=== PATIENT | male | born 1985 | race Caucasian/White ===

== ENCOUNTER 2020-04-13 13:52 | Emergency (ER) | payer OTHER, SELFPAY ==
[2020-04-13 14:06] VITALS: BP 140/86; PULSE 76; RESP 16; TEMP 36.6; O2SAT 98; BMI 40.4
--- NOTE | 2020-04-13 14:15 | XR_ITS ---
EXAMINATION: LUMBAR SPINE CLINICAL INFORMATION: Pain post fall COMPARISON: None TECHNIQUE: 3 views of the lumbar spine FINDINGS: There is mild curvature of the lower lumbar spine to the right. Bone alignment is otherwise normal. No fracture or dislocation is seen. Disc spaces are normal. XR/XR hip LT w PEL1V IMPRESSION: Mild scoliosis otherwise unremarkable exam EXAMINATION: Left hip and pelvis x-ray CLINICAL INFORMATION: Pain post fall COMPARISON: None. TECHNIQUE: One view of the pelvis and 2 views of the left hip FINDINGS: Bone alignment is normal. No fracture or dislocation is seen. The left hip joint is normal. Bones of the pelvis are normal. Soft tissues are normal. IMPRESSION: Unremarkable examination.
--- NOTE | 2020-04-13 14:15 | ED.FALL ---
HPI - Fall General Chief Complaint: Fall Stated Complaint: fall - hip pain Time Seen by Provider: 04/13/20 14:13 Source: patient Mode of arrival: ambulatory Limitations: no limitations History of Present Illness HPI Narrative: 34 y/o male with hx legal blindness, chronic pain on chronic opiates and muscle relaxers presenting with left hip pain and low back pain for the last 5 days after he slipped and fell down a set of stairs. He has been taking Tylenol and his Percocet and Flexeril at home with minimal improvement. He states the pain is in his left lower back, left hip and buttocks. He denies numbness, tingling, incontinence. No hx IVDA. He ambulates with a steady gait. MD complaint: fall Onset (ago): day(s) (5) Fall from: standing Fall witnessed: no Place fall occurred: home Loss of consciousness: none Prolonged down time: no Symptoms prior to fall: none Context: tripped/slipped Location of injury: back Location of injury - extremities: left: thigh (& left thip) Severity: moderate Severity scale (1-10): 8 Quality: aching Associated symptoms (after fall): denies Related Data Previous Rx's Medication Instructions Recorded ketorolac 10 mg PO Q8H PRN 3 Days #10 tab 04/13/20 lidocaine [Lidoderm] 1 patch TOPICAL DAILY #15 ea 04/13/20 Allergies Allergy/AdvReac Type Severity Reaction Status Date / Time amlodipine Allergy Unknown Verified 11/25/13 00:00 ibuprofen [From MOTRIN] Allergy Unknown DIFF Unverified 01/22/20 17:32 URINATING Metoprolol Succinate Allergy Unknown Uncoded 11/25/13 00:00 Review of Systems Review of Systems: Constitutional: No Fever, No Chills Cardiovascular: No Chest Pain, No SOB Respiratory: No Cough, No Sputum Gastrointestinal: No Nausea, No Vomiting, No Diarrhea, No abdominal Pain Genitourinary: No Dysuria, No Hematuria Musculoskeletal: + joint pain, + Myalgias Skin: No Skin Lesions, No rash Neuro: No Weakness, No Numbness, No Dizziness, No Headache Psych: No Anxiety/Panic, No Depression Heme/Lymph: No Bruising PMFSH Past Medical History Attestation statement: The following information was validated with the patient. Medical History Anxiety Depression Left sided numbness Social History Social History Advance Directives: No Advance Directives Information Provided: Yes Physical Exam Vital Signs: Vital Signs: Last Vital Signs Temp 97.8 F 04/13/20 14:06 Pulse 76 04/13/20 14:06 Resp 16 04/13/20 14:06 BP 140/86 H 04/13/20 14:06 Pulse Ox 98 04/13/20 14:06 Body Mass Index 40.4 Appearance: Alert. Oriented X3. No acute distress. HEENT: normal inspection Respiratory: No respiratory distress. Skin: Skin warm and dry. Normal skin color. Normal skin turgor. No rashes. Extremities: left buttock/SI joint tenderness, no deformity of left hip. pelvis stable. left lateral thigh tenderness. no ecchymosis. Back: left low lumbar tenderness, no spinal tenderness, limited rotation to the right and spinal flexion due to pain. no CVA tenderness Neuro: Oriented X 3. Right arm weakness, (chronic x10 years per patient) Course Course Course Narrative: 34 y/o male presenting with low back and left hip/thigh pain after falling down 7 stairs about 5 days ago. XR are normal. Pain is likely due to muscular contusion. He reports relief with IM toradol and is requesting Rx for Toradol - sent to pharmacy. He will f/u with his PCP this week. Stable for d/c. Critical Care Time Critical Care Time Critical Care Time: No Discharge Plan Discharge Clinical Impression: Contusion Qualifiers: Encounter type: initial encounter Contusion area: hip Laterality: left Qualified Code(s): S70.02XA - Contusion of left hip, initial encounter Fall down stairs Qualifiers: Encounter type: initial encounter Qualified Code(s): W10.8XXA - Fall (on) (from) other stairs and steps, initial encounter Patient Disposition: Home, Self-Care Instructions: Low Back Strain (ED), Lower Back Exercises (ED), Hip Contusion (ED) Additional Instructions: Your x-rays today in the [facility] were normal. Use ice and/or heat to the area several times per day for 20 minutes at a time. Limit bending, lifting >10lbs, and twisting motions. Continue to take your previously prescribed Percocet and Flexeril as needed for pain. Follow up with your doctor this week. If you have worsening pain, new numbness, tingling, loss of function, or continence call 911 or come back to the ER for further evaluation. Prescriptions: New ketorolac 10 mg tablet 10 mg PO Q8H PRN (Reason: pain) 3 Days Qty: 10 RF: 0 lidocaine [Lidoderm] 5 % adhesive patch,medicated 1 patch topical DAILY Qty: 15 RF: 0
--- NOTE | 2020-04-13 14:16 | XR_ITS ---
EXAMINATION: LUMBAR SPINE CLINICAL INFORMATION: Pain post fall COMPARISON: None TECHNIQUE: 3 views of the lumbar spine FINDINGS: There is mild curvature of the lower lumbar spine to the right. Bone alignment is otherwise normal. No fracture or dislocation is seen. Disc spaces are normal. XR/XR lumbar spine 2-3V IMPRESSION: Mild scoliosis otherwise unremarkable exam EXAMINATION: Left hip and pelvis x-ray CLINICAL INFORMATION: Pain post fall COMPARISON: None. TECHNIQUE: One view of the pelvis and 2 views of the left hip FINDINGS: Bone alignment is normal. No fracture or dislocation is seen. The left hip joint is normal. Bones of the pelvis are normal. Soft tissues are normal. IMPRESSION: Unremarkable examination.
[2020-04-13] MEDS: oxyCODONE HCl Immed Release 5 MG TABLET 10 MG PO (15:02)
[2020-04-13] MEDS: Ketorolac Tromethamine 30 MG/ML VIAL IM (15:03)
== END 2020-04-13 15:35 | disposition home or self-care (01) ==
PROVIDERS: Emergency Provider Emergency Medicine
DX: S70.02XA Contusion of left hip, initial encounter (principal); M25.552 Pain in left hip; M54.5 Low back pain; G89.29 Other chronic pain; W01.0XXA Fall on same level from slipping, tripping and stumbling without subsequent striking against object, initial encounter; Y93.01 Activity, walking, marching and hiking; Y92.9 Unspecified place or not applicable; Y99.9 Unspecified external cause status; Z79.899 Other long term (current) drug therapy
CPT/HCPCS: 72100; 73502; 96372; 99283; 99284; J1885

== ENCOUNTER 2020-08-21 18:57 | Emergency (ER) | payer OTHER, SELFPAY ==
[2020-08-21 19:18] VITALS: BP 124/78; PULSE 94; RESP 18; TEMP 36.7; O2SAT 97; BMI 42.5
[2020-08-21 20:00] VITALS: BP 126/82; PULSE 83; RESP 16; TEMP 36.8; O2SAT 100
--- NOTE | 2020-08-21 20:12 | ECG_ITS ---
Test Reason : CHEST PAIN Blood Pressure : / mmHG Vent. Rate : 088 BPM Atrial Rate : 088 BPM P-R Int : 174 ms QRS Dur : 100 ms QT Int : 382 ms P-R-T Axes : 031 -10 025 degrees QTc Int : 462 ms Normal sinus rhythm Nonspecific T wave changes Cannot rule out anteroseptal infarct Prolonged QT Abnormal ECG When compared with ECG of 21-JAN-2011 09:11, Poor R wave progression. Nonspecific T wave changes Referred By: Generic ED Physician Electronically Signed By:Eddi Frey
--- NOTE | 2020-08-21 20:22 | ED.GENADULT ---
HPI - General Adult General Chief complaint: General Medical Stated complaint: muscle cramps Time Seen by Provider: 08/21/20 20:22 Source: patient Mode of arrival: ambulatory Limitations: no limitations History of Present Illness HPI narrative: Patient with History of anxiety depression chronic muscular pain ran out of his Flexeril yesterday since then complaining of increased muscular pain patient already received Valente Valente vaccine last week and has no exposure to COVID, increased anxiety Related Data Previous Rx's Medication Instructions Recorded ketorolac 10 mg PO Q8H PRN 3 Days #10 tab 04/13/20 lidocaine [Lidoderm] 1 patch TOPICAL DAILY #15 ea 04/13/20 Allergies Allergy/AdvReac Type Severity Reaction Status Date / Time amlodipine Allergy Unknown Verified 11/25/13 00:00 ibuprofen [From MOTRIN] Allergy Unknown DIFF Unverified 01/22/20 17:32 URINATING Metoprolol Succinate Allergy Unknown Uncoded 11/25/13 00:00 Review of Systems Review of Systems: Constitutional : No Weight loss, No Fever, No Chills ENT/Mouth : No sore throat, No Rhinorrhea Eyes: No Eye Pain, No Swelling Cardiovascular : No Chest Pain, no palpitations Respiratory : No Cough, No Sputum, no shortness of breath Gastrointestinal : no Nausea, No Vomiting, No Diarrhea, No abdominal Pain, no black stools Genitourinary : No Dysuria, No Urinary Frequency Musculoskeletal : No joint pain, N++ Myalgias, No Joint Swelling Skin : No Skin Lesions, No rash Neuro : No Weakness, No Numbness, No Dizziness, No Headache Psych : No Anxiety/Panic, No Depression Heme/Lymph: No Bruising, No Lymphadenopathy Endocrine : No Polyuria, No Polydipsia All other systems reviewed and are negative PMFSH Past Medical History Medical History Anxiety Depression Left sided numbness Social History Social History Advance Directives: No Advance Directives Information Provided: No Physical Exam Vital Signs: Vital Signs: Last Vital Signs Temp 98.0 F 08/21/20 19:18 Pulse 94 08/21/20 19:18 Resp 18 08/21/20 19:18 BP 124/78 08/21/20 19:18 Pulse Ox 97 08/21/20 19:18 Body Mass Index 42.5 Appearance: Alert. Oriented X3. No acute distress. Eyes: Pupils equal, round and reactive to light. ENT: Pharynx normal. Neck: Normal inspection. Neck supple. CVS: Normal heart rate and rhythm. Pulses normal. Respiratory: No respiratory distress. Breath sounds normal. Abdomen: Soft and nontender. Bowel sounds are present, no mass palpable, no CVA tenderness Skin: Skin warm and dry. Normal skin color. Normal skin turgor. Extremities: No lower extremity edema. Diffuse muscular pain no signs of DVT Neuro: Oriented X 3. No motor deficit. No sensory deficit. Medical Decision Making MDM Narrative Medical decision making narrative: Patient with multiple problems anxiety depression chronic muscle pain on oxycodone and Flexeril comes here for diffuse body aches ran out of his Flexeril will give prescription of Flexeril advised to follow with PCP Discharge Plan Discharge Prescriptions: No Action ketorolac 10 mg tablet 10 mg PO Q8H PRN (Reason: pain) 3 Days Qty: 10 RF: 0 lidocaine [Lidoderm] 5 % adhesive patch,medicated 1 patch topical DAILY Qty: 15 RF: 0
[2020-08-21] MEDS: Cyclobenzaprine HCl 10 MG TABLET PO (20:43)
== END 2020-08-21 20:47 | disposition home or self-care (01) ==
PROVIDERS: Emergency Provider Internal Medicine
DX: M79.10 Myalgia, unspecified site (principal); F41.9 Anxiety disorder, unspecified; F33.1 Major depressive disorder, recurrent, moderate; Z79.899 Other long term (current) drug therapy
CPT/HCPCS: 93005; 99283; 99284

== ENCOUNTER 2021-01-27 15:54 | Inpatient (IN) | payer OTHER, SELFPAY ==
[2021-01-27 16:02] VITALS: BP 145/91; BP 150/88; PULSE 81; PULSE 98; RESP 16; TEMP 37.4; O2SAT 99; BMI 42.3
--- NOTE | 2021-01-27 16:03 | ED_ITS ---
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 He reports talking to his psychiatrist this morning and telling him that he was feeling this way - he was advised to call crisis. RAYGOZA on scene who called 911 for transport to the hospital. He reports voices are telling him to kill himself. He plans to jump off of a bridge. He reports attempting suicide a few years ago when he jumped off of a 2nd story porch. He reports no recent medication changes. He has been compliant with his meds up until today. Denies drugs or alcohol use. <MICKIE Gomes - Last Filed: 01/27/21 19:05> MD complaint: suicidal ideation, feels depressed and hallucinations <MICKIE Gomes - Last Filed: 01/27/21 19:05> Onset (ago): week(s) (1) <MICKIE Gomes - Last Filed: 01/27/21 19:05> Duration: getting worse <MICKIE Gomes Last Filed: 01/27/21 19:05> History of same: Yes <MICKIE Gomes - Last Filed: 01/27/21 19:05> Relieving factors: none <MICKIE Gomes Last Filed: 01/27/21 19:05> Exacerbating factors: none <MICKIE Gomes Last Filed: 01/27/21 19:05> Context: not taking psychiatric medications <MICKIE Gomes - Last Filed: 01/27/21 19:05> Associated psychiatric symptoms: depression, suicidal ideation and auditory hallucinations <MICKIE Masters - Last Filed: 01/27/21 19:05> Associated symptoms: headache and insomnia <MICKIE Gomes - Last Filed: 01/27/21 19:05> Treatments prior to arrival: placed on mental health hold <MICKIE Gomes - Last Filed: 01/27/21 19:05> If self harm: admits thoughts of self harm and has plan <MICKIE Gomes - Last Filed: 01/27/21 19:05> Details of plan: jump off of a bridge <MICKIE Gomes - Last Filed: 01/27/21 19:05> Related Data Home Medications: Home Medications Medication Instructions Recorded Confirmed Lotemax 1 drp OPHTHALMIC-LEFT DAILY 01/27/21 01/27/21 clonidine HCl 0.2 mg tablet 0.4 mg PO BEDTIME 01/27/21 01/27/21 cyclobenzaprine 10 mg tablet 10 mg PO TID PRN 01/27/21 01/27/21 fenofibrate 160 mg tablet 1 tab PO DAILY 01/27/21 01/27/21 hydrochlorothiazide 25 mg tablet 1 tab PO DAILY 01/27/21 01/27/21 lisinopril 40 mg tablet 1 tab PO DAILY 01/27/21 01/27/21 lorazepam 1 mg tablet 1 tab PO 3XW PRN 01/27/21 01/27/21 omeprazole 20 mg capsule,delayed 1 cap PO BID 01/27/21 01/27/21 release oxcarbazepine 600 mg tablet 600 mg PO BID 01/27/21 01/27/21 oxycodone-acetaminophen 5 mg-325 1 - 2 tab PO Q6H PRN 01/27/21 01/27/21 mg tablet paroxetine HCl 30 mg tablet 1 tab PO BEDTIME 01/27/21 01/27/21 simvastatin 40 mg tablet 1 tab PO BEDTIME 01/27/21 01/27/21 valacyclovir 500 mg tablet 1 tab PO BID 01/27/21 01/27/21 venlafaxine 37.5 mg 1 cap PO QAM 01/27/21 01/27/21 capsule,extended release 24 hr venlafaxine 75 mg capsule,extended 75 mg PO DAILY 01/27/21 01/27/21 release 24 hr ziprasidone HCl 60 mg capsule 1 cap PO BID 01/27/21 01/27/21 <MICKIE Gomes - Last Filed: 01/27/21 19:05> Allergies/Adverse Reactions: Allergies Allergy/AdvReac Type Severity Reaction Status Date / Time amlodipine Allergy Unknown Unknown Verified 01/27/21 19:31 ibuprofen [From MOTRIN] Allergy Unknown DIFF Verified 01/27/21 19:31 URINATING Metoprolol Succinate Allergy Unknown Unknown Uncoded 01/27/21 19:31 <MICKIE Gomes - Last Filed: 01/27/21 19:05> Review of Systems Review of Systems: Constitutional: No Fever, No Chills Cardiovascular: No Chest Pain, No SOB, No Orthopnea, No Edema Respiratory: No Cough, No Sputum, No Wheezing, No dyspnea Gastrointestinal: No Nausea, No Vomiting, No Diarrhea, No abdominal Pain Genitourinary: No Dysuria, No Urinary Frequency, No Hematuria Musculoskeletal: + joint pain, No Myalgias Skin: No Skin Lesions, No rash Neuro: No Weakness, No Numbness, No Dizziness, No Headache Psych: + Anxiety/Panic, + Depression, +SI, +auditory hallucinations, no visual hallucinations Heme/Lymph: No Bruising, No Lymphadenopathy <MICKIE Gomes Last Filed: 01/27/21 19:05> [facility] Past Medical History Medical History: Medical History Anxiety Depression Left sided numbness <MICKIE Gomes Last Filed: 01/27/21 19:05> Social History Social History: Social History Alcohol intake: never Advance Directives: No Advance Directives Information Provided: No <MICKIE Gomes Last Filed: 01/27/21 19:05> Physical Exam Vital Signs: Vital Signs: Last Vital Signs Temp 98.2 F 01/27/21 20:27 Pulse 77 01/27/21 20:27 Resp 18 01/27/21 20:27 BP 118/79 01/27/21 20:27 Pulse Ox 98 01/27/21 20:27 Body Mass Index 42.3 <MICKIE Gomes - Last Filed: 01/27/21 19:05> Vital Signs: Last Vital Signs Temp 98.2 F 01/27/21 20:27 Pulse 77 01/27/21 20:27 Resp 18 01/27/21 20:27 BP 118/79 01/27/21 20:27 Pulse Ox 98 01/27/21 20:27 Body Mass Index 42.3 <MICKIE Askew - Last Filed: 01/27/21 20:35> Appearance: Alert. Oriented X3. No acute distress. Eyes: Pupils equal, round and reactive to light. Left eye with conjunctival injection ENT: Pharynx normal. Neck: Normal inspection. Neck supple. CVS: Normal heart rate and rhythm. Pulses normal. Respiratory: No respiratory distress. Breath sounds normal. Abdomen: Soft and nontender. +BS x4 Skin: Skin warm and dry. Normal skin color. Normal skin turgor. No rashes. Extremities: No lower extremity edema. RUE with significant scarring to upper medial arm, weak right hand grasp and sensation Neuro: Oriented X 3. Speaks in complete sentences. Steady gait. CN II-XII grossly intact Psych: flat affect, depression with suicidal thoughts, auditory hallucinations, poor judgment and insight <MICKIE Gomes - Last Filed: 01/27/21 19:05> Course Course Course Narrative: 35 y/o male with history of anxiety/depression and schizoaffective disorder, prior suicide attempt per his report who presents to the ER with SI, auditory hallucinations. Will get basic labs, UTox and have crisis evaluate him for possible inpatient psych treatment. <MICKIE Gomes - Last Filed: 01/27/21 19:05> Reevaluation(s) Reevaluation #1: [facility] saw him in the community and he is already an inpatient bed search. Labs returning with sodium of 126. Unknown baseline, last labs in our system are from 2016 with sodium 138. He has no confusion, AMS, nausea, vomiting. Most likely multifactorial, he is on HCTZ for HTN and multiple medications that can cause SIADH (lisinopril, multiple psych meds) will add on urine lytes and serum osm. will hold psych meds for now pending repeat sodium. Will plan for 500 cc NS slowly over the next couple of hours to correct possible volume depletion due to HCTZ and poor PO intake with his worsening depression. Will move to the main for IVF and repeat sodium. Will get labs from [facility] <MICKIE Gomes - Last Filed: 01/27/21 19:05> Reevaluation #2: Sodium was 135 at [facility] 12/10/20. Urine sodium 76, likely element of hypovolemic hyponatremia and HCTZ. Should improve with some IVF. Signed out to night provider who will follow up repeat sodium. <MICKIE Gomes - Last Filed: 01/27/21 19:05> MDM - Psych Lab Data Result diagrams: : 01/27/21 16:41 01/27/21 20:00 <MICKIE Gomes - Last Filed: 01/27/21 19:05> Labs: Lab Results 01/27/21 01/27/21 01/27/21 Range/Units 16:26 16:26 16:26 WBC (4.8-10.8) X10*3/uL RBC (4.60-5.80) X10*6/uL Hgb (14.0-18.0) g/dl Hct (42-52) % MCV (80-98) fL MCH (27.0-33.0) pg MCHC (31.0-36.0) g/dl RDW (11.0-16.0) % Plt Count (160-400) X10*3/uL MPV (9.4-12.4) fL Immature Gran % (Auto) (0.0-0.4) % Neut % (Auto) (45-73) % Lymph % (Auto) (20-40) % [place] % (Auto) (2-11) % Eos % (Auto) (0-4) % Baso % (Auto) (0-2) % Lymph # (Auto) (1.2-4.9) X10*3/uL [place] # (Auto) (0.1-1.2) X10*3/uL Eos # (Auto) (0.0-0.4) X10*3/uL Baso # (Auto) (0.0-0.2) X10*3/uL Abs Immat Gran (auto) (0.00-0.03) X10*3/uL Absolute Neuts (auto) (2.0-8.3) X10*3/uL Absolute Nucleated RBC (0.0-0.012) X10*3/uL Nucleated RBC % (auto) (0.0-0.2) /100WBC Sodium (135-145) mmol/L Potassium (3.3-5.1) mmol/L Chloride (96-108) mmol/L Carbon Dioxide (22-29) mmol/L Anion Gap (12-20) BUN (9-16) mg/dL Creatinine (0.5-1.4) mg/dL Estim Creat Clear Calc Estimated GFR Random Glucose (60-115) mg/dL Osmolality (281-305) mosm/kg Calcium (8.4-10.2) mg/dL Magnesium (1.6-2.6) mg/dL Total Bilirubin (0.0-1.0) mg/dL Direct Bilirubin (0.0-0.5) mg/dL AST (5-37) U/L ALT (0-40) U/L Alkaline Phosphatase (39-117) U/L Total Protein (6.5-8.0) g/dL Albumin (3.5-5.0) g/dL Urine Color YELLOW Urine Appearance CLEAR Urine pH 7.5 (5.0-8.0) Ur Specific [place] 1.015 (1.005-1.025) Urine Protein NEG (NEG-TRACE) MG/DL Urine Glucose (UA) NEG (NEG) MG/DL Urine Ketones NEG (NEG) MG/DL Urine Blood NEG (NEG) Urine Nitrite NEG (NEG) Ur Leukocyte Esterase NEG (NEG) Urine Osmolality (373-1093) mosm/kg Ur Random Sodium mmol/L Urine Opiates Screen Not Detected (Not Detect) Urine Fentanyl Screen Not Detected (Not Detect) Ur Barbiturates Screen Not Detected (Not Detect) Ur Phencyclidine Scrn Not Detected (Not Detect) Ur Amphetamines Screen Not Detected (Not Detect) U Benzodiazepines Scrn Not Detected (Not Detect) Urine Cocaine Screen Not Detected (Not Detect) U Marijuana (THC) Screen Not Detected (Not Detect) Ethyl Alcohol mg/dL COVID-19 (BILL) Negative (Negative) COVID-19 Clin Com See Note 01/27/21 01/27/21 01/27/21 Range/Units 16:30 16:30 16:41 WBC 9.0 (4.8-10.8) X10*3/uL RBC 4.53 L (4.60-5.80) X10*6/uL Hgb 14.1 (14.0-18.0) g/dl Hct 39.1 L (42-52) % MCV 86.3 (80-98) fL MCH 31.1 (27.0-33.0) pg MCHC 36.1 H (31.0-36.0) g/dl RDW 11.9 (11.0-16.0) % Plt Count 361 (160-400) X10*3/uL MPV 9.5 (9.4-12.4) fL Immature Gran % (Auto) 0.4 (0.0-0.4) % Neut % (Auto) 61.3 (45-73) % Lymph % (Auto) 28.0 (20-40) % [place] % (Auto) 8.7 (2-11) % Eos % (Auto) 1.2 (0-4) % Baso % (Auto) 0.4 (0-2) % Lymph # (Auto) 2.5 (1.2-4.9) X10*3/uL [place] # (Auto) 0.8 (0.1-1.2) X10*3/uL Eos # (Auto) 0.1 (0.0-0.4) X10*3/uL Baso # (Auto) 0.0 (0.0-0.2) X10*3/uL Abs Immat Gran (auto) 0.04 H (0.00-0.03) X10*3/uL Absolute Neuts (auto) 5.5 (2.0-8.3) X10*3/uL Absolute Nucleated RBC 0.000 (0.0-0.012) X10*3/uL Nucleated RBC % (auto) 0.0 (0.0-0.2) /100WBC Sodium (135-145) mmol/L Potassium (3.3-5.1) mmol/L Chloride (96-108) mmol/L Carbon Dioxide (22-29) mmol/L Anion Gap (12-20) BUN (9-16) mg/dL Creatinine (0.5-1.4) mg/dL Estim Creat Clear Calc Estimated GFR Random Glucose (60-115) mg/dL Osmolality (281-305) mosm/kg Calcium (8.4-10.2) mg/dL Magnesium (1.6-2.6) mg/dL Total Bilirubin (0.0-1.0) mg/dL Direct Bilirubin (0.0-0.5) mg/dL AST (5-37) U/L ALT (0-40) U/L Alkaline Phosphatase (39-117) U/L Total Protein (6.5-8.0) g/dL Albumin (3.5-5.0) g/dL Urine Color Urine Appearance Urine pH (5.0-8.0) Ur Specific [place] (1.005-1.025) Urine Protein (NEG-TRACE) MG/DL Urine Glucose (UA) (NEG) MG/DL Urine Ketones (NEG) MG/DL Urine Blood (NEG) Urine Nitrite (NEG) Ur Leukocyte Esterase (NEG) Urine Osmolality 461 (373-1093) mosm/kg Ur Random Sodium 76.0 mmol/L Urine Opiates Screen (Not Detect) Urine Fentanyl Screen (Not Detect) Ur Barbiturates Screen (Not Detect) Ur Phencyclidine Scrn (Not Detect) Ur Amphetamines Screen (Not Detect) U Benzodiazepines Scrn (Not Detect) Urine Cocaine Screen (Not Detect) U Marijuana (THC) Screen (Not Detect) Ethyl Alcohol mg/dL COVID-19 (BILL) (Negative) COVID-19 Clin Com 01/27/21 01/27/21 01/27/21 Range/Units 16:41 16:41 16:41 WBC (4.8-10.8) X10*3/uL RBC (4.60-5.80) X10*6/uL Hgb (14.0-18.0) g/dl Hct (42-52) % MCV (80-98) fL MCH (27.0-33.0) pg MCHC (31.0-36.0) g/dl RDW (11.0-16.0) % Plt Count (160-400) X10*3/uL MPV (9.4-12.4) fL Immature Gran % (Auto) (0.0-0.4) % Neut % (Auto) (45-73) % Lymph % (Auto) (20-40) % [place] % (Auto) (2-11) % Eos % (Auto) (0-4) % Baso % (Auto) (0-2) % Lymph # (Auto) (1.2-4.9) X10*3/uL [place] # (Auto) (0.1-1.2) X10*3/uL Eos # (Auto) (0.0-0.4) X10*3/uL Baso # (Auto) (0.0-0.2) X10*3/uL Abs Immat Gran (auto) (0.00-0.03) X10*3/uL Absolute Neuts (auto) (2.0-8.3) X10*3/uL Absolute Nucleated RBC (0.0-0.012) X10*3/uL Nucleated RBC % (auto) (0.0-0.2) /100WBC Sodium 126 L (135-145) mmol/L Potassium 3.9 (3.3-5.1) mmol/L Chloride 93 L (96-108) mmol/L Carbon Dioxide 23 (22-29) mmol/L Anion Gap 14 (12-20) BUN 8 L (9-16) mg/dL Creatinine 0.87 (0.5-1.4) mg/dL Estim Creat Clear Calc 151.8 Estimated GFR > 60 Random Glucose 127 H (60-115) mg/dL Osmolality 266 L (281-305) mosm/kg Calcium 9.5 (8.4-10.2) mg/dL Magnesium 1.9 (1.6-2.6) mg/dL Total Bilirubin 0.4 (0.0-1.0) mg/dL Direct Bilirubin 0.2 (0.0-0.5) mg/dL AST 16 (5-37) U/L ALT 16 (0-40) U/L Alkaline Phosphatase 71 (39-117) U/L Total Protein 7.8 (6.5-8.0) g/dL Albumin 5.1 H (3.5-5.0) g/dL Urine Color Urine Appearance Urine pH (5.0-8.0) Ur Specific [place] (1.005-1.025) Urine Protein (NEG-TRACE) MG/DL Urine Glucose (UA) (NEG) MG/DL Urine Ketones (NEG) MG/DL Urine Blood (NEG) Urine Nitrite (NEG) Ur Leukocyte Esterase (NEG) Urine Osmolality (373-1093) mosm/kg Ur Random Sodium mmol/L Urine Opiates Screen (Not Detect) Urine Fentanyl Screen (Not Detect) Ur Barbiturates Screen (Not Detect) Ur Phencyclidine Scrn (Not Detect) Ur Amphetamines Screen (Not Detect) U Benzodiazepines Scrn (Not Detect) Urine Cocaine Screen (Not Detect) U Marijuana (THC) Screen (Not Detect) Ethyl Alcohol < 10 mg/dL COVID-19 (BILL) (Negative) COVID-19 Clin Com 01/27/21 Range/Units 20:00 WBC (4.8-10.8) X10*3/uL RBC (4.60-5.80) X10*6/uL Hgb (14.0-18.0) g/dl Hct (42-52) % MCV (80-98) fL MCH (27.0-33.0) pg MCHC (31.0-36.0) g/dl RDW (11.0-16.0) % Plt Count (160-400) X10*3/uL MPV (9.4-12.4) fL Immature Gran % (Auto) (0.0-0.4) % Neut % (Auto) (45-73) % Lymph % (Auto) (20-40) % [place] % (Auto) (2-11) % Eos % (Auto) (0-4) % Baso % (Auto) (0-2) % Lymph # (Auto) (1.2-4.9) X10*3/uL [place] # (Auto) (0.1-1.2) X10*3/uL Eos # (Auto) (0.0-0.4) X10*3/uL Baso # (Auto) (0.0-0.2) X10*3/uL Abs Immat Gran (auto) (0.00-0.03) X10*3/uL Absolute Neuts (auto) (2.0-8.3) X10*3/uL Absolute Nucleated RBC (0.0-0.012) X10*3/uL Nucleated RBC % (auto) (0.0-0.2) /100WBC Sodium 126 L (135-145) mmol/L Potassium (3.3-5.1) mmol/L Chloride (96-108) mmol/L Carbon Dioxide (22-29) mmol/L Anion Gap (12-20) BUN (9-16) mg/dL Creatinine (0.5-1.4) mg/dL Estim Creat Clear Calc Estimated GFR Random Glucose (60-115) mg/dL Osmolality (281-305) mosm/kg Calcium (8.4-10.2) mg/dL Magnesium (1.6-2.6) mg/dL Total Bilirubin (0.0-1.0) mg/dL Direct Bilirubin (0.0-0.5) mg/dL AST (5-37) U/L ALT (0-40) U/L Alkaline Phosphatase (39-117) U/L Total Protein (6.5-8.0) g/dL Albumin (3.5-5.0) g/dL Urine Color Urine Appearance Urine pH (5.0-8.0) Ur Specific [place] (1.005-1.025) Urine Protein (NEG-TRACE) MG/DL Urine Glucose (UA) (NEG) MG/DL Urine Ketones (NEG) MG/DL Urine Blood (NEG) Urine Nitrite (NEG) Ur Leukocyte Esterase (NEG) Urine Osmolality (373-1093) mosm/kg Ur Random Sodium mmol/L Urine Opiates Screen (Not Detect) Urine Fentanyl Screen (Not Detect) Ur Barbiturates Screen (Not Detect) Ur Phencyclidine Scrn (Not Detect) Ur Amphetamines Screen (Not Detect) U Benzodiazepines Scrn (Not Detect) Urine Cocaine Screen (Not Detect) U Marijuana (THC) Screen (Not Detect) Ethyl Alcohol mg/dL COVID-19 (BILL) (Negative) COVID-19 Clin Com <MICKIE Gomes - Last Filed: 01/27/21 19:05> Lab Results 01/27/21 01/27/21 01/27/21 Range/Units 16:26 16:26 16:26 WBC (4.8-10.8) X10*3/uL RBC (4.60-5.80) X10*6/uL Hgb (14.0-18.0) g/dl Hct (42-52) % MCV (80-98) fL MCH (27.0-33.0) pg MCHC (31.0-36.0) g/dl RDW (11.0-16.0) % Plt Count (160-400) X10*3/uL MPV (9.4-12.4) fL Immature Gran % (Auto) (0.0-0.4) % Neut % (Auto) (45-73) % Lymph % (Auto) (20-40) % [place] % (Auto) (2-11) % Eos % (Auto) (0-4) % Baso % (Auto) (0-2) % Lymph # (Auto) (1.2-4.9) X10*3/uL [place] # (Auto) (0.1-1.2) X10*3/uL Eos # (Auto) (0.0-0.4) X10*3/uL Baso # (Auto) (0.0-0.2) X10*3/uL Abs Immat Gran (auto) (0.00-0.03) X10*3/uL Absolute Neuts (auto) (2.0-8.3) X10*3/uL Absolute Nucleated RBC (0.0-0.012) X10*3/uL Nucleated RBC % (auto) (0.0-0.2) /100WBC Sodium (135-145) mmol/L Potassium (3.3-5.1) mmol/L Chloride (96-108) mmol/L Carbon Dioxide (22-29) mmol/L Anion Gap (12-20) BUN (9-16) mg/dL Creatinine (0.5-1.4) mg/dL Estim Creat Clear Calc Estimated GFR Random Glucose (60-115) mg/dL Osmolality (281-305) mosm/kg Calcium (8.4-10.2) mg/dL Magnesium (1.6-2.6) mg/dL Total Bilirubin (0.0-1.0) mg/dL Direct Bilirubin (0.0-0.5) mg/dL AST (5-37) U/L ALT (0-40) U/L Alkaline Phosphatase (39-117) U/L Total Protein (6.5-8.0) g/dL Albumin (3.5-5.0) g/dL Urine Color YELLOW Urine Appearance CLEAR Urine pH 7.5 (5.0-8.0) Ur Specific [place] 1.015 (1.005-1.025) Urine Protein NEG (NEG-TRACE) MG/DL Urine Glucose (UA) NEG (NEG) MG/DL Urine Ketones NEG (NEG) MG/DL Urine Blood NEG (NEG) Urine Nitrite NEG (NEG) Ur Leukocyte Esterase NEG (NEG) Urine Osmolality (373-1093) mosm/kg Ur Random Sodium mmol/L Urine Opiates Screen Not Detected (Not Detect) Urine Fentanyl Screen Not Detected (Not Detect) Ur Barbiturates Screen Not Detected (Not Detect) Ur Phencyclidine Scrn Not Detected (Not Detect) Ur Amphetamines Screen Not Detected (Not Detect) U Benzodiazepines Scrn Not Detected (Not Detect) Urine Cocaine Screen Not Detected (Not Detect) U Marijuana (THC) Screen Not Detected (Not Detect) Ethyl Alcohol mg/dL COVID-19 (BILL) Negative (Negative) COVID-19 Clin Com See Note 01/27/21 01/27/21 01/27/21 Range/Units 16:30 16:30 16:41 WBC 9.0 (4.8-10.8) X10*3/uL RBC 4.53 L (4.60-5.80) X10*6/uL Hgb 14.1 (14.0-18.0) g/dl Hct 39.1 L (42-52) % MCV 86.3 (80-98) fL MCH 31.1 (27.0-33.0) pg MCHC 36.1 H (31.0-36.0) g/dl RDW 11.9 (11.0-16.0) % Plt Count 361 (160-400) X10*3/uL MPV 9.5 (9.4-12.4) fL Immature Gran % (Auto) 0.4 (0.0-0.4) % Neut % (Auto) 61.3 (45-73) % Lymph % (Auto) 28.0 (20-40) % [place] % (Auto) 8.7 (2-11) % Eos % (Auto) 1.2 (0-4) % Baso % (Auto) 0.4 (0-2) % Lymph # (Auto) 2.5 (1.2-4.9) X10*3/uL [place] # (Auto) 0.8 (0.1-1.2) X10*3/uL Eos # (Auto) 0.1 (0.0-0.4) X10*3/uL Baso # (Auto) 0.0 (0.0-0.2) X10*3/uL Abs Immat Gran (auto) 0.04 H (0.00-0.03) X10*3/uL Absolute Neuts (auto) 5.5 (2.0-8.3) X10*3/uL Absolute Nucleated RBC 0.000 (0.0-0.012) X10*3/uL Nucleated RBC % (auto) 0.0 (0.0-0.2) /100WBC Sodium (135-145) mmol/L Potassium (3.3-5.1) mmol/L Chloride (96-108) mmol/L Carbon Dioxide (22-29) mmol/L Anion Gap (12-20) BUN (9-16) mg/dL Creatinine (0.5-1.4) mg/dL Estim Creat Clear Calc Estimated GFR Random Glucose (60-115) mg/dL Osmolality (281-305) mosm/kg Calcium (8.4-10.2) mg/dL Magnesium (1.6-2.6) mg/dL Total Bilirubin (0.0-1.0) mg/dL Direct Bilirubin (0.0-0.5) mg/dL AST (5-37) U/L ALT (0-40) U/L Alkaline Phosphatase (39-117) U/L Total Protein (6.5-8.0) g/dL Albumin (3.5-5.0) g/dL Urine Color Urine Appearance Urine pH (5.0-8.0) Ur Specific [place] (1.005-1.025) Urine Protein (NEG-TRACE) MG/DL Urine Glucose (UA) (NEG) MG/DL Urine Ketones (NEG) MG/DL Urine Blood (NEG) Urine Nitrite (NEG) Ur Leukocyte Esterase (NEG) Urine Osmolality 461 (373-1093) mosm/kg Ur Random Sodium 76.0 mmol/L Urine Opiates Screen (Not Detect) Urine Fentanyl Screen (Not Detect) Ur Barbiturates Screen (Not Detect) Ur Phencyclidine Scrn (Not Detect) Ur Amphetamines Screen (Not Detect) U Benzodiazepines Scrn (Not Detect) Urine Cocaine Screen (Not Detect) U Marijuana (THC) Screen (Not Detect) Ethyl Alcohol mg/dL COVID-19 (BILL) (Negative) COVID-19 Clin Com 01/27/21 01/27/21 01/27/21 Range/Units 16:41 16:41 16:41 WBC (4.8-10.8) X10*3/uL RBC (4.60-5.80) X10*6/uL Hgb (14.0-18.0) g/dl Hct (42-52) % MCV (80-98) fL MCH (27.0-33.0) pg MCHC (31.0-36.0) g/dl RDW (11.0-16.0) % Plt Count (160-400) X10*3/uL MPV (9.4-12.4) fL Immature Gran % (Auto) (0.0-0.4) % Neut % (Auto) (45-73) % Lymph % (Auto) (20-40) % [place] % (Auto) (2-11) % Eos % (Auto) (0-4) % Baso % (Auto) (0-2) % Lymph # (Auto) (1.2-4.9) X10*3/uL [place] # (Auto) (0.1-1.2) X10*3/uL Eos # (Auto) (0.0-0.4) X10*3/uL Baso # (Auto) (0.0-0.2) X10*3/uL Abs Immat Gran (auto) (0.00-0.03) X10*3/uL Absolute Neuts (auto) (2.0-8.3) X10*3/uL Absolute Nucleated RBC (0.0-0.012) X10*3/uL Nucleated RBC % (auto) (0.0-0.2) /100WBC Sodium 126 L (135-145) mmol/L Potassium 3.9 (3.3-5.1) mmol/L Chloride 93 L (96-108) mmol/L Carbon Dioxide 23 (22-29) mmol/L Anion Gap 14 (12-20) BUN 8 L (9-16) mg/dL Creatinine 0.87 (0.5-1.4) mg/dL Estim Creat Clear Calc 151.8 Estimated GFR > 60 Random Glucose 127 H (60-115) mg/dL Osmolality 266 L (281-305) mosm/kg Calcium 9.5 (8.4-10.2) mg/dL Magnesium 1.9 (1.6-2.6) mg/dL Total Bilirubin 0.4 (0.0-1.0) mg/dL Direct Bilirubin 0.2 (0.0-0.5) mg/dL AST 16 (5-37) U/L ALT 16 (0-40) U/L Alkaline Phosphatase 71 (39-117) U/L Total Protein 7.8 (6.5-8.0) g/dL Albumin 5.1 H (3.5-5.0) g/dL Urine Color Urine Appearance Urine pH (5.0-8.0) Ur Specific [place] (1.005-1.025) Urine Protein (NEG-TRACE) MG/DL Urine Glucose (UA) (NEG) MG/DL Urine Ketones (NEG) MG/DL Urine Blood (NEG) Urine Nitrite (NEG) Ur Leukocyte Esterase (NEG) Urine Osmolality (373-1093) mosm/kg Ur Random Sodium mmol/L Urine Opiates Screen (Not Detect) Urine Fentanyl Screen (Not Detect) Ur Barbiturates Screen (Not Detect) Ur Phencyclidine Scrn (Not Detect) Ur Amphetamines Screen (Not Detect) U Benzodiazepines Scrn (Not Detect) Urine Cocaine Screen (Not Detect) U Marijuana (THC) Screen (Not Detect) Ethyl Alcohol < 10 mg/dL COVID-19 (BILL) (Negative) COVID-19 Clin Com 01/27/21 Range/Units 20:00 WBC (4.8-10.8) X10*3/uL RBC (4.60-5.80) X10*6/uL Hgb (14.0-18.0) g/dl Hct (42-52) % MCV (80-98) fL MCH (27.0-33.0) pg MCHC (31.0-36.0) g/dl RDW (11.0-16.0) % Plt Count (160-400) X10*3/uL MPV (9.4-12.4) fL Immature Gran % (Auto) (0.0-0.4) % Neut % (Auto) (45-73) % Lymph % (Auto) (20-40) % [place] % (Auto) (2-11) % Eos % (Auto) (0-4) % Baso % (Auto) (0-2) % Lymph # (Auto) (1.2-4.9) X10*3/uL [place] # (Auto) (0.1-1.2) X10*3/uL Eos # (Auto) (0.0-0.4) X10*3/uL Baso # (Auto) (0.0-0.2) X10*3/uL Abs Immat Gran (auto) (0.00-0.03) X10*3/uL Absolute Neuts (auto) (2.0-8.3) X10*3/uL Absolute Nucleated RBC (0.0-0.012) X10*3/uL Nucleated RBC % (auto) (0.0-0.2) /100WBC Sodium 126 L (135-145) mmol/L Potassium (3.3-5.1) mmol/L Chloride (96-108) mmol/L Carbon Dioxide (22-29) mmol/L Anion Gap (12-20) BUN (9-16) mg/dL Creatinine (0.5-1.4) mg/dL Estim Creat Clear Calc Estimated GFR Random Glucose (60-115) mg/dL Osmolality (281-305) mosm/kg Calcium (8.4-10.2) mg/dL Magnesium (1.6-2.6) mg/dL Total Bilirubin (0.0-1.0) mg/dL Direct Bilirubin (0.0-0.5) mg/dL AST (5-37) U/L ALT (0-40) U/L Alkaline Phosphatase (39-117) U/L Total Protein (6.5-8.0) g/dL Albumin (3.5-5.0) g/dL Urine Color Urine Appearance Urine pH (5.0-8.0) Ur Specific [place] (1.005-1.025) Urine Protein (NEG-TRACE) MG/DL Urine Glucose (UA) (NEG) MG/DL Urine Ketones (NEG) MG/DL Urine Blood (NEG) Urine Nitrite (NEG) Ur Leukocyte Esterase (NEG) Urine Osmolality (373-1093) mosm/kg Ur Random Sodium mmol/L Urine Opiates Screen (Not Detect) Urine Fentanyl Screen (Not Detect) Ur Barbiturates Screen (Not Detect) Ur Phencyclidine Scrn (Not Detect) Ur Amphetamines Screen (Not Detect) U Benzodiazepines Scrn (Not Detect) Urine Cocaine Screen (Not Detect) U Marijuana (THC) Screen (Not Detect) Ethyl Alcohol mg/dL COVID-19 (BILL) (Negative) COVID-19 Clin Com <MICKIE Askew - Last Filed: 01/27/21 20:35> Discharge Plan Discharge Clinical Impression: Suicidal ideation, Hyponatremia <MICKIE Gomes - Last Filed: 01/27/21 19:05> Prescriptions: No Action valacyclovir 500 mg tablet 1 tab PO BID RF: 0 simvastatin 40 mg tablet 1 tab PO BEDTIME RF: 0 oxycodone-acetaminophen 5-325 mg tablet 1 - 2 tab PO Q6H PRN (Reason: pain) RF: 0 clonidine HCl 0.2 mg tablet 0.4 mg PO BEDTIME RF: 0 omeprazole 20 mg capsule,delayed release(DR/EC) 1 cap PO BID RF: 0 oxcarbazepine 600 mg tablet 600 mg PO BID RF: 0 hydrochlorothiazide 25 mg tablet 1 tab PO DAILY RF: 0 lorazepam 1 mg tablet 1 tab PO 3XW PRN (Reason: anxiety) RF: 0 ziprasidone HCl 60 mg capsule 1 cap PO BID RF: 0 lisinopril 40 mg tablet 1 tab PO DAILY RF: 0 fenofibrate 160 mg tablet 1 tab PO DAILY RF: 0 Lotemax drops 1 drp ophthalmic-Left DAILY RF: 0 cyclobenzaprine 10 mg tablet 10 mg PO TID PRN (Reason: Spasms) RF: 0 venlafaxine 37.5 mg capsule,extended release 24hr 1 cap PO QAM RF: 0 venlafaxine 75 mg capsule,extended release 24hr 75 mg PO DAILY RF: 0 paroxetine HCl 30 mg tablet 1 tab PO BEDTIME RF: 0 <MICKIE Gomes - Last Filed: 01/27/21 19:05>
[2021-01-27 16:41] LABS: Appearance Urine CLEAR; Color Urine YELLOW; Glucose Urine UA NEG (NEG); Leukocyte Esterase Urine NEG (NEG); Nitrite Urine NEG (NEG); PH 7.5 (5.0-8.0); Specific Gravity - Urine 1.015 (1.005-1.025); Urine Blood NEG (NEG); Urine Ketones NEG (NEG); Urine Protein NEG (NEG-TRACE)
[2021-01-27 16:46] LABS: Amphetamine Screen Urine Not Detected (Not Detect); Barbiturates, Urine Not Detected (Not Detect); Benzodiazepines Screen Urine Not Detected (Not Detect); Cannabinoid Screen Urine Not Detected (Not Detect); Cocaine Screen Urine Not Detected (Not Detect); Fentanyl, urine Not Detected (Not Detect); Opiate Screen Urine Not Detected (Not Detect); Phencyclidine Screen Urine Not Detected (Not Detect)
[2021-01-27 16:48] LABS: MANUAL DIFF FLAG NO
[2021-01-27 16:51] LABS: Basophils Percent Auto 0.4 % (0-2); Eosinophils Absolute Auto 0.1 X10*3/uL (0.0-0.4); Eosinophils Percent Auto 1.2 % (0-4); Hematocrit 39.1 % (42-52); Hemoglobin 14.1 g/dl (14.0-18.0); Imm Gran Abs Auto 0.04 X10*3/uL (0.00-0.03); Imm Gran Pct Auto 0.4 % (0.0-0.4); Lymphocytes Absolute Auto 2.5 X10*3/uL (1.2-4.9); Mean Corpuscular HGB Conc 36.1 g/dl (31.0-36.0); Mean Corpuscular Hemoglobin 31.1 pg (27.0-33.0); Mean Corpuscular Volume 86.3 fL (80-98); Mean Platelet Volume 9.5 fL (9.4-12.4); Monocytes Absolute Auto 0.8 X10*3/uL (0.1-1.2); Monocytes Percent Auto 8.7 % (2-11); Neutrophils Absolute Auto 5.5 X10*3/uL (2.0-8.3); Neutrophils Percent Auto 61.3 % (45-73); Platelet Count 361 X10*3/uL (160-400); Red Blood Count 4.53 X10*6/uL (4.60-5.80); Red Cell Distribution Width 11.9 % (11.0-16.0)
[2021-01-27 16:51] LABS: COVID-19 Test Negative (Negative)
[2021-01-27 17:00] LABS: Ethanol < 10 mg/dL
--- NOTE | 2021-01-27 17:01 | PHA.MEDREC ---
Pharmacy Consult ? Medication Reconciliation Pharmacy has completed the medication reconciliation. nurse confirmed timing of medications with patient. Of note, patient states they take oxcarbamazepine 600mg BID, when the RX states 600mg QAM and 1200mg QPM. Also, the patient states they take Lorazepam BID, but the RX is for 3 times a week PRN. Thanks Magdaleno Crowe Pharm. D
[2021-01-27 17:04] LABS: Alanine Aminotransferase 16 U/L (0-40); Albumin Level 5.1 g/dL (3.5-5.0); Alkaline Phosphatase 71 U/L (39-117); Anion Gap 14 (12-20); Aspartate Amino Transferase 16 U/L (5-37); Bilirubin Direct 0.2 mg/dL (0.0-0.5); Bilirubin Total 0.4 mg/dL (0.0-1.0); Blood Urea Nitrogen 8 mg/dL (9-16); Calcium 9.5 mg/dL (8.4-10.2); Carbon Dioxide 23 mmol/L (22-29); Chloride 93 mmol/L (96-108); Creatinine Clr Calc Pharmacy 151.8; Estimated Glomerular Filt Rate > 60; Glucose Random 127 mg/dL (60-115); Magnesium 1.9 mg/dL (1.6-2.6); Potassium 3.9 mmol/L (3.3-5.1); Sodium 126 mmol/L (135-145); Total Protein 7.8 g/dL (6.5-8.0)
--- NOTE | 2021-01-27 17:12 | ECG_ITS ---
Test Reason : CHEST PAIN Blood Pressure : / mmHG Vent. Rate : 078 BPM Atrial Rate : 078 BPM P-R Int : 164 ms QRS Dur : 092 ms QT Int : 402 ms P-R-T Axes : 034 -05 012 degrees QTc Int : 458 ms Normal sinus rhythm Normal ECG When compared with ECG of 21-AUG-2020 19:14, No significant change was found Referred By: Kathy Corona Electronically Signed By:ANA NARVAEZ
[2021-01-27] MEDS: 0.9 % Sodium Chloride 500 ML 250 ML IVCONT (17:48)
[2021-01-27] MEDS: Cyclobenzaprine HCl 10 MG TABLET PO (17:51)
[2021-01-27 18:36] LABS: Osmolality, Serum 266 mosm/kg (281-305)
[2021-01-27 18:36] LABS: Osmolality Urine 461 mosm/kg (373-1093)
--- NOTE | 2021-01-27 19:24 | PC.NURSE ---
Patient complaining of arm pain 20 out of 20 and wanted pain medication that he refused at 1730. Oxycodone 5 mg given per patient request.
[2021-01-27 20:16] LABS: Sodium 126 mmol/L (135-145)
[2021-01-27 20:27] VITALS: BP 118/79; PULSE 77; RESP 18; TEMP 36.8; O2SAT 98
--- NOTE | 2021-01-27 21:26 | MHC.CARE ---
Pt was seen by N in the community, pt will need another crisis eval once medically cleared.
[2021-01-27] MEDS: oxyCODONE HCl Immed Release 5 MG TABLET PO (23:22)
--- NOTE | 2021-01-27 23:52 | PM.IMHP ---
History of Present Illness Date of Service: 01/27/21 Chief Complaint: suicidal ideation This is a 35-year-old male with past medical history of depression anxiety, hypertension, GERD, presents to the hospital with complaints of suicidal ideation. Patient reports that he is very depressed, and 1 sick and his life. He denies having any plan or any at times. While in the ED awaiting evaluation by crisis team lab workup showed a sodium of 126. With a serum osmolality of 266, labs otherwise unremarkable. UA negative. That he has had low sodium chronically, because he is on antihypertensive medications. He denies having any headache, no change in vision, he has chronic left eye dryness and redness, no chest pain, no shortness of breath, no abdominal pain, nausea or vomiting, no diarrhea constipation, no urinary symptoms. And no lower extremity edema. When asked about his water intake she reports that he is drinks about 10 bottles a day because he does not drink anything else except water. Nephrology was consulted by the ED, recommended admission to medical floor Vitals on arrival to the ED unremarkable Review of Systems Review of Systems: Yes all other systems are reviewed and are negative [facility] Medical History Anxiety Depression Left sided numbness Pertinent family history: No pertinent family history Surgical History (Updated 01/28/21 @ 06:11 by Jaxon Rowley MD) History of surgery on arm Social History Household Members: Family Housing: Apartment Do you presently have visiting nurse or other home services: Yes Alcohol intake: never Patient Tobacco Use Status: Current everyday Tobacco user Tobacco use type: Cigarette Cigarette Packs Per Day: 0.2 Cigarettes Per Day: 2 Years Smoked: 5 Smoked in Last 30 Days: Yes Patient Interested in Nicotine Replacement: No Patient Given Instructions on How to Stop Smoking: Yes Date Education Initiated: 01/28/21 Second Hand Smoke Exposure: Yes Use of substances other than those prescribed or required for medical reasons: No Have you been hit, kicked, punched, or otherwise hurt by someone within the past year? If so, by whom?: No Do you feel safe in your current relationship?: Yes Is there a partner from a previous relationship who is making you feel unsafe now?: No Are you made to feel afraid or neglected: No Advance Directives: No Advance Directives Information Provided: No Do you have thoughts of harming others: None Do you have a plan to hurt others: No Plan Recently lost weight without trying: No Eating poorly because of decreased appetite: No Nutrition Risks: No Nutritional Risk Poor oral hygiene: No Meds Allergies Allergy/AdvReac Type Severity Reaction Status Date / Time amlodipine Allergy Unknown Unknown Verified 01/27/21 19:31 ibuprofen [From MOTRIN] Allergy Unknown DIFF Verified 01/27/21 19:31 URINATING Metoprolol Succinate Allergy Unknown Unknown Uncoded 01/27/21 19:31 Active Medications: Current Medications Oxycodone HCl (Oxycodone Hcl Immed Release 5 Mg Tablet) 1 mg PO Q6H PRN PRN Reason: Pain, Severe (Pain Scale 7-10) Pharmacy Consult (Consult Rx Perform Med Rec) 1 each MISCELLANE ONCE PRN PRN Reason: Consult order Home Medications Medication Instructions Recorded Confirmed Last Taken Type Lotemax 1 drp OPHTHALMIC-LEFT DAILY 01/27/21 01/27/21 1 Day Ago History ~01/26/21 clonidine HCl 0.2 mg tablet 0.4 mg PO BEDTIME 01/27/21 01/27/21 1 Day Ago History ~01/26/21 cyclobenzaprine 10 mg tablet 10 mg PO TID PRN 01/27/21 01/27/21 1 Day Ago History ~01/26/21 fenofibrate 160 mg tablet 1 tab PO DAILY 01/27/21 01/27/21 1 Day Ago History ~01/26/21 hydrochlorothiazide 25 mg tablet 1 tab PO DAILY 01/27/21 01/27/21 1 Day Ago History ~01/26/21 lisinopril 40 mg tablet 1 tab PO DAILY 01/27/21 01/27/21 1 Day Ago History ~01/26/21 lorazepam 1 mg tablet 1 tab PO 3XW PRN 01/27/21 01/27/21 1 Day Ago History ~01/26/21 omeprazole 20 mg capsule,delayed 1 cap PO BID 01/27/21 01/27/21 1 Day Ago History release ~01/26/21 oxcarbazepine 600 mg tablet 600 mg PO BID 01/27/21 01/27/21 1 Day Ago History ~01/26/21 oxycodone-acetaminophen 5 mg-325 1 - 2 tab PO Q6H PRN 01/27/21 01/27/21 1 Day Ago History mg tablet ~01/26/21 paroxetine HCl 30 mg tablet 1 tab PO BEDTIME 01/27/21 01/27/21 Unknown History simvastatin 40 mg tablet 1 tab PO BEDTIME 01/27/21 01/27/21 1 Day Ago History ~01/26/21 valacyclovir 500 mg tablet 1 tab PO BID 01/27/21 01/27/21 1 Day Ago History ~01/26/21 venlafaxine 37.5 mg 1 cap PO QAM 01/27/21 01/27/21 01/26/21 History capsule,extended release 24 hr venlafaxine 75 mg capsule,extended 75 mg PO DAILY 01/27/21 01/27/21 01/26/21 History release 24 hr ziprasidone HCl 60 mg capsule 1 cap PO BID 01/27/21 01/27/21 1 Day Ago History ~01/26/21 Physical Exam Vital Signs and Narrative: Vital Signs: Last Vital Signs Temp 98.2 F 01/27/21 20:27 Pulse 77 01/27/21 20:27 Resp 18 01/27/21 20:27 BP 118/79 01/27/21 20:27 Pulse Ox 98 01/27/21 20:27 Body Mass Index 42.3 Const: General: cooperative and no acute distress Orientation/consciousness: patient oriented x3 Eyes: Other: Conjunctiva erythema Pupils: Equal, round and reactive pupils present Resp: Effort & Inspection: normal respiratory effort Auscultation: clear to auscultation bilaterally Cardio: Rate: regular rate Rhythm: regular rhythm GI: Palpation (GI): Soft to palpation Auscultation: normal bowel sounds Skin: General skin exam: no rashes or lesions noted Neuro: General: patient oriented x3 Cranial nerves: Yes Equal, round and reactive pupils present Cognition (Neuro): normal cognition Extrem: General: Yes normal to inspection and Yes no pedal edema Results Labs CBC and Chem 7: 01/27/21 16:41 01/28/21 00:44 Labs: Laboratory Results - last 24 hr 01/27/21 01/27/21 01/27/21 16:26 16:26 16:26 MCV MCH MCHC RDW Plt Count MPV Immature Gran % (Auto) Neut % (Auto) Lymph % (Auto) [place] % (Auto) Eos % (Auto) Baso % (Auto) Lymph # (Auto) [place] # (Auto) Eos # (Auto) Baso # (Auto) Abs Immat Gran (auto) Absolute Neuts (auto) Absolute Nucleated RBC Nucleated RBC % (auto) Anion Gap Estim Creat Clear Calc Estimated GFR Random Glucose Osmolality Calcium Magnesium Total Bilirubin Direct Bilirubin AST ALT Alkaline Phosphatase Total Protein Albumin Urine Color YELLOW Urine Appearance CLEAR Urine pH 7.5 Ur Specific [place] 1.015 Urine Protein NEG Urine Glucose (UA) NEG Urine Ketones NEG Urine Blood NEG Urine Nitrite NEG Ur Leukocyte Esterase NEG Urine Osmolality Ur Random Sodium Urine Opiates Screen Not Detected Urine Fentanyl Screen Not Detected Ur Barbiturates Screen Not Detected Ur Phencyclidine Scrn Not Detected Ur Amphetamines Screen Not Detected U Benzodiazepines Scrn Not Detected Urine Cocaine Screen Not Detected U Marijuana (THC) Screen Not Detected Ethyl Alcohol COVID-19 (BILL) Negative COVID-[employer] See Note 01/27/21 01/27/21 01/27/21 16:30 16:30 16:41 MCV 86.3 MCH 31.1 MCHC 36.1 H RDW 11.9 Plt Count 361 MPV 9.5 Immature Gran % (Auto) 0.4 Neut % (Auto) 61.3 Lymph % (Auto) 28.0 [place] % (Auto) 8.7 Eos % (Auto) 1.2 Baso % (Auto) 0.4 Lymph # (Auto) 2.5 [place] # (Auto) 0.8 Eos # (Auto) 0.1 Baso # (Auto) 0.0 Abs Immat Gran (auto) 0.04 H Absolute Neuts (auto) 5.5 Absolute Nucleated RBC 0.000 Nucleated RBC % (auto) 0.0 Anion Gap Estim Creat Clear Calc Estimated GFR Random Glucose Osmolality Calcium Magnesium Total Bilirubin Direct Bilirubin AST ALT Alkaline Phosphatase Total Protein Albumin Urine Color Urine Appearance Urine pH Ur Specific [place] Urine Protein Urine Glucose (UA) Urine Ketones Urine Blood Urine Nitrite Ur Leukocyte Esterase Urine Osmolality 461 Ur Random Sodium 76.0 Urine Opiates Screen Urine Fentanyl Screen Ur Barbiturates Screen Ur Phencyclidine Scrn Ur Amphetamines Screen U Benzodiazepines Scrn Urine Cocaine Screen U Marijuana (THC) Screen Ethyl Alcohol COVID-19 (BILL) COVID-19 [employer] 01/27/21 01/27/21 01/27/21 16:41 16:41 16:41 MCV MCH MCHC RDW Plt Count MPV Immature Gran % (Auto) Neut % (Auto) Lymph % (Auto) [place] % (Auto) Eos % (Auto) Baso % (Auto) Lymph # (Auto) [place] # (Auto) Eos # (Auto) Baso # (Auto) Abs Immat Gran (auto) Absolute Neuts (auto) Absolute Nucleated RBC Nucleated RBC % (auto) Anion Gap 14 Estim Creat Clear Calc 151.8 Estimated GFR > 60 Random Glucose 127 H Osmolality 266 L Calcium 9.5 Magnesium 1.9 Total Bilirubin 0.4 Direct Bilirubin 0.2 AST 16 ALT 16 Alkaline Phosphatase 71 Total Protein 7.8 Albumin 5.1 H Urine Color Urine Appearance Urine pH Ur Specific [place] Urine Protein Urine Glucose (UA) Urine Ketones Urine Blood Urine Nitrite Ur Leukocyte Esterase Urine Osmolality Ur Random Sodium Urine Opiates Screen Urine Fentanyl Screen Ur Barbiturates Screen Ur Phencyclidine Scrn Ur Amphetamines Screen U Benzodiazepines Scrn Urine Cocaine Screen U Marijuana (THC) Screen Ethyl Alcohol < 10 COVID-19 (BILL) COVID-19 Clin Com Assessment and Plan (1) Hyponatremia: Status: Acute (2) Suicidal ideation: Status: Acute 35-year-old male with past medical history of hypertension depression and anxiety presents to hospital with suicidal ideation found to have hyponatremia # hyponatremia - most likely multifactorial secondary to polydipsia, as well as home psych meds - has low plasma osmolality - will obtain urine osmolality and urine creatinine - consult Nephrology - follow BMP - limit liquid intake to 1500 # suicidal ideation - crisis team consulted - bedside sitter # hypertension - elevated - will hold his antihypertensives including lisinopril and hydrochlorothiazide in the setting of hyponatremia - consult Nephrology in regards to antihypertensives DVT prophylaxis: [employer] Quality Stroke Does the patient have a stroke diagnosis?: No VTE Prior VTE?: No VTE Risk Level:: Medical - moderate - high VTE Device Contraindication: Treatment Not Indicated VTE Drug Contraindication: N/A - Med Ordered
[2021-01-28 00:12] VITALS: BP 127/74; PULSE 71; TEMP 35.8
[2021-01-28 01:37] LABS: Anion Gap 12 (12-20); Blood Urea Nitrogen 7 mg/dL (9-16); Calcium 9.5 mg/dL (8.4-10.2); Carbon Dioxide 24 mmol/L (22-29); Chloride 95 mmol/L (96-108); Creatinine Clr Calc Pharmacy 163.1; Estimated Glomerular Filt Rate > 60; Glucose Random 115 mg/dL (60-115); Potassium 4.2 mmol/L (3.3-5.1); Sodium 127 mmol/L (135-145)
[2021-01-28] MEDS: Zolpidem Tartrate 5 MG TABLET PO (01:50)
[2021-01-28] MEDS: 0.9 % Sodium Chloride Flush 3 ML SYRINGE IVFLUSH ×2 (02:30→11:34)
[2021-01-28] MEDS: Cyclobenzaprine HCl 10 MG TABLET PO (02:40)
[2021-01-28 03:39] VITALS: BP 127/74; PULSE 71
[2021-01-28] MEDS: cloNIDine HCL 0.2 MG TABLET 0.4 MG PO (03:39)
[2021-01-28] MEDS: PARoxetine HCL 10 MG TABLET 30 MG PO (03:40)
[2021-01-28] MEDS: Ziprasidone 60 MG CAPSULE PO ×2 (03:40→08:13)
[2021-01-28] MEDS: OXcarbazepine 300 MG TABLET 600 MG PO ×2 (03:41→08:13)
[2021-01-28] MEDS: Omeprazole 20 MG CAPSULE.DR PO ×3 (03:41→16:05)
[2021-01-28] MEDS: Atorvastatin Calcium 20 MG TABLET PO (03:41)
[2021-01-28] MEDS: Enoxaparin Sodium 40 MG/0.4 ML SYRINGE SUBCUT (03:41)
[2021-01-28 04:00] VITALS: BP 152/93; PULSE 79; RESP 18; TEMP 36.8; O2SAT 97
[2021-01-28] MEDS: Acetaminophen 325 MG TABLET 650 MG PO (05:04)
[2021-01-28] MEDS: oxyCODONE HCl Immed Release 5 MG TABLET PO ×2 (05:04→11:32)
[2021-01-28 06:06] LABS: MANUAL DIFF FLAG NO
[2021-01-28 06:28] LABS: Basophils Percent Auto 0.4 % (0-2); Eosinophils Absolute Auto 0.1 X10*3/uL (0.0-0.4); Eosinophils Percent Auto 0.6 % (0-4); Hematocrit 36.5 % (42-52); Hemoglobin 13.1 g/dl (14.0-18.0); Imm Gran Abs Auto 0.05 X10*3/uL (0.00-0.03); Imm Gran Pct Auto 0.5 % (0.0-0.4); Lymphocytes Absolute Auto 1.5 X10*3/uL (1.2-4.9); Lymphocytes Percent Auto 14.8 % (20-40); Mean Corpuscular HGB Conc 35.9 g/dl (31.0-36.0); Mean Corpuscular Hemoglobin 30.9 pg (27.0-33.0); Mean Corpuscular Volume 86.1 fL (80-98); Mean Platelet Volume 9.6 fL (9.4-12.4); Monocytes Absolute Auto 0.9 X10*3/uL (0.1-1.2); Monocytes Percent Auto 8.1 % (2-11); Neutrophils Absolute Auto 7.9 X10*3/uL (2.0-8.3); Neutrophils Percent Auto 75.6 % (45-73); Platelet Count 320 X10*3/uL (160-400); Red Blood Count 4.24 X10*6/uL (4.60-5.80); Red Cell Distribution Width 11.9 % (11.0-16.0); White Blood Count 10.4 X10*3/uL (4.8-10.8)
[2021-01-28 06:58] LABS: Anion Gap 11 (12-20); Blood Urea Nitrogen 7 mg/dL (9-16); Calcium 9.5 mg/dL (8.4-10.2); Carbon Dioxide 24 mmol/L (22-29); Chloride 97 mmol/L (96-108); Creatinine Clr Calc Pharmacy 171.6; Estimated Glomerular Filt Rate > 60; Glucose Random 115 mg/dL (60-115); Potassium 4.3 mmol/L (3.3-5.1); Sodium 128 mmol/L (135-145)
[2021-01-28 08:00] VITALS: BP 144/78; PULSE 81; RESP 18; TEMP 36.8; O2SAT 98
[2021-01-28] MEDS: Venlafaxine HCl ER 75 MG CAP.ER.24H PO (08:13)
[2021-01-28] MEDS: LORazepam 1 MG TABLET PO (09:53)
[2021-01-28] MEDS: Fenofibrate 160 MG TABLET PO (09:54)
[2021-01-28] MEDS: Venlafaxine HCl ER 37.5 MG CAP.ER.24H PO (09:54)
--- NOTE | 2021-01-28 11:05 | HO.PM.IMPN ---
Subjective Subjective Date of Service: 01/28/21 Interval History: Patient being followed for suicidal ideation and hyponatremia, he denies nausea , vomiting, abdominal pain , no headache, no dizziness, no other acute issues overnight. Review of Systems General no headache, no dizziness no fever chills. CVS no chest pain, no palpitation. Respiratory no cough, no sob. Gastrointestinal no nausea, no vomiting, no abdominal pain Physical Exam Vital Signs: Vital Signs: Last Vital Signs Temp 98.2 F 01/28/21 08:00 Pulse 81 01/28/21 08:00 Resp 18 01/28/21 08:00 BP 144/78 H 01/28/21 08:00 Pulse Ox 98 01/28/21 08:00 Body Mass Index 42.3 General alert oriented x3,no acute distress. Neck supple, no JVD. CVS regular rate rhythm, Respiratory lungs clear to auscultation, no respiratory distress, no wheeze, no rhonchi. Gastrointestinal abdomen soft, nontender, bowel sounds audible, no guarding , no rigidity. Extremities no edema. Neuro nonfocal , speech clear. Skin no rash Objective Data Active Medications Acetaminophen (Acetaminophen 325 Mg Tablet) 650 mg PO Q6H PRN PRN Reason: Pain, Mild (Pain Scale 1-3) Last Admin: 01/28/21 05:04 Dose: 650 mg Documented by: FLORIDALMA Atorvastatin Calcium (Atorvastatin Calcium 20 Mg Tablet) 20 mg PO BEDTIME JACK Last Admin: 01/28/21 03:41 Dose: 20 mg Documented by: FLORIDALMA Clonidine HCl (Clonidine Hcl 0.2 Mg Tablet) 0.4 mg PO BEDTIME JACK; Protocol Last Admin: 01/28/21 03:39 Dose: 0.4 mg Documented by: FLORIDALMA Cyclobenzaprine HCl (Cyclobenzaprine Hcl 10 Mg Tablet) 10 mg PO TID PRN PRN Reason: Spasms Last Admin: 01/28/21 02:40 Dose: 10 mg Documented by: FLORIDALMA Docusate Sodium (Docusate Sodium 100 Mg Capsule) 100 mg PO DAILY PRN PRN Reason: Constipation Enoxaparin Sodium (Enoxaparin Sodium 40 Mg/0.4 Ml Syringe) 40 mg SUBCUT Q24H JACK Last Admin: 01/28/21 03:41 Dose: 40 mg Documented by: FLORIDALMA Fenofibrate (Fenofibrate 160 Mg Tablet) 160 mg PO DAILY [facility] Last Admin: 01/28/21 09:54 Dose: 160 mg Documented by: TERI Lorazepam (Lorazepam 1 Mg Tablet) 1 mg PO Q48H PRN PRN Reason: anxiety Last Admin: 01/28/21 09:53 Dose: 1 mg Documented by: TERI Omeprazole (Omeprazole 20 Mg Capsule.Dr) 20 mg PO BIDAC [facility] Last Admin: 01/28/21 08:13 Dose: 20 mg Documented by: TERI Ondansetron HCl (Ondansetron Hcl 4 Mg/2 Ml Vial) 4 mg IVPUSH Q8H PRN PRN Reason: Nausea and Vomiting Oxcarbazepine (Oxcarbazepine 300 Mg Tablet) 600 mg PO BID [facility] Last Admin: 01/28/21 08:13 Dose: 600 mg Documented by: TERI Oxycodone HCl (Oxycodone Hcl Immed Release 5 Mg Tablet) 5 mg PO Q6H PRN PRN Reason: Pain, Severe (Pain Scale 7-10) Last Admin: 01/28/21 05:04 Dose: 5 mg Documented by: FLORIDALMA Paroxetine HCl (Paroxetine Hcl 10 Mg Tablet) 30 mg PO BEDTIME [facility] Last Admin: 01/28/21 03:40 Dose: 30 mg Documented by: FLORIDALMA Pharmacy Consult (Consult Rx Perform Med Rec) 1 each MISCELLANE ONCE PRN PRN Reason: Consult order Prednisolone Acetate (Prednisolone Acetate 1 % Oph Susp 5 Ml Drpbtl) 1 drop EYE-LEFT DAILY [facility] Sodium Chloride (0.9 % Sodium Chloride Flush 3 Ml Syringe) 3 ml IVFLUSH QSHIFT [facility] Last Admin: 01/28/21 02:30 Dose: 3 ml Documented by: FLORIDALMA Valacyclovir HCl (Valacycyclovir Hcl 500 Mg Tablet) 500 mg PO BID [facility] Last Admin: 01/28/21 09:54 Dose: 500 mg Documented by: TERI Venlafaxine HCl (Venlafaxine Hcl Er 37.5 Mg Cap.Er.24h) 37.5 mg PO DAILY [facility] Last Admin: 01/28/21 09:54 Dose: 37.5 mg Documented by: TERI Venlafaxine HCl (Venlafaxine Hcl Er 75 Mg Cap.Er.24h) 75 mg PO DAILY [facility] Last Admin: 01/28/21 08:13 Dose: 75 mg Documented by: TERI Ziprasidone (Ziprasidone 60 Mg Capsule) 60 mg PO BID [facility] Last Admin: 01/28/21 08:13 Dose: 60 mg Documented by: TERI Labs CBC & Chem 7: 01/28/21 05:55 01/28/21 05:55 Labs: Laboratory Results - last 24 hr 01/27/21 01/27/21 01/27/21 16:26 16:26 16:26 MCV MCH MCHC RDW Plt Count MPV Immature Gran % (Auto) Neut % (Auto) Lymph % (Auto) [place] % (Auto) Eos % (Auto) Baso % (Auto) Lymph # (Auto) [place] # (Auto) Eos # (Auto) Baso # (Auto) Abs Immat Gran (auto) Absolute Neuts (auto) Absolute Nucleated RBC Nucleated RBC % (auto) Anion Gap Estim Creat Clear Calc Estimated GFR Random Glucose Osmolality Calcium Magnesium Total Bilirubin Direct Bilirubin AST ALT Alkaline Phosphatase Total Protein Albumin Urine Color YELLOW Urine Appearance CLEAR Urine pH 7.5 Ur Specific [place] 1.015 Urine Protein NEG Urine Glucose (UA) NEG Urine Ketones NEG Urine Blood NEG Urine Nitrite NEG Ur Leukocyte Esterase NEG Urine Osmolality Ur Random Sodium Urine Opiates Screen Not Detected Urine Fentanyl Screen Not Detected Ur Barbiturates Screen Not Detected Ur Phencyclidine Scrn Not Detected Ur Amphetamines Screen Not Detected U Benzodiazepines Scrn Not Detected Urine Cocaine Screen Not Detected U Marijuana (THC) Screen Not Detected Ethyl Alcohol COVID-19 (BILL) Negative COVID-19 Clin Com See Note 01/27/21 01/27/21 01/27/21 16:30 16:30 16:41 MCV 86.3 MCH 31.1 MCHC 36.1 H RDW 11.9 Plt Count 361 MPV 9.5 Immature Gran % (Auto) 0.4 Neut % (Auto) 61.3 Lymph % (Auto) 28.0 [place] % (Auto) 8.7 Eos % (Auto) 1.2 Baso % (Auto) 0.4 Lymph # (Auto) 2.5 [place] # (Auto) 0.8 Eos # (Auto) 0.1 Baso # (Auto) 0.0 Abs Immat Gran (auto) 0.04 H Absolute Neuts (auto) 5.5 Absolute Nucleated RBC 0.000 Nucleated RBC % (auto) 0.0 Anion Gap Estim Creat Clear Calc Estimated GFR Random Glucose Osmolality Calcium Magnesium Total Bilirubin Direct Bilirubin AST ALT Alkaline Phosphatase Total Protein Albumin Urine Color Urine Appearance Urine pH Ur Specific [place] Urine Protein Urine Glucose (UA) Urine Ketones Urine Blood Urine Nitrite Ur Leukocyte Esterase Urine Osmolality 461 Ur Random Sodium 76.0 Urine Opiates Screen Urine Fentanyl Screen Ur Barbiturates Screen Ur Phencyclidine Scrn Ur Amphetamines Screen U Benzodiazepines Scrn Urine Cocaine Screen U Marijuana (THC) Screen Ethyl Alcohol COVID-19 (BILL) COVID-19 [employer] Com 01/27/21 01/27/21 01/27/21 16:41 16:41 16:41 MCV MCH MCHC RDW Plt Count MPV Immature Gran % (Auto) Neut % (Auto) Lymph % (Auto) [place] % (Auto) Eos % (Auto) Baso % (Auto) Lymph # (Auto) [place] # (Auto) Eos # (Auto) Baso # (Auto) Abs Immat Gran (auto) Absolute Neuts (auto) Absolute Nucleated RBC Nucleated RBC % (auto) Anion Gap 14 Estim Creat Clear Calc 151.8 Estimated GFR > 60 Random Glucose 127 H Osmolality 266 L Calcium 9.5 Magnesium 1.9 Total Bilirubin 0.4 Direct Bilirubin 0.2 AST 16 ALT 16 Alkaline Phosphatase 71 Total Protein 7.8 Albumin 5.1 H Urine Color Urine Appearance Urine pH Ur Specific [place] Urine Protein Urine Glucose (UA) Urine Ketones Urine Blood Urine Nitrite Ur Leukocyte Esterase Urine Osmolality Ur Random Sodium Urine Opiates Screen Urine Fentanyl Screen Ur Barbiturates Screen Ur Phencyclidine Scrn Ur Amphetamines Screen U Benzodiazepines Scrn Urine Cocaine Screen U Marijuana (THC) Screen Ethyl Alcohol < 10 COVID-19 (BILL) COVID-19 [employer] Com 01/28/21 01/28/21 01/28/21 00:44 05:55 05:55 MCV 86.1 MCH 30.9 MCHC 35.9 RDW 11.9 Plt Count 320 MPV 9.6 Immature Gran % (Auto) 0.5 H Neut % (Auto) 75.6 H Lymph % (Auto) 14.8 L [place] % (Auto) 8.1 Eos % (Auto) 0.6 Baso % (Auto) 0.4 Lymph # (Auto) 1.5 [place] # (Auto) 0.9 Eos # (Auto) 0.1 Baso # (Auto) 0.0 Abs Immat Gran (auto) 0.05 H Absolute Neuts (auto) 7.9 Absolute Nucleated RBC 0.000 Nucleated RBC % (auto) 0.0 Anion Gap 12 11 L Estim Creat Clear Calc 163.1 171.6 Estimated GFR > 60 > 60 Random Glucose 115 115 Osmolality Calcium 9.5 9.5 Magnesium Total Bilirubin Direct Bilirubin AST ALT Alkaline Phosphatase Total Protein Albumin Urine Color Urine Appearance Urine pH Ur Specific [place] Urine Protein Urine Glucose (UA) Urine Ketones Urine Blood Urine Nitrite Ur Leukocyte Esterase Urine Osmolality Ur Random Sodium Urine Opiates Screen Urine Fentanyl Screen Ur Barbiturates Screen Ur Phencyclidine Scrn Ur Amphetamines Screen U Benzodiazepines Scrn Urine Cocaine Screen U Marijuana (THC) Screen Ethyl Alcohol COVID-19 (BILL) COVID-19 Clin Com Assessment and Plan (1) Suicidal ideation: Status: Acute (2) Hyponatremia: Status: Acute (3) Depression: Status: Acute Assessment and Plan: 35-year-old male with past medical history of hypertension depression and anxiety presents to hospital with suicidal ideation found to have hyponatremia # hyponatremia - as per patient he drinks lot of fluids, takes low-salt diet due to concern for high blood pressure Hyponatremia seems multifactorial due to hydrochlorothiazide, low-salt intake and excessive water intake Will hold hydrochlorothiazide, restrict fluids, recommended patient to take salt for flavor and taste Sodium improved from 126-128 Case discussed with Nephrology agrees with above treatment, recommend labs as out patient in 1 week # suicidal ideation - will consult care team, continue bedside sitter and obtain BHN consult since patient is medically cleared # hypertension Will resume lisinopril and hold hydrochlorothiazide and follow blood pressure closely if noted to have elevated blood pressure will add norvasc # history of anxiety/ depression continue home medication # hyperlipidemia continue statins and lofibra. DVT prophylaxis: [employer] Quality Stroke Does the patient have a stroke diagnosis?: No VTE Prior VTE?: No VTE Risk Level:: Medical - moderate - high VTE Device Contraindication: Treatment Not Indicated VTE Drug Contraindication: N/A - Med Ordered
--- NOTE | 2021-01-28 11:24 | P.CONNP_ITS ---
History of Present Illness Reason for Consult Consult date: 01/28/21 Reason for consult: Hyponatremia Requesting physician: Marcia Salamanca Chief Complaint Chief complaint: Hyponatremia, suicidal ideation History of Present Illness Narrative: 35 yr old man with psychiatric issues and HTN.He was on Lisinopril and HCT and also takes Paroxetene and Oxcarbazene. Admitted with suicidal ideation. pNa was 126 and now up to 128 after stopping HCTZ He admits to drinking plenty of water Review of Systems Constitutional: Denies anorexia, Denies headache(s) and Denies weakness Denies dysphagia and Denies headache(s) Cardiovascular: Denies chest pain and Denies dyspnea Respiratory: Denies cough and Denies dyspnea Gastrointestinal: Denies constipation, Denies dysphagia, Denies diarrhea and Denies nausea Genitourinary: Denies difficulty urinating Denies headache(s) and Denies weakness PMFSH Past Medical History Medical History Anxiety Depression Left sided numbness Surgical History Surgical History (Updated 01/28/21 @ 06:11 by Jaxon Rowley MD) History of surgery on arm Social History Social History Household Members: Family Housing: Apartment Do you presently have visiting nurse or other home services: Yes Alcohol intake: never Patient Tobacco Use Status: Current everyday Tobacco user Tobacco use type: Cigarette Cigarette Packs Per Day: 0.2 Cigarettes Per Day: 2 Years Smoked: 5 Smoked in Last 30 Days: Yes Patient Interested in Nicotine Replacement: No Patient Given Instructions on How to Stop Smoking: Yes Date Education Initiated: 01/28/21 Second Hand Smoke Exposure: Yes Use of substances other than those prescribed or required for medical reasons: No Currently Displaying Signs/Symptoms of Drug Intoxication Withdrawal: No Have you been hit, kicked, punched, or otherwise hurt by someone within the past year? If so, by whom?: No Do you feel safe in your current relationship?: Yes Is there a partner from a previous relationship who is making you feel unsafe now?: No Are you made to feel afraid or neglected: No Advance Directives: No Advance Directives Information Provided: No Do you have thoughts of harming others: None Do you have a plan to hurt others: No Plan Recently lost weight without trying: No Eating poorly because of decreased appetite: No Nutrition Risks: No Nutritional Risk Poor oral hygiene: No Meds Allergies Allergy/AdvReac Type Severity Reaction Status Date / Time amlodipine Allergy Unknown Unknown Verified 01/27/21 19:31 ibuprofen [From MOTRIN] Allergy Unknown DIFF Verified 01/27/21 19:31 URINATING Metoprolol Succinate Allergy Unknown Unknown Uncoded 01/27/21 19:31 Active Medications: Current Medications Acetaminophen (Acetaminophen 325 Mg Tablet) 650 mg PO Q6H PRN PRN Reason: Pain, Mild (Pain Scale 1-3) Last Admin: 01/28/21 05:04 Dose: 650 mg Documented by: Atorvastatin Calcium (Atorvastatin Calcium 20 Mg Tablet) 20 mg PO BEDTIME JACK Last Admin: 01/28/21 03:41 Dose: 20 mg Documented by: Clonidine HCl (Clonidine Hcl 0.2 Mg Tablet) 0.4 mg PO BEDTIME JACK; Protocol Last Admin: 01/28/21 03:39 Dose: 0.4 mg Documented by: Cyclobenzaprine HCl (Cyclobenzaprine Hcl 10 Mg Tablet) 10 mg PO TID PRN PRN Reason: Spasms Last Admin: 01/28/21 02:40 Dose: 10 mg Documented by: Docusate Sodium (Docusate Sodium 100 Mg Capsule) 100 mg PO DAILY PRN PRN Reason: Constipation Enoxaparin Sodium (Enoxaparin Sodium 40 Mg/0.4 Ml Syringe) 40 mg SUBCUT Q24H JACK Last Admin: 01/28/21 03:41 Dose: 40 mg Documented by: Fenofibrate (Fenofibrate 160 Mg Tablet) 160 mg PO DAILY JACK Last Admin: 01/28/21 09:54 Dose: 160 mg Documented by: Lorazepam (Lorazepam 1 Mg Tablet) 1 mg PO Q48H PRN PRN Reason: anxiety Last Admin: 01/28/21 09:53 Dose: 1 mg Documented by: Omeprazole (Omeprazole 20 Mg Capsule.Dr) 20 mg PO BIDAC JACK Last Admin: 01/28/21 08:13 Dose: 20 mg Documented by: Ondansetron HCl (Ondansetron Hcl 4 Mg/2 Ml Vial) 4 mg IVPUSH Q8H PRN PRN Reason: Nausea and Vomiting Oxcarbazepine (Oxcarbazepine 300 Mg Tablet) 600 mg PO BID [facility] Last Admin: 01/28/21 08:13 Dose: 600 mg Documented by: Oxycodone HCl (Oxycodone Hcl Immed Release 5 Mg Tablet) 5 mg PO Q6H PRN PRN Reason: Pain, Severe (Pain Scale 7-10) Last Admin: 01/28/21 05:04 Dose: 5 mg Documented by: Paroxetine HCl (Paroxetine Hcl 10 Mg Tablet) 30 mg PO BEDTIME [facility] Last Admin: 01/28/21 03:40 Dose: 30 mg Documented by: Pharmacy Consult (Consult Rx Perform Med Rec) 1 each MISCELLANE ONCE PRN PRN Reason: Consult order Prednisolone Acetate (Prednisolone Acetate 1 % Oph Susp 5 Ml Drpbtl) 1 drop EYE-LEFT DAILY [facility] Sodium Chloride (0.9 % Sodium Chloride Flush 3 Ml Syringe) 3 ml IVFLUSH QSHIFT [facility] Last Admin: 01/28/21 02:30 Dose: 3 ml Documented by: Valacyclovir HCl (Valacycyclovir Hcl 500 Mg Tablet) 500 mg PO BID [facility] Last Admin: 01/28/21 09:54 Dose: 500 mg Documented by: Venlafaxine HCl (Venlafaxine Hcl Er 37.5 Mg Cap.Er.24h) 37.5 mg PO DAILY [facility] Last Admin: 01/28/21 09:54 Dose: 37.5 mg Documented by: Venlafaxine HCl (Venlafaxine Hcl Er 75 Mg Cap.Er.24h) 75 mg PO DAILY [facility] Last Admin: 01/28/21 08:13 Dose: 75 mg Documented by: Ziprasidone (Ziprasidone 60 Mg Capsule) 60 mg PO BID [facility] Last Admin: 01/28/21 08:13 Dose: 60 mg Documented by: Home Medications Medication Instructions Recorded Confirmed Last Taken Type Lotemax 1 drp OPHTHALMIC-LEFT DAILY 01/27/21 01/27/21 1 Day Ago History ~01/26/21 clonidine HCl 0.2 mg tablet 0.4 mg PO BEDTIME 01/27/21 01/27/21 1 Day Ago History ~01/26/21 cyclobenzaprine 10 mg tablet 10 mg PO TID PRN 01/27/21 01/27/21 1 Day Ago History ~01/26/21 fenofibrate 160 mg tablet 1 tab PO DAILY 01/27/21 01/27/21 1 Day Ago History ~01/26/21 hydrochlorothiazide 25 mg tablet 1 tab PO DAILY 01/27/21 01/27/21 1 Day Ago History ~01/26/21 lisinopril 40 mg tablet 1 tab PO DAILY 01/27/21 01/27/21 1 Day Ago History ~01/26/21 lorazepam 1 mg tablet 1 tab PO 3XW PRN 01/27/21 01/27/21 1 Day Ago History ~01/26/21 omeprazole 20 mg capsule,delayed 1 cap PO BID 01/27/21 01/27/21 1 Day Ago History release ~01/26/21 oxcarbazepine 600 mg tablet 600 mg PO BID 01/27/21 01/27/21 1 Day Ago History ~01/26/21 oxycodone-acetaminophen 5 mg-325 1 - 2 tab PO Q6H PRN 01/27/21 01/27/21 1 Day Ago History mg tablet ~01/26/21 paroxetine HCl 30 mg tablet 1 tab PO BEDTIME 01/27/21 01/27/21 Unknown History simvastatin 40 mg tablet 1 tab PO BEDTIME 01/27/21 01/27/21 1 Day Ago History ~01/26/21 valacyclovir 500 mg tablet 1 tab PO BID 01/27/21 01/27/21 1 Day Ago History ~01/26/21 venlafaxine 37.5 mg 1 cap PO QAM 01/27/21 01/27/21 01/26/21 History capsule,extended release 24 hr venlafaxine 75 mg capsule,extended 75 mg PO DAILY 01/27/21 01/27/21 01/26/21 History release 24 hr ziprasidone HCl 60 mg capsule 1 cap PO BID 01/27/21 01/27/21 1 Day Ago History ~01/26/21 Physical Exam Vital Signs: Last Vital Signs Temp 98.2 F 01/28/21 08:00 Pulse 81 01/28/21 08:00 Resp 18 01/28/21 08:00 BP 144/78 H 01/28/21 08:00 Pulse Ox 98 01/28/21 08:00 Body Mass Index 42.3 Const General: cooperative; No anxious Orientation/consciousness: oriented to person Eyes Eyelids: Yes eyelids normal EOM: No Nystagmus present Neck Neck: Yes no lymphadenopathy and Yes supple Resp Auscultation: clear to auscultation bilaterally and no rales Cardio Jugular venous distension: no JVD Palpation: no palpable S3 Heart sounds: no click and no rubs GI Inspection: Yes normal to inspection Palpation (GI): no masses Auscultation: normal bowel sounds Skin General skin exam: no rashes or lesions noted Neuro General: oriented to person Cranial nerves: No Nystagmus present Motor exam (neuro): No Asterixis during motor activity present Extrem Right upper extremity: full ROM; No no edema Vital Signs: Last Vital Signs Temp 98.2 F 01/28/21 08:00 Pulse 81 01/28/21 08:00 Resp 18 01/28/21 08:00 BP 144/78 H 01/28/21 08:00 Pulse Ox 98 01/28/21 08:00 Body Mass Index 42.3 Tobacco/Smoking Status: Tobacco use Status Patient Tobacco Use Status Current everyday Tobacco 01/28/21 02:17 Tobacco use type Cigarette 01/28/21 02:17 Const General: cooperative; No anxious Orientation/consciousness: oriented to person Eyes Eyelids: Yes eyelids normal EOM: No Nystagmus present Neck Neck: Yes no lymphadenopathy and Yes supple Resp Auscultation: clear to auscultation bilaterally and no rales Cardio Jugular venous distension: no JVD Palpation: no palpable S3 Heart sounds: no click and no rubs GI Inspection: Yes normal to inspection Palpation (GI): no masses Auscultation: normal bowel sounds Skin General skin exam: no rashes or lesions noted Neuro General: oriented to person Cranial nerves: No Nystagmus present Motor exam (neuro): No Asterixis during motor activity present Extrem Right upper extremity: full ROM; No no edema Results Lab Results Result Diagrams: 01/28/21 05:55 01/28/21 05:55 Lab results: Chemistry 01/27/21 01/27/21 01/28/21 16:41 20:00 00:44 Sodium 126 L 126 L 127 L Potassium 3.9 4.2 Carbon Dioxide 23 24 BUN 8 L 7 L Creatinine 0.87 0.81 Calcium 9.5 9.5 01/28/21 05:55 Sodium 128 L Potassium 4.3 Carbon Dioxide 24 BUN 7 L Creatinine 0.77 Calcium 9.5 Hematology 01/27/21 01/28/21 16:41 05:55 WBC 9.0 10.4 Hgb 14.1 13.1 L Plt Count 361 320 Urinalysis 01/27/21 16:26 Urine Color YELLOW Urine Appearance CLEAR Urine pH 7.5 Ur Specific [place] 1.015 Urine Protein NEG Urine Glucose (UA) NEG Urine Ketones NEG Urine Blood NEG Urine Nitrite NEG Ur Leukocyte Esterase NEG Urine Studies 01/27/21 16:30 Urine Osmolality 461 Assessment and Plan (1) Hyponatremia: Status: Acute Hypotonic hyponatremia Asymptomatic Most likely due to decreased free water clearance due to medications including HCTZ/Lisinpril/SSRI/Oxcarbazene Suggest DC HCTZ Change Lisinopril to Diovan Restrict PO water intake to 1.2L per 24 hrs Goal pNa > 130 Check pNa q 12 hr for now No need for 3% NaCl Shall follow as needed Thanks Procedures Date of Service Date of Service: 01/28/21
[2021-01-28 11:48] VITALS: BP 126/87; PULSE 84; RESP 18; TEMP 36.8; O2SAT 98
[2021-01-28] MEDS: prednisoLONE Acetate 1 % Oph Susp 5 ML DRPBTL 1 DROP EYE-LEFT (13:45)
[2021-01-28 14:10] LABS: Osmolality Urine 142 mosm/kg (373-1093)
[2021-01-28 14:12] LABS: Creatinine Urine 33.99 mg/dL
--- NOTE | 2021-01-28 15:01 | PM.DS ---
DS: Providers Provider Date of Service: 01/28/21 Date of admission: 01/27/21 23:49 Primary care physician: [facility] Consults: 01/27/21 17:02 Consult to Crisis Stat Reason for consultation: SI with plan 01/28/21 01:55 Consult to Nephrology Routine Consulting Provider: [facility] Reason for consultation: Hyponatremia Has provider been notified: Yes 01/28/21 11:03 Consult to Care Team Routine Comment: Reason for consultation: suicidal ideation 01/28/21 11:17 Consult to Crisis Stat Reason for consultation: suicidal ideation medically cleared Has provider been notified: No DS: Diagnosis Discharge Diagnosis (1) Hyponatremia: Status: Acute DS: Summary Hospital Course Hospital Course: History of presenting illness Chief Complaint: suicidal ideation This is a 35-year-old male with past medical history of depression anxiety, hypertension, GERD, presents to the hospital with complaints of suicidal ideation.? Patient reports that he is very depressed, and 1 sick and his life.? He denies having any plan or any at times.? While in the ED awaiting evaluation by crisis team lab workup showed a sodium of 126.? With a serum osmolality of 266, labs otherwise unremarkable.? UA negative. That he has had low sodium chronically, because he is on antihypertensive medications.? He denies having any headache, no change in vision, he has chronic left eye dryness and redness, no chest pain, no shortness of breath, no abdominal pain, nausea or vomiting, no diarrhea constipation, no urinary symptoms.? And no lower extremity edema. When asked about his water intake she reports that he is drinks about 10 bottles a day because he does not drink anything else except water. Nephrology was consulted by the ED, recommended admission to medical floor Vitals on arrival to the ED unremarkable Hospital course 35-year-old male with past medical history of hypertension depression and anxiety presents to hospital with suicidal ideation found to have hyponatremia # hyponatremia as per patient he drinks lot of fluids, takes low-salt diet due to concern for high blood pressure,? Hyponatremia seems multifactorial due to hydrochlorothiazide, low-salt intake and excessive water intake ? Will dc hydrochlorothiazide, restrict fluids, recommended patient to take salt for flavor and taste,? Sodium improved from 126-128 ? Case discussed with Nephrology agrees with above treatment, recommend labs BMP in 1 week # suicidal ideation seen by [facility]AL[facility] is being transferred to # hypertension noted to have stable blood pressure will DC hydrochlorothiazide and lower dose of lisinopril from 40 mg daily to 10 mg daily. Recommended to follow blood pressure closely ?? # history of anxiety/ depression continue home medication # hyperlipidemia continue statins and lofibra. Patient has been placed on Lipitor since Zocor is non formulary. Time Spent with Patient Time attestation: Total time spent providing and/or coordinating discharge services: Discharge coordination time: Greater than 30 minutes Quality: Stroke Does the patient have a stroke diagnosis?: No Physical Exam Vital Signs: Vital Signs: Last Vital Signs Temp 98.2 F 01/28/21 11:48 Pulse 84 01/28/21 11:48 Resp 18 01/28/21 11:48 BP 126/87 01/28/21 11:48 Pulse Ox 98 01/28/21 11:48 Body Mass Index 42.3 ?General alert oriented x3,no acute distress.? Neck supple, no JVD. CVS? regular rate rhythm, Respiratory lungs clear to auscultation, no respiratory distress, no wheeze, no rhonchi. Gastrointestinal abdomen soft, nontender, bowel sounds audible, no guarding , no rigidity. Extremities no? edema. Neuro nonfocal , speech clear. Skin no rash DS: Data Data Completed and Pending Labs on day of discharge: Laboratory Results - last 24 hr 01/27/21 01/27/21 01/27/21 16:26 16:26 16:26 WBC RBC Hgb Hct MCV MCH MCHC RDW Plt Count MPV Immature Gran % (Auto) Neut % (Auto) Lymph % (Auto) [place] % (Auto) Eos % (Auto) Baso % (Auto) Lymph # (Auto) [place] # (Auto) Eos # (Auto) Baso # (Auto) Abs Immat Gran (auto) Absolute Neuts (auto) Absolute Nucleated RBC Nucleated RBC % (auto) Sodium Potassium Chloride Carbon Dioxide Anion Gap BUN Creatinine Estim Creat Clear Calc Estimated GFR Random Glucose Osmolality Calcium Magnesium Total Bilirubin Direct Bilirubin AST ALT Alkaline Phosphatase Total Protein Albumin Urine Color YELLOW Urine Appearance CLEAR Urine pH 7.5 Ur Specific [place] 1.015 Urine Protein NEG Urine Glucose (UA) NEG Urine Ketones NEG Urine Blood NEG Urine Nitrite NEG Ur Leukocyte Esterase NEG Urine Osmolality Ur Random Sodium Urine Creatinine Urine Opiates Screen Not Detected Urine Fentanyl Screen Not Detected Ur Barbiturates Screen Not Detected Ur Phencyclidine Scrn Not Detected Ur Amphetamines Screen Not Detected U Benzodiazepines Scrn Not Detected Urine Cocaine Screen Not Detected U Marijuana (THC) Screen Not Detected Ethyl Alcohol COVID-19 (BILL) Negative COVID-19 Clin Com See Note 01/27/21 01/27/21 01/27/21 16:30 16:30 16:41 WBC 9.0 RBC 4.53 L Hgb 14.1 Hct 39.1 L MCV 86.3 MCH 31.1 MCHC 36.1 H RDW 11.9 Plt Count 361 MPV 9.5 Immature Gran % (Auto) 0.4 Neut % (Auto) 61.3 Lymph % (Auto) 28.0 [place] % (Auto) 8.7 Eos % (Auto) 1.2 Baso % (Auto) 0.4 Lymph # (Auto) 2.5 [place] # (Auto) 0.8 Eos # (Auto) 0.1 Baso # (Auto) 0.0 Abs Immat Gran (auto) 0.04 H Absolute Neuts (auto) 5.5 Absolute Nucleated RBC 0.000 Nucleated RBC % (auto) 0.0 Sodium Potassium Chloride Carbon Dioxide Anion Gap BUN Creatinine Estim Creat Clear Calc Estimated GFR Random Glucose Osmolality Calcium Magnesium Total Bilirubin Direct Bilirubin AST ALT Alkaline Phosphatase Total Protein Albumin Urine Color Urine Appearance Urine pH Ur Specific [place] Urine Protein Urine Glucose (UA) Urine Ketones Urine Blood Urine Nitrite Ur Leukocyte Esterase Urine Osmolality 461 Ur Random Sodium 76.0 Urine Creatinine Urine Opiates Screen Urine Fentanyl Screen Ur Barbiturates Screen Ur Phencyclidine Scrn Ur Amphetamines Screen U Benzodiazepines Scrn Urine Cocaine Screen U Marijuana (THC) Screen Ethyl Alcohol COVID-19 (BILL) COVID-19 Clin Com 01/27/21 01/27/21 01/27/21 16:41 16:41 16:41 WBC RBC Hgb Hct MCV MCH MCHC RDW Plt Count MPV Immature Gran % (Auto) Neut % (Auto) Lymph % (Auto) [place] % (Auto) Eos % (Auto) Baso % (Auto) Lymph # (Auto) [place] # (Auto) Eos # (Auto) Baso # (Auto) Abs Immat Gran (auto) Absolute Neuts (auto) Absolute Nucleated RBC Nucleated RBC % (auto) Sodium 126 L Potassium 3.9 Chloride 93 L Carbon Dioxide 23 Anion Gap 14 BUN 8 L Creatinine 0.87 Estim Creat Clear Calc 151.8 Estimated GFR > 60 Random Glucose 127 H Osmolality 266 L Calcium 9.5 Magnesium 1.9 Total Bilirubin 0.4 Direct Bilirubin 0.2 AST 16 ALT 16 Alkaline Phosphatase 71 Total Protein 7.8 Albumin 5.1 H Urine Color Urine Appearance Urine pH Ur Specific [place] Urine Protein Urine Glucose (UA) Urine Ketones Urine Blood Urine Nitrite Ur Leukocyte Esterase Urine Osmolality Ur Random Sodium Urine Creatinine Urine Opiates Screen Urine Fentanyl Screen Ur Barbiturates Screen Ur Phencyclidine Scrn Ur Amphetamines Screen U Benzodiazepines Scrn Urine Cocaine Screen U Marijuana (THC) Screen Ethyl Alcohol < 10 COVID-19 (BILL) COVID-19 Double the Donation Com 01/27/21 01/28/21 01/28/21 20:00 00:44 05:55 WBC 10.4 RBC 4.24 L Hgb 13.1 L Hct 36.5 L MCV 86.1 MCH 30.9 MCHC 35.9 RDW 11.9 Plt Count 320 MPV 9.6 Immature Gran % (Auto) 0.5 H Neut % (Auto) 75.6 H Lymph % (Auto) 14.8 L [place] % (Auto) 8.1 Eos % (Auto) 0.6 Baso % (Auto) 0.4 Lymph # (Auto) 1.5 [place] # (Auto) 0.9 Eos # (Auto) 0.1 Baso # (Auto) 0.0 Abs Immat Gran (auto) 0.05 H Absolute Neuts (auto) 7.9 Absolute Nucleated RBC 0.000 Nucleated RBC % (auto) 0.0 Sodium 126 L 127 L Potassium 4.2 Chloride 95 L Carbon Dioxide 24 Anion Gap 12 BUN 7 L Creatinine 0.81 Estim Creat Clear Calc 163.1 Estimated GFR > 60 Random Glucose 115 Osmolality Calcium 9.5 Magnesium Total Bilirubin Direct Bilirubin AST ALT Alkaline Phosphatase Total Protein Albumin Urine Color Urine Appearance Urine pH Ur Specific [place] Urine Protein Urine Glucose (UA) Urine Ketones Urine Blood Urine Nitrite Ur Leukocyte Esterase Urine Osmolality Ur Random Sodium Urine Creatinine Urine Opiates Screen Urine Fentanyl Screen Ur Barbiturates Screen Ur Phencyclidine Scrn Ur Amphetamines Screen U Benzodiazepines Scrn Urine Cocaine Screen U Marijuana (THC) Screen Ethyl Alcohol COVID-19 (BILL) COVID-19 Clin Com 01/28/21 01/28/21 01/28/21 05:55 13:30 13:30 WBC RBC Hgb Hct MCV MCH MCHC RDW Plt Count MPV Immature Gran % (Auto) Neut % (Auto) Lymph % (Auto) [place] % (Auto) Eos % (Auto) Baso % (Auto) Lymph # (Auto) [place] # (Auto) Eos # (Auto) Baso # (Auto) Abs Immat Gran (auto) Absolute Neuts (auto) Absolute Nucleated RBC Nucleated RBC % (auto) Sodium 128 L Potassium 4.3 Chloride 97 Carbon Dioxide 24 Anion Gap 11 L BUN 7 L Creatinine 0.77 Estim Creat Clear Calc 171.6 Estimated GFR > 60 Random Glucose 115 Osmolality Calcium 9.5 Magnesium Total Bilirubin Direct Bilirubin AST ALT Alkaline Phosphatase Total Protein Albumin Urine Color Urine Appearance Urine pH Ur Specific [place] Urine Protein Urine Glucose (UA) Urine Ketones Urine Blood Urine Nitrite Ur Leukocyte Esterase Urine Osmolality 142 L Ur Random Sodium Urine Creatinine 33.99 Urine Opiates Screen Urine Fentanyl Screen Ur Barbiturates Screen Ur Phencyclidine Scrn Ur Amphetamines Screen U Benzodiazepines Scrn Urine Cocaine Screen U Marijuana (THC) Screen Ethyl Alcohol COVID-19 (BILL) COVID-19 Clin Com Discharge Plan Discharge Disposition: Xfer Psychiatric Hosp Discharge Diagnosis: Hyponatremia Suicidal ideation Referrals: [facility] [Primary Care Provider] - 1 Week Discharge Medications: New atorvastatin 20 mg Tablet 20 mg PO BEDTIME Qty: 30 RF: 0 lisinopril 10 mg tablet 10 mg PO DAILY Qty: 30 RF: 0 Continued valacyclovir 500 mg tablet 1 tab PO BID RF: 0 clonidine HCl 0.2 mg tablet 0.4 mg PO BEDTIME RF: 0 omeprazole 20 mg capsule,delayed release(DR/EC) 1 cap PO BID RF: 0 oxcarbazepine 600 mg tablet 600 mg PO BID RF: 0 lorazepam 1 mg tablet 1 tab PO 3XW PRN (Reason: anxiety) RF: 0 ziprasidone HCl 60 mg capsule 1 cap PO BID RF: 0 fenofibrate 160 mg tablet 1 tab PO DAILY RF: 0 Lotemax drops 1 drp ophthalmic-Left DAILY RF: 0 cyclobenzaprine 10 mg tablet 10 mg PO TID PRN (Reason: Spasms) RF: 0 venlafaxine 37.5 mg capsule,extended release 24hr 1 cap PO QAM RF: 0 venlafaxine 75 mg capsule,extended release 24hr 75 mg PO DAILY RF: 0 paroxetine HCl 30 mg tablet 1 tab PO BEDTIME RF: 0 Discontinued simvastatin 40 mg tablet 1 tab PO BEDTIME RF: 0 oxycodone-acetaminophen 5-325 mg tablet 1 - 2 tab PO Q6H PRN (Reason: pain) RF: 0 hydrochlorothiazide 25 mg tablet 1 tab PO DAILY RF: 0 lisinopril 40 mg tablet 1 tab PO DAILY RF: 0 Discharge Orders: Discharge Order (Routine); Ordered 01/28/21 Ordered By: Marcia Salamanca Forms: Patient Portal Discharge page Care Plan Goals: Check BMP in 1 week, add salt for taste and flavor, stop using hydrochlorothiazide, restrict fluids to 1.5 L Health Concerns: Hypertension/depression/anxiety/hyperlipidemia Plan of Treatment: Continue all home medication except discontinue hydrochlorothiazide and dose of lisinopril reduced to 10 mg by mouth daily.
--- NOTE | 2021-01-28 15:16 | MHC.CM.PN ---
Addendum entered by Shea Simmons 01/28/21 16:00: CM RECEIVED A RETURN CALL FROM GIN AT [facility]. SHE REPORTS THE PT DOES NOT HAVE [employer] OR [employer] SERVICES PT IS PART OF AN ADULT FOSTER CARE PROGRAM THROUGH [facility]. Addendum entered by Shea Simmons 01/28/21 15:55: CORRECTION: PT WILL TRANSFER TO TODAY Original Note: CM MET WITH PT WHO REPORTS HE LIVES WITH HIS CAREGIVER PT REPORTS HE HAS 27/11 CARE AT HOME PT DENIES USING DME PT REPORTS HIS CAREGIVER ALSO MANAGES HIS MEDS CALL OUT TO [facility] LIAISON, GIN ([phone]) TO CONFIRM PTS SERVICES AND DETERMINE IF HE HAS A HCP AWAITING RETURN CALL PT WILL DC HOME TODAY WITH RESUMPTION OF SERVICES PT REPORTS HIS CAREGIVER WILL TRANSPORT
[2021-01-28 15:58] VITALS: BP 135/80; PULSE 89; RESP 19; TEMP 37.3; O2SAT 97
== END 2021-01-28 16:32 | DRG 641 ==
LOC: HO.ED 20:37 → HO.EDOVER 01-28 00:34 → HO.S3 01-28 00:43
PROVIDERS: Physician Assistant; Admitting Provider Internal Medicine; Emergency Provider Emergency Medicine; Visit Provider Hospitalist
DX: E87.1 Hypo-osmolality and hyponatremia (principal); R45.851 Suicidal ideations; F41.9 Anxiety disorder, unspecified; F32.9 Major depressive disorder, single episode, unspecified; Z20.822 Contact with and (suspected) exposure to COVID-19; I10 Essential (primary) hypertension; K21.9 Gastro-esophageal reflux disease without esophagitis; E78.5 Hyperlipidemia, unspecified; F17.210 Nicotine dependence, cigarettes, uncomplicated; Z71.6 Tobacco abuse counseling; Z79.1 Long term (current) use of non-steroidal anti-inflammatories (NSAID); Z79.899 Other long term (current) drug therapy
CPT/HCPCS: 36415; 80048; 80076; 80307; 81003; 82077; 83735; 83930; 83935; 84295; 84300; 85025; 87635; 93005; 99285; J1650

== ENCOUNTER 2021-01-28 17:01 | Inpatient (IN) | payer OTHER, SELFPAY ==
[2021-01-28 18:00] VITALS: BP 121/81; PULSE 88; RESP 18; TEMP 36.7; O2SAT 100
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
[2021-01-28] MEDS: LORazepam 1 MG TABLET PO (19:12)
[2021-01-28] MEDS: Cyclobenzaprine HCl 10 MG TABLET PO (19:13)
[2021-01-28] MEDS: Acetaminophen 325 MG TABLET 650 MG PO (19:17)
[2021-01-28 20:22] VITALS: BP 122/83; PULSE 86; RESP 18; TEMP 36.7
[2021-01-28 21:23] VITALS: BP 128/86; PULSE 82
[2021-01-28] MEDS: cloNIDine HCL 0.2 MG TABLET 0.4 MG PO (21:23)
[2021-01-28] MEDS: OXcarbazepine 300 MG TABLET 600 MG PO ×2 (21:23→21:25)
[2021-01-28] MEDS: Atorvastatin Calcium 20 MG TABLET PO (21:24)
[2021-01-28] MEDS: Ziprasidone 60 MG CAPSULE PO (21:24)
[2021-01-28] MEDS: oxyCODONE HCl Immed Release 5 MG TABLET PO ×2 (21:55→23:00)
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
[2021-01-29] MEDS: Acetaminophen 325 MG TABLET PO (02:10)
[2021-01-29] MEDS: oxyCODONE HCl Immed Release 5 MG TABLET PO ×3 (02:10→10:53)
[2021-01-29] MEDS: Nicotine Polacrilex 2 MG GUM 4 MG BUCCAL ×6 (02:19→21:21)
[2021-01-29] MEDS: Omeprazole 20 MG CAPSULE.DR PO ×2 (05:22→20:45)
[2021-01-29] MEDS: hydrOXYzine HCL 25 MG TABLET PO (05:23)
[2021-01-29 06:00] VITALS: BP 138/97; PULSE 92; RESP 16; TEMP 36.3; O2SAT 100
[2021-01-29] MEDS: Ziprasidone 60 MG CAPSULE PO ×2 (08:17→20:46)
[2021-01-29] MEDS: Cyclobenzaprine HCl 10 MG TABLET PO ×3 (08:18→20:46)
[2021-01-29] MEDS: OXcarbazepine 300 MG TABLET 600 MG PO ×2 (08:18→20:47)
[2021-01-29] MEDS: Venlafaxine HCl ER 75 MG CAP.ER.24H PO (08:19)
[2021-01-29] MEDS: Fenofibrate 160 MG TABLET PO (08:19)
[2021-01-29 08:20] VITALS: BP 150/92; PULSE 92
[2021-01-29] MEDS: lisinopriL 10 MG TABLET PO (08:20)
[2021-01-29] MEDS: prednisoLONE Acetate 1 % Oph Susp 5 ML DRPBTL 1 DROP EYE-LEFT (08:28)
--- NOTE | 2021-01-29 09:47 | P.PNPSI_ITS ---
Subjective Subjective Date of Service: 01/29/21 Reason For Visit: hyponatremia, suicidal ideation Interim History: pt seen on 01/29 pt reports mood is better; he denies any SI at all. Pt says he's sleeping well. Pt does however report continued anxiety and asked if ativan can be switched to clonazepam. consumer loan officer reviewed med hx and discussed that outpt doc Dr. Morrison is currently prescribing ativan 0.5mg prn 3x a week. Pt understands and accepts that it seems unwise to increase or change this type of med but that it's best he work on this w/ outpt provider. He also understands that his zolfoft will be titrated which will hopefully take the edge of anxiety. Mental Status Exam Mental Status Exam Narrative: A&O. Well groomed, good hygiene, Overweight. Good eye contact, attentive. No Tics or Tremors. No abnormal involuntary movements. Calm, cooperative, engaged. Non-pressured speech, spontaneous with regular rate and rhythm, normal volume and prosody. No prolonged speech latency or dysarthria. Mood is ?anxious,? affect is anxious.. Currently denies SI/SIB/HI upon inquiry. Currently denies A/VH or delusional thought content. Thoughts are coherent, organized. No known cognitive or memory impairment. Insight/ Judgment fair and adequate Diagnostics Vital Signs (24Hr): Vital Signs - 24 hr 01/28/21 18:00 01/28/21 20:22 01/28/21 21:23 Temperature 98.0 F 98.0 F Pulse Rate 88 86 82 Respiratory Rate 18 18 Blood Pressure 121/81 122/83 128/86 Pulse Oximetry 100 01/29/21 06:00 01/29/21 08:20 Temperature 97.3 F Pulse Rate 92 92 Respiratory Rate 16 Blood Pressure 138/97 H 150/92 H Pulse Oximetry 100 Labs Results: 01/30/21 08:28 Medications Medications Current Medications Acetaminophen (Acetaminophen 325 Mg Tablet) 325 mg PO Q6H PRN PRN Reason: mod pain Last Admin: 01/29/21 02:10 Dose: 325 mg Documented by: Al Hydroxide/Mg Hydroxide (Magnesium Hydrox/Alum Hydrox 30 Ml Oral.Susp) 30 ml PO Q6H PRN PRN Reason: Heartburn/Nausea Atorvastatin Calcium (Atorvastatin Calcium 20 Mg Tablet) 20 mg PO BEDTIME JACK Last Admin: 01/28/21 21:24 Dose: 20 mg Documented by: Clonidine HCl (Clonidine Hcl 0.2 Mg Tablet) 0.4 mg PO BEDTIME [facility]; Protocol Last Admin: 01/28/21 21:23 Dose: 0.4 mg Documented by: Cyclobenzaprine HCl (Cyclobenzaprine Hcl 10 Mg Tablet) 10 mg PO TID [facility] Last Admin: 01/29/21 08:18 Dose: 10 mg Documented by: Docusate Sodium (Docusate Sodium 100 Mg Capsule) 100 mg PO DAILY PRN PRN Reason: Constipation Fenofibrate (Fenofibrate 160 Mg Tablet) 160 mg PO DAILY [facility] Last Admin: 01/29/21 08:19 Dose: 160 mg Documented by: Hydroxyzine HCl (Hydroxyzine Hcl 25 Mg Tablet) 25 mg PO BEDTIME PRN PRN Reason: Anxiety Last Admin: 01/29/21 05:23 Dose: 25 mg Documented by: Lisinopril (Lisinopril 10 Mg Tablet) 10 mg PO DAILY [facility]; Protocol Last Admin: 01/29/21 08:20 Dose: 10 mg Documented by: Lorazepam (Lorazepam 0.5 Mg Tablet) 0.5 mg PO DAILY PRN PRN Reason: Anxiety Magnesium Hydroxide (Milk Of Magnesia 30 Ml Oral.Susp) 30 ml PO DAILY PRN PRN Reason: Constipation Nicotine Polacrilex (Nicotine Polacrilex 2 Mg Gum) 4 mg BUCCAL Q2H PRN PRN Reason: nicotine withdrawal Last Admin: 01/29/21 09:26 Dose: 4 mg Documented by: Omeprazole (Omeprazole 20 Mg Capsule.Dr) 20 mg PO BID@0630,1630 [facility] Last Admin: 01/29/21 05:22 Dose: 20 mg Documented by: Oxcarbazepine (Oxcarbazepine 300 Mg Tablet) 600 mg PO BID [facility] Last Admin: 01/29/21 08:18 Dose: 600 mg Documented by: Oxcarbazepine (Oxcarbazepine 300 Mg Tablet) 600 mg PO BEDTIME [facility] Last Admin: 01/28/21 21:25 Dose: 600 mg Documented by: Oxycodone HCl (Oxycodone Hcl Immed Release 5 Mg Tablet) 10 mg PO Q6H PRN PRN Reason: mod pain Prednisolone Acetate (Prednisolone Acetate 1 % Oph Susp 5 Ml Drpbtl) 1 drop EYE-LEFT DAILY [facility] Last Admin: 01/29/21 08:28 Dose: 1 drop Documented by: Sertraline HCl (Sertraline Hcl 25 Mg Tablet) 75 mg PO BEDTIME JACK Trazodone HCl (Trazodone Hcl 50 Mg Tablet) 50 mg PO BEDTIME PRN PRN Reason: Insomnia Valacyclovir HCl (Valacycyclovir Hcl 500 Mg Tablet) 500 mg PO BID [facility] Last Admin: 01/29/21 08:19 Dose: 500 mg Documented by: Venlafaxine HCl (Venlafaxine Hcl Er 75 Mg Cap.Er.24h) 75 mg PO DAILY [facility] Last Admin: 01/29/21 08:19 Dose: 75 mg Documented by: Ziprasidone (Ziprasidone 60 Mg Capsule) 60 mg PO BID [facility] Last Admin: 01/29/21 08:17 Dose: 60 mg Documented by: Zolpidem Tartrate (Zolpidem Tartrate 5 Mg Tablet) 5 mg PO BEDTIME JACK Allergies Allergies Allergy/AdvReac Type Severity Reaction Status Date / Time amlodipine Allergy Unknown Unknown Verified 01/27/21 19:31 ibuprofen [From MOTRIN] Allergy Unknown DIFF Verified 01/27/21 19:31 URINATING Metoprolol Succinate Allergy Unknown Unknown Uncoded 01/27/21 19:31 Assessment & Plan Assessment & Plan (1) Suicidal ideation: Status: Acute Code(s): R45.851 - Suicidal ideations (2) Acute anxiety: Status: Acute Code(s): F41.9 - Anxiety disorder, unspecified (3) Depression: Status: Acute Code(s): F32.9 - Major depressive disorder, single episode, unspecified Assessment and Plan: Pt is a 35 y.o. Male who carries a dx of MDD, recurrent, KAMAR, insomnia and has co-morbid medical issue of glaucoma, now legally blind in L eye. He presented to crisis initially reporting command AH and SI, now denies those sx and states his issues are with sleep and anxiety. Per chart review, last assessed by crisis in 2014 for similar complaints and after repeated mental status updates he was referred back to OP providers. He states he does not feel any of his meds are helping. During most recent OP med appointments, his venlafaxine was being tapered down and paxil was introduced. He denies benefit and feels frustrated with how many meds he is on. His OP prescriber has only been willing to prescribe 0.5 mg ativan 3x a week for anxiety due to concomitant use of oxycodone, he expressed frustration with this stating 1 mg is helpful for sleep. He asked to resume ambien 5 mg QHS, which had been given to him on medical floor (confirmed in med hx) due to reported benefit. Also asks to be re-started on zoloft. Will discontinue paxil and he is willing to continue to titrate down on venlafaxine due to polypharmacy. He asks to be re-started on seroquel 400 mg QHS for sleep and to discontinue geodon. He also does not want to be on trileptal due to reported lack of benefit, does not like how many pills he is taking, has had recent issues with hyponatremia. States clonidine is not working for sleep but may be helping with HTN. Also asks to be switched from ativan to klonopin. Understands that due to multiple medication requests, it may take time to implement all these changes and monitor for benefit. Plan: 1. Discontinue paxil 30 mg QHS and start zoloft 75 mg QHS to target sx of depression, anxiety. Will continue to titrate down on venlafaxine. 2. Continue ambien 5 mg QHS for insomnia. Continue clonidine 0.4 mg QHS for now, as this may be helping with HTN, hyperarousal. 3. Continue geodon 60 mg BID and consider switching to seroquel for mood stabi lity, as seroquel is more sedating and may help with poor sleep and anxiety. 4. Consider decreasing trileptal due to reported lack of efficacy, issues with hyponatremia. 5. Continue PRN vistaril and lorazepam- understands that OP psychiatrist is not willing to prescribe more than 0.5 mg 3x a week. Consider switching to klonopin, as this is longer acting but would continue to use sparingly per OP med regimen. Monitor response to medications. Monitor for safety in the milieu. Discharge on stabilization. Patient seen. Chart reviewed. Discussed with team. Obtain collateral contact info?as needed Greater than 50% of the session was spent on counseling and/or coordination of care Reason for contiued inpatient stay Substantial Risk for: rapid decompensation
[2021-01-29 10:40] LABS: Cholesterol 138 mg/dL; HDL Cholesterol 35 mg/dL; LDL Cholesterol Calculated 81 mg/dl; Magnesium 2.1 mg/dL (1.6-2.6); Triglycerides 110 mg/dL
[2021-01-29 10:58] LABS: Estimated Average Glucose 97 mg/dL
[2021-01-29 11:01] LABS: Free T4 (Free Thyroxine) 0.93 ng/dL (0.71-1.85); Thyroid Stimulating Hormone 1.31 uIU/mL (0.32-4.0)
[2021-01-29] MEDS: oxyCODONE HCl Immed Release 5 MG TABLET 10 MG PO ×2 (15:16→21:19)
[2021-01-29 18:00] VITALS: BP 136/73; PULSE 83
[2021-01-29 20:45] VITALS: BP 126/82; PULSE 84
[2021-01-29] MEDS: cloNIDine HCL 0.2 MG TABLET 0.4 MG PO (20:45)
[2021-01-29] MEDS: Zolpidem Tartrate 5 MG TABLET PO (20:47)
[2021-01-29] MEDS: Atorvastatin Calcium 20 MG TABLET PO (20:47)
[2021-01-29] MEDS: Sertraline HCL 25 MG TABLET 75 MG PO (20:47)
[2021-01-30] MEDS: oxyCODONE HCl Immed Release 5 MG TABLET 10 MG PO ×3 (06:11→20:05)
[2021-01-30] MEDS: Acetaminophen 325 MG TABLET PO ×2 (06:12→16:12)
[2021-01-30] MEDS: Nicotine Polacrilex 2 MG GUM 4 MG BUCCAL ×6 (06:13→20:22)
[2021-01-30] MEDS: Omeprazole 20 MG CAPSULE.DR PO ×2 (06:13→16:12)
[2021-01-30] MEDS: Venlafaxine HCl ER 75 MG CAP.ER.24H PO (08:46)
[2021-01-30] MEDS: Ziprasidone 60 MG CAPSULE PO ×2 (08:46→20:00)
[2021-01-30] MEDS: Fenofibrate 160 MG TABLET PO (08:46)
[2021-01-30] MEDS: OXcarbazepine 300 MG TABLET 600 MG PO ×2 (08:46→21:38)
[2021-01-30] MEDS: Cyclobenzaprine HCl 10 MG TABLET PO ×3 (08:46→20:00)
[2021-01-30 08:47] VITALS: BP 166/105; PULSE 86
[2021-01-30] MEDS: lisinopriL 10 MG TABLET PO (08:47)
[2021-01-30] MEDS: LORazepam 0.5 MG TABLET PO (08:49)
[2021-01-30 08:57] LABS: Alanine Aminotransferase 19 U/L (0-40); Albumin Level 5.1 g/dL (3.5-5.0); Alkaline Phosphatase 71 U/L (39-117); Anion Gap 16 (12-20); Aspartate Amino Transferase 19 U/L (5-37); Bilirubin Total 0.6 mg/dL (0.0-1.0); Blood Urea Nitrogen 11 mg/dL (9-16); Calcium 9.7 mg/dL (8.4-10.2); Carbon Dioxide 21 mmol/L (22-29); Chloride 104 mmol/L (96-108); Estimated Glomerular Filt Rate > 60; Glucose Fasting 101 mg/dL (60-99); Potassium 4.5 mmol/L (3.3-5.1); Sodium 136 mmol/L (135-145); Total Protein 7.8 g/dL (6.5-8.0)
[2021-01-30 20:00] VITALS: BP 160/90; PULSE 98
[2021-01-30] MEDS: cloNIDine HCL 0.2 MG TABLET 0.4 MG PO (20:00)
[2021-01-30] MEDS: Atorvastatin Calcium 20 MG TABLET PO (20:00)
[2021-01-30] MEDS: Sertraline HCL 25 MG TABLET 75 MG PO (20:00)
[2021-01-30] MEDS: Zolpidem Tartrate 5 MG TABLET PO (20:02)
--- NOTE | 2021-01-30 20:46 | P.PNPSI_ITS ---
Subjective Subjective Date of Service: 01/30/21 Reason For Visit: hyponatremia, suicidal ideation Interim History: pt reports that he's doing well; he feels his depression has abated and he denies any SI. Pt reports sleeping well. He still has anxiety and would like to try Gabapentin again which he's been on in the past. He agrees to try low dose prn at first to see how it works. Otherwise pt agrees with medication regimen and to continue with tapering off venlafaxine Mental Status Exam Mental Status Exam Narrative: A&O. Well groomed, good hygiene, Overweight. Good eye contact, atten tive. No Tics or Tremors. No abnormal involuntary movements. Calm, cooperative, engaged. Non-pressured speech, spontaneous with regular rate and rhythm, normal volume and prosody. No prolonged speech latency or dysarthria. Mood is ?better,? affect is congruent.. Currently denies SI/SIB/HI upon inquiry. Currently denies A/VH or delusional thought content. Thoughts are coherent, organized. No known cognitive or memory impairment. Insight/ Judgment fair and adequate Diagnostics Vital Signs (24Hr): Vital Signs - 24 hr 01/30/21 08:47 01/30/21 20:00 Pulse Rate 86 98 Blood Pressure 166/105 H 160/90 H Labs Results: 01/30/21 08:28 Labs: Laboratory Results - last 48 hr 01/29/21 01/29/21 01/30/21 09:41 09:41 08:28 Sodium 136 Potassium 4.5 Chloride 104 Carbon Dioxide 21 L Anion Gap 16 BUN 11 D Creatinine 0.86 Estim Creat Clear Calc TNP Estimated GFR > 60 Fasting Glucose 101 H Estimat Average Glucose 97 Hemoglobin A1c % 5.0 Calcium 9.7 Magnesium 2.1 Total Bilirubin 0.6 AST 19 ALT 19 Alkaline Phosphatase 71 Total Protein 7.8 Albumin 5.1 H Triglycerides 110 Cholesterol 138 LDL Cholesterol, Calc 81 HDL Cholesterol 35 TSH 1.31 Free T4 0.93 Medications Medications Current Medications Acetaminophen (Acetaminophen 325 Mg Tablet) 325 mg PO Q6H PRN PRN Reason: mod pain Last Admin: 01/30/21 16:12 Dose: 325 mg Documented by: Al Hydroxide/Mg Hydroxide (Magnesium Hydrox/Alum Hydrox 30 Ml Oral.Susp) 30 ml PO Q6H PRN PRN Reason: Heartburn/Nausea Atorvastatin Calcium (Atorvastatin Calcium 20 Mg Tablet) 20 mg PO BEDTIME REPLACED BY [facility] Last Admin: 01/30/21 20:00 Dose: 20 mg Documented by: Clonidine HCl (Clonidine Hcl 0.2 Mg Tablet) 0.4 mg PO BEDTIME REPLACED BY [facility]; Protocol Last Admin: 01/30/21 20:00 Dose: 0.4 mg Documented by: Cyclobenzaprine HCl (Cyclobenzaprine Hcl 10 Mg Tablet) 10 mg PO TID REPLACED BY [facility] Last Admin: 01/30/21 20:00 Dose: 10 mg Documented by: Docusate Sodium (Docusate Sodium 100 Mg Capsule) 100 mg PO DAILY PRN PRN Reason: Constipation Fenofibrate (Fenofibrate 160 Mg Tablet) 160 mg PO DAILY REPLACED BY [facility] Last Admin: 01/30/21 08:46 Dose: 160 mg Documented by: Gabapentin (Gabapentin 100 Mg Capsule) 100 mg PO TID PRN PRN Reason: anxiety Hydroxyzine HCl (Hydroxyzine Hcl 25 Mg Tablet) 25 mg PO BEDTIME PRN PRN Reason: Anxiety Last Admin: 01/29/21 05:23 Dose: 25 mg Documented by: Lisinopril (Lisinopril 10 Mg Tablet) 10 mg PO DAILY REPLACED BY [facility]; Protocol Last Admin: 01/30/21 08:47 Dose: 10 mg Documented by: Lorazepam (Lorazepam 0.5 Mg Tablet) 0.5 mg PO DAILY PRN PRN Reason: Anxiety Last Admin: 01/30/21 08:49 Dose: 0.5 mg Documented by: Magnesium Hydroxide (Milk Of Magnesia 30 Ml Oral.Susp) 30 ml PO DAILY PRN PRN Reason: Constipation Nicotine Polacrilex (Nicotine Polacrilex 2 Mg Gum) 4 mg BUCCAL Q1H PRN PRN Reason: nicotine withdrawal Last Admin: 01/30/21 20:22 Dose: 4 mg Documented by: Omeprazole (Omeprazole 20 Mg Capsule.Dr) 20 mg PO BID@0630,1630 REPLACED BY [facility] Last Admin: 01/30/21 16:12 Dose: 20 mg Documented by: Oxcarbazepine (Oxcarbazepine 300 Mg Tablet) 600 mg PO BID REPLACED BY [facility] Last Admin: 01/30/21 08:46 Dose: 600 mg Documented by: Oxcarbazepine (Oxcarbazepine 300 Mg Tablet) 600 mg PO BEDTIME REPLACED BY [facility] Last Admin: 01/29/21 20:47 Dose: 600 mg Documented by: Oxycodone HCl (Oxycodone Hcl Immed Release 5 Mg Tablet) 10 mg PO Q6H PRN PRN Reason: mod pain Last Admin: 01/30/21 20:05 Dose: 10 mg Documented by: Prednisolone Acetate (Prednisolone Acetate 1 % Oph Susp 5 Ml Drpbtl) 1 drop EYE-LEFT DAILY REPLACED BY [facility] Last Admin: 01/30/21 15:50 Dose: Not Given Documented by: Sertraline HCl (Sertraline Hcl 25 Mg Tablet) 75 mg PO BEDTIME REPLACED BY [facility] Last Admin: 01/30/21 20:00 Dose: 75 mg Documented by: Trazodone HCl (Trazodone Hcl 50 Mg Tablet) 50 mg PO BEDTIME PRN PRN Reason: Insomnia Valacyclovir HCl (Valacycyclovir Hcl 500 Mg Tablet) 500 mg PO BID REPLACED BY [facility] Last Admin: 01/30/21 20:00 Dose: 500 mg Documented by: Venlafaxine HCl (Venlafaxine Hcl Er 75 Mg Cap.Er.24h) 75 mg PO DAILY REPLACED BY [facility] Last Admin: 01/30/21 08:46 Dose: 75 mg Documented by: Ziprasidone (Ziprasidone 60 Mg Capsule) 60 mg PO BID REPLACED BY [facility] Last Admin: 01/30/21 20:00 Dose: 60 mg Documented by: Zolpidem Tartrate (Zolpidem Tartrate 5 Mg Tablet) 5 mg PO BEDTIME REPLACED BY [facility] Last Admin: 01/30/21 20:02 Dose: 5 mg Documented by: Allergies Allergies Allergy/AdvReac Type Severity Reaction Status Date / Time amlodipine Allergy Unknown Unknown Verified 01/27/21 19:31 ibuprofen [From MOTRIN] Allergy Unknown DIFF Verified 01/27/21 19:31 URINATING Metoprolol Succinate Allergy Unknown Unknown Uncoded 01/27/21 19:31 Assessment & Plan Assessment & Plan (1) Suicidal ideation: Status: Acute Code(s): R45.851 - Suicidal ideations (2) Acute anxiety: Status: Acute Code(s): F41.9 - Anxiety disorder, unspecified (3) Depression: Status: Acute Code(s): F32.9 - Major depressive disorder, single episode, unspecified Assessment and Plan: Pt is a 35 y.o. Male who carries a dx of MDD, recurrent, KAMAR, insomnia and has co-morbid medical issue of glaucoma, now legally blind in L eye. He presented to crisis initially reporting command AH and SI, now denies those sx and states his issues are with sleep and anxiety. Per chart review, last assessed by crisis in 2015 for similar complaints and after repeated mental status updates he was referred back to OP providers. He states he does not feel any of his meds are helping. During most recent OP med appointments, his venlafaxine was being tapered down and paxil was introduced. He denies benefit and feels frustrated with how many meds he is on. His OP prescriber has only been willing to prescribe 0.5 mg ativan 3x a week for anxiety due to concomitant use of oxycodone, he expressed frustration with this stating 1 mg is helpful for sleep. He asked to resume ambien 5 mg QHS, which had been given to him on medical floor (confirmed in med hx) due to reported benefit. Also asks to be re-started on zoloft. Will discontinue paxil and he is willing to continue to titrate down on venlafaxine due to polypharmacy. He asks to be re-started on seroquel 400 mg QHS for sleep and to discontinue geodon. He also does not want to be on trileptal due to reported lack of benefit, does not like how many pills he is taking, has had recent issues with hyponatremia. States clonidine is not working for sleep but may be helping with HTN. Also asks to be switched from ativan to klonopin. Understands that due to multiple medication requests, it may take time to implement all these changes and monitor for benefit. pt stabilizing; denies sI will further taper down venlafaxine Plan: 1. Discontinued paxil 30 mg QHS and start zoloft 75 mg QHS to target sx of depression, anxiety. Will continue to titrate down on venlafaxine. (Paxil 30 mg QD and venlafaxine 75 mg QD (per pt, he was being cross titrated from venlafaxine to paxil but has had difficulty discontinuing venlafaxine due to withdrawal effects and currently denies benefit on paxil) 2. Continue ambien 5 mg QHS for insomnia. Continue clonidine 0.4 mg QHS for now, as this may be helping with HTN, hyperarousal. 3. Continue geodon 60 mg BID and consider switching to seroquel for mood stability, as seroquel is more sedating and may help with poor sleep and anxiety. 4. Consider decreasing trileptal due to reported lack of efficacy, issues with hyponatremia. 5. Continue PRN vistaril and lorazepam- understands that OP psychiatrist is not willing to prescribe more than 0.5 mg 3x a week. Consider switching to klonopin, as this is longer acting but would continue to use sparingly per OP med regimen. Monitor response to medications. Monitor for safety in the milieu. Discharge on stabilization. Patient seen. Chart reviewed. Discussed with team. Obtain collateral contact info?as needed Greater than 50% of the session was spent on counseling and/or coordination of care Reason for contiued inpatient stay Substantial Risk for: other (improving)
[2021-01-31] MEDS: oxyCODONE HCl Immed Release 5 MG TABLET 10 MG PO ×4 (03:33→22:56)
[2021-01-31] MEDS: Nicotine Polacrilex 2 MG GUM 4 MG BUCCAL ×7 (03:34→23:02)
[2021-01-31] MEDS: hydrOXYzine HCL 25 MG TABLET PO (04:15)
[2021-01-31 06:00] VITALS: BP 154/101; PULSE 90; RESP 16; TEMP 36.5; O2SAT 98
[2021-01-31] MEDS: OXcarbazepine 300 MG TABLET 600 MG PO ×3 (08:40→20:53)
[2021-01-31] MEDS: Venlafaxine HCl ER 37.5 MG CAP.ER.24H PO (08:40)
[2021-01-31] MEDS: Cyclobenzaprine HCl 10 MG TABLET PO ×3 (08:41→20:52)
[2021-01-31] MEDS: Fenofibrate 160 MG TABLET PO (08:42)
[2021-01-31] MEDS: Ziprasidone 60 MG CAPSULE PO ×2 (08:42→20:52)
[2021-01-31] MEDS: Omeprazole 20 MG CAPSULE.DR PO ×2 (08:42→17:12)
[2021-01-31 08:43] VITALS: BP 154/101; PULSE 99
[2021-01-31] MEDS: LORazepam 0.5 MG TABLET PO (08:43)
[2021-01-31] MEDS: lisinopriL 10 MG TABLET PO (08:43)
[2021-01-31 09:05] LABS: Folate 11.5 ng/mL (> or = 4.0); Vitamin B12 827 pg/mL (200-900)
[2021-01-31] MEDS: prednisoLONE Acetate 1 % Oph Susp 5 ML DRPBTL 1 DROP EYE-LEFT (09:59)
--- NOTE | 2021-01-31 13:33 | P.PNPSI_ITS ---
Subjective Subjective Date of Service: 01/31/21 Reason For Visit: hyponatremia, suicidal ideation Interim History: pt reports his mood is good, no depression, no SI, no HI, no voices. He says however that his anxiety is very high and that ativan is not working. [employer] reminds pt that it's already higher than outpt provider prescribs. Pt agrees to try Gabapentin which he forgot was in there as a prn. He also agrees to increase Zoloft. Pt says he would like to dc on Sunday. discussed other meds and he wants to stay on Geodon and Trileptal which he agrees has probably been working Discussed ambien and pt agrees to try trazodone instead. junior copywriter talked with outpt psychiatrist Dr. Morrison who agrees with medication regimen. Mental Status Exam Mental Status Exam Narrative: A&O. Well groomed, good hygiene, Overweight. Good eye contact, attentive. No Tics or Tremors. No abnormal involuntary movements. Calm, cooperative, engaged. Non-pressured speech, spontaneous with regular rate and rhythm, normal volume and prosody. No prolonged speech latency or dysarthria. Mood is ?good,? affect is congruent.. Currently denies SI/SIB/HI upon inquiry. Currently denies A/VH or delusional thought content. Thoughts are coherent, organized. No known cognitive or memory impairment. Insight/ Judgment fair and adequate Diagnostics Vital Signs (24Hr): Vital Signs - 24 hr 01/30/21 20:00 01/31/21 06:00 01/31/21 08:43 Temperature 97.7 F Pulse Rate 98 90 99 Respiratory Rate 16 Blood Pressure 160/90 H 154/101 H 154/101 H Pulse Oximetry 98 Labs Results: 01/31/21 14:15 Labs: Laboratory Results - last 48 hr 01/29/21 01/30/21 09:41 08:28 Sodium 136 Potassium 4.5 Chloride 104 Carbon Dioxide 21 L Anion Gap 16 BUN 11 D Creatinine 0.86 Estim Creat Clear Calc TNP Estimated GFR > 60 Fasting Glucose 101 H Calcium 9.7 Total Bilirubin 0.6 AST 19 ALT 19 Alkaline Phosphatase 71 Total Protein 7.8 Albumin 5.1 H Vitamin B12 827 Folate 11.5 Medications Medications Current Medications Acetaminophen (Acetaminophen 325 Mg Tablet) 325 mg PO Q6H PRN PRN Reason: mod pain Last Admin: 01/30/21 16:12 Dose: 325 mg Documented by: Al Hydroxide/Mg Hydroxide (Magnesium Hydrox/Alum Hydrox 30 Ml Oral.Susp) 30 ml PO Q6H PRN PRN Reason: Heartburn/Nausea Atorvastatin Calcium (Atorvastatin Calcium 20 Mg Tablet) 20 mg PO BEDTIME [facility] Last Admin: 01/30/21 20:00 Dose: 20 mg Documented by: Clonidine HCl (Clonidine Hcl 0.2 Mg Tablet) 0.4 mg PO BEDTIME [facility]; Protocol Last Admin: 01/30/21 20:00 Dose: 0.4 mg Documented by: Cyclobenzaprine HCl (Cyclobenzaprine Hcl 10 Mg Tablet) 10 mg PO TID [facility] Last Admin: 01/31/21 08:41 Dose: 10 mg Documented by: Docusate Sodium (Docusate Sodium 100 Mg Capsule) 100 mg PO DAILY PRN PRN Reason: Constipation Fenofibrate (Fenofibrate 160 Mg Tablet) 160 mg PO DAILY [facility] Last Admin: 01/31/21 08:42 Dose: 160 mg Documented by: Gabapentin (Gabapentin 100 Mg Capsule) 100 mg PO TID PRN PRN Reason: anxiety Hydroxyzine HCl (Hydroxyzine Hcl 25 Mg Tablet) 25 mg PO BEDTIME PRN PRN Reason: Anxiety Last Admin: 01/31/21 04:15 Dose: 25 mg Documented by: Lisinopril (Lisinopril 10 Mg Tablet) 10 mg PO DAILY [facility]; Protocol Last Admin: 01/31/21 08:43 Dose: 10 mg Documented by: Lorazepam (Lorazepam 0.5 Mg Tablet) 0.5 mg PO DAILY PRN PRN Reason: Anxiety Last Admin: 01/31/21 08:43 Dose: 0.5 mg Documented by: Magnesium Hydroxide (Milk Of Magnesia 30 Ml Oral.Susp) 30 ml PO DAILY PRN PRN Reason: Constipation Nicotine Polacrilex (Nicotine Polacrilex 2 Mg Gum) 4 mg BUCCAL Q1H PRN PRN Reason: nicotine withdrawal Last Admin: 01/31/21 11:28 Dose: 4 mg Documented by: Omeprazole (Omeprazole 20 Mg Capsule.) 20 mg PO BID@0630,1630 [facility] Last Admin: 01/31/21 08:42 Dose: 20 mg Documented by: Oxcarbazepine (Oxcarbazepine 300 Mg Tablet) 600 mg PO BID [facility] Last Admin: 01/31/21 08:40 Dose: 600 mg Documented by: Oxcarbazepine (Oxcarbazepine 300 Mg Tablet) 600 mg PO BEDTIME [facility] Last Admin: 01/30/21 21:38 Dose: 600 mg Documented by: Oxycodone HCl (Oxycodone Hcl Immed Release 5 Mg Tablet) 10 mg PO Q6H PRN PRN Reason: mod pain Last Admin: 01/31/21 09:32 Dose: 10 mg Documented by: Prednisolone Acetate (Prednisolone Acetate 1 % Oph Susp 5 Ml Drpbtl) 1 drop EYE-LEFT DAILY [facility] Last Admin: 01/31/21 09:59 Dose: 1 drop Documented by: Sertraline HCl (Sertraline Hcl 25 Mg Tablet) 75 mg PO BEDTIME [facility] Last Admin: 01/30/21 20:00 Dose: 75 mg Documented by: Trazodone HCl (Trazodone Hcl 50 Mg Tablet) 50 mg PO BEDTIME PRN PRN Reason: Insomnia Valacyclovir HCl (Valacycyclovir Hcl 500 Mg Tablet) 500 mg PO BID [facility] Last Admin: 01/31/21 08:42 Dose: 500 mg Documented by: Venlafaxine HCl (Venlafaxine Hcl Er 37.5 Mg Cap.Er.24h) 37.5 mg PO DAILY [facility] Last Admin: 01/31/21 08:40 Dose: 37.5 mg Documented by: Ziprasidone (Ziprasidone 60 Mg Capsule) 60 mg PO BID [facility] Last Admin: 01/31/21 08:42 Dose: 60 mg Documented by: Zolpidem Tartrate (Zolpidem Tartrate 5 Mg Tablet) 5 mg PO BEDTIME [facility] Last Admin: 01/30/21 20:02 Dose: 5 mg Documented by: Allergies Allergies Allergy/AdvReac Type Severity Reaction Status Date / Time amlodipine Allergy Unknown Unknown Verified 01/27/21 19:31 ibuprofen [From MOTRIN] Allergy Unknown DIFF Verified 01/27/21 19:31 URINATING Metoprolol Succinate Allergy Unknown Unknown Uncoded 01/27/21 19:31 Assessment & Plan Assessment & Plan (1) Suicidal ideation: Status: Resolved Code(s): R45.851 - Suicidal ideations (2) MDD (major depressive disorder), recurrent, severe, with psychosis: Status: Chronic Code(s): F33.3 - Major depressive disorder, recurrent, severe with psychotic symptoms (3) PTSD (post-traumatic stress disorder): Status: Chronic Code(s): F43.10 - Post-traumatic stress disorder, unspecified (4) Hyponatremia: Status: Resolved Code(s): E87.1 - Hypo-osmolality and hyponatremia (5) KAMAR (generalized anxiety disorder): Status: Acute Code(s): F41.1 - Generalized anxiety disorder Assessment and Plan: Pt is a 35 y.o. Male who carries a dx of MDD, recurrent, KAMAR, insomnia and has co-morbid medical issue of glaucoma, now legally blind in L eye. He presented to crisis initially reporting command AH and SI, now denies those sx and states his issues are with sleep and anxiety. Per chart review, last assessed by crisis in 2014 for similar complaints and after repeated mental status updates he was referred back to OP providers. He states he does not feel any of his meds are helping. During most recent OP med appointments, his venlafaxine was being tapered down and paxil was introduced. He denies benefit and feels frustrated with how many meds he is on. His OP prescriber has only been willing to prescribe 0.5 mg ativan 3x a week for anxiety due to concomitant use of oxycodone, he expressed frustration with this stating 1 mg is helpful for sleep. He asked to resume ambien 5 mg QHS, which had been given to him on medical floor (confirmed in med hx) due to reported benefit. Also asks to be re-started on zoloft. Will discontinue paxil and he is willing to continue to titrate down on venlafaxine due to polypharmacy. He asks to be re-started on seroquel 400 mg QHS for sleep and to discontinue geodon. He also does not want to be on trileptal due to reported lack of benefit, does not like how many pills he is taking, has had recent issues with hyponatremia. States clonidine is not working for sleep but may be helping with HTN. Also asks to be switched from ativan to klonopin. Understands that due to multiple medication requests, it may take time to implement all these changes and monitor for benefit. pt stable; denies sI Plan: increased zoloft schedule trazodone to see if works instead of ambien taper down and dc venlafaxine (has been trying to taper off this for months) remain on trileptal remain on Geodon (Qtc wnl) -consulted hospitalist regarding BP and he will increase lisinopril MDD, recurrent, KAMAR, PTSD ?insomnia glaucoma, now legally blind in L eye. Greater than 50% of the session was spent on counseling and/or coordination of care Reason for contiued inpatient stay Substantial Risk for: stable for discharge
[2021-01-31 14:42] LABS: Anion Gap 15 (12-20); Blood Urea Nitrogen 9 mg/dL (9-16); Carbon Dioxide 22 mmol/L (22-29); Chloride 105 mmol/L (96-108); Estimated Glomerular Filt Rate > 60; Potassium 4.4 mmol/L (3.3-5.1); Sodium 138 mmol/L (135-145)
[2021-01-31] MEDS: Gabapentin 100 MG CAPSULE PO ×2 (15:09→17:39)
--- NOTE | 2021-01-31 15:43 | PM.EVENT ---
Event Note Date of Service: 01/31/21 Event Note: Asked to review patients chart for uncontrolled BP. BP trend reviewed. Was previously on HCTZ + Lisinopril 40mg. HCTZ was discontinued due to HypoNa. Lisinopril was decreased from 40mg to 10mg. Will increase lisinopril from 10mg currently to 20mg. Continue trending BP. May need to titrate further if still remains uncontrolled.
[2021-01-31 18:00] VITALS: BP 140/86; PULSE 90
[2021-01-31] MEDS: traZODone HCL 50 MG TABLET PO ×2 (20:52→22:02)
[2021-01-31] MEDS: Atorvastatin Calcium 20 MG TABLET PO (20:52)
[2021-01-31 20:53] VITALS: BP 132/80; PULSE 90
[2021-01-31] MEDS: cloNIDine HCL 0.2 MG TABLET 0.4 MG PO (20:53)
[2021-01-31] MEDS: Sertraline HCL 100 MG TABLET PO (20:53)
[2021-01-31] MEDS: Zolpidem Tartrate 5 MG TABLET PO (22:56)
[2021-02-01 06:00] VITALS: BP 135/89; PULSE 96; RESP 18; TEMP 36.3; O2SAT 99
[2021-02-01] MEDS: oxyCODONE HCl Immed Release 5 MG TABLET 10 MG PO ×2 (06:14→12:28)
[2021-02-01] MEDS: Omeprazole 20 MG CAPSULE.DR PO (06:14)
[2021-02-01] MEDS: Acetaminophen 325 MG TABLET PO (06:15)
[2021-02-01] MEDS: Nicotine Polacrilex 2 MG GUM 4 MG BUCCAL ×4 (06:20→12:31)
[2021-02-01] MEDS: prednisoLONE Acetate 1 % Oph Susp 5 ML DRPBTL 1 DROP EYE-LEFT (06:38)
[2021-02-01] MEDS: Cyclobenzaprine HCl 10 MG TABLET PO (09:11)
[2021-02-01] MEDS: Fenofibrate 160 MG TABLET PO (09:11)
[2021-02-01] MEDS: LORazepam 0.5 MG TABLET PO (09:11)
[2021-02-01] MEDS: Gabapentin 100 MG CAPSULE PO (09:11)
[2021-02-01 09:12] VITALS: BP 152/90; PULSE 97
[2021-02-01] MEDS: lisinopriL 20 MG TABLET PO (09:12)
[2021-02-01] MEDS: Venlafaxine HCl ER 37.5 MG CAP.ER.24H PO (09:12)
[2021-02-01] MEDS: Ziprasidone 60 MG CAPSULE PO (09:12)
[2021-02-01] MEDS: OXcarbazepine 300 MG TABLET 600 MG PO (09:12)
--- NOTE | 2021-02-01 11:21 | P.DS_ITS ---
DS: Providers Provider Date of Service: 02/01/21 Date of admission: 01/28/21 17:01 Date of discharge: 02/01/21 Primary care physician: [facility] Attending physician on admission: Albin Pearson Attending physician on discharge: Albin Pearson DS: Diagnosis Discharge Diagnosis (1) Suicidal ideation: Status: Resolved (2) MDD (major depressive disorder), recurrent, severe, with psychosis: Status: Chronic (3) PTSD (post-traumatic stress disorder): Status: Chronic (4) Hyponatremia: Status: Resolved (5) KAMAR (generalized anxiety disorder): Status: Acute DS: Medications Discharge Medications Home Medications: Home Medications Medication Instructions Recorded Confirmed Lotemax 1 drp OPHTHALMIC-LEFT DAILY 01/27/21 01/27/21 clonidine HCl 0.2 mg tablet 0.4 mg PO BEDTIME 01/27/21 01/27/21 cyclobenzaprine 10 mg tablet 10 mg PO TID PRN 01/27/21 01/27/21 fenofibrate 160 mg tablet 1 tab PO DAILY 01/27/21 01/27/21 lorazepam 1 mg tablet 1 tab PO 3XW PRN 01/27/21 01/27/21 omeprazole 20 mg capsule,delayed 1 cap PO BID 01/27/21 01/27/21 release oxcarbazepine 600 mg tablet 600 mg PO BID 01/27/21 01/27/21 paroxetine HCl 30 mg tablet 1 tab PO BEDTIME 01/27/21 01/27/21 valacyclovir 500 mg tablet 1 tab PO BID 01/27/21 01/27/21 venlafaxine 37.5 mg 1 cap PO QAM 01/27/21 01/27/21 capsule,extended release 24 hr venlafaxine 75 mg capsule,extended 75 mg PO DAILY 01/27/21 01/27/21 release 24 hr ziprasidone HCl 60 mg capsule 1 cap PO BID 01/27/21 01/27/21 Previous Rx's Medication Instructions Recorded atorvastatin 20 mg tablet 20 mg PO BEDTIME #30 tab 01/28/21 lisinopril 10 mg tablet 10 mg PO DAILY #30 tab 01/28/21 Mental Status Exam Mental Status Exam Narrative: ?A&O. Well groomed, good hygiene, Overweight. Good eye contact, attentive. No Tics or Tremors. No abnormal involuntary movements. Calm, regulatory coordinator perative, engaged. Non-pressured speech, spontaneous with regular rate and rhythm, normal volume and prosody. No prolonged speech latency or dysarthria. Mood is ?good,? affect is congruent.. Currently denies SI/SIB/HI upon inquiry. Currently denies A/VH or delusional thought content. Thoughts are coherent, organized. No known cognitive or memory impairment. Insight/ Judgment fair and adequate Data Data Completed and Pending Completed studies during hospitalization [Text1]: 01/29/21 01/29/21 01/29/21 09:41 09:41 09:41 Sodium Potassium Chloride Carbon Dioxide Anion Gap BUN Creatinine Estim Creat Clear Calc Estimated GFR Fasting Glucose Estimat Average Glucose 97 Hemoglobin A1c % 5.0 Calcium Magnesium 2.1 Total Bilirubin AST ALT Alkaline Phosphatase Total Protein Albumin Triglycerides 110 Cholesterol 138 LDL Cholesterol, Calc 81 HDL Cholesterol 35 Vitamin B12 827 Folate 11.5 TSH 1.31 Free T4 0.93 01/30/21 01/31/21 08:28 14:15 Sodium 136 138 Potassium 4.5 4.4 Chloride 104 105 Carbon Dioxide 21 L 22 Anion Gap 16 15 BUN 11 D 9 Creatinine 0.86 0.89 Estim Creat Clear Calc TNP TNP Estimated GFR > 60 > 60 Fasting Glucose 101 H Estimat Average Glucose Hemoglobin A1c % Calcium 9.7 Magnesium Total Bilirubin 0.6 AST 19 ALT 19 Alkaline Phosphatase 71 Total Protein 7.8 Albumin 5.1 H Triglycerides Cholesterol LDL Cholesterol, Calc HDL Cholesterol Vitamin B12 Folate TSH Free T4 DS: Summary Hospital Course Hospital Course: Pt is a 35 y.o. Male who carries a dx of MDD, recurrent, KAMAR, insomnia and has co-morbid medical issue of glaucoma, now legally blind in L eye. He presented to crisis initially reporting command AH and SI, now denies those sx and states his issues are with sleep and anxiety. Patient signed CV. Soon after admission patient is SI and AH resolved. Medication managment: Patient's venlafaxine was tapered w/ plan to dc as outpatient (felt it was not working wanted to get on Zoloft) Paxil was discontinued (wanted to get on Zoloft) Patient was started on Zoloft which was titrated to good effect. He was temporarily given Ambien however after talking with outpatient psychiatrist, patient agreed to switch to trazodone Clonidine was continued Trileptal was continued Ziprasidone was continued During his admission Patient attended groups and was appropriate with peers and staff; he demonstrated good behavioral and impulse control on the unit. He remained anxious and asked for increase in Ativan which was already higher than his outpatient provider was comfortable with prescribing. Youth Teacher talked with Dr. Morrison, patient's outpatient psychiatrist who recommended keeping Ativan low to which patient understood and agreed. Patient remained in good mood, depression resolved, no SI and no HI and no AVH. Patient remains stable on asked for discharge. Patient was not in imminent risk of harm to self or others and has good outpatient supports in the community with which has good report. Patient's request for discharge honored Status at Discharge Functional status at discharge: independent ambulation Overall status at discharge: patient is back to baseline Time Spent with Patient Time attestation: Total time spent providing and/or coordinating discharge services: Time spent: Greater than 30 minutes Discharge Plan Discharge Patient Disposition: Home, Self-Care Discharge Diagnosis: MDD, recurrent, severe w/ psychotic features in full remission Referrals: Angelique Rosales [Other] - 03/01/21 1:00 pm (Psychiatry Appointment Follow-up with outpatient psychiatry following discharge from [facility] [place] Angus Ralph [Other] - 02/03/21 9:00 am (Therapy Appointment Outpatient therapy appointment with provider following discharge from [facility] [place] [Primary Care Provider] - 1 Week Discharge Medications: Continued valacyclovir 500 mg tablet 1 tab PO BID RF: 0 omeprazole 20 mg capsule,delayed release(DR/EC) 1 cap PO BID RF: 0 Lotemax drops 1 drp ophthalmic-Left DAILY RF: 0 Discontinued clonidine HCl 0.2 mg tablet 0.4 mg PO BEDTIME RF: 0 oxcarbazepine 600 mg tablet 600 mg PO BID RF: 0 lorazepam 1 mg tablet 1 tab PO 3XW PRN (Reason: anxiety) RF: 0 ziprasidone HCl 60 mg capsule 1 cap PO BID RF: 0 venlafaxine 37.5 mg capsule,extended release 24hr 1 cap PO QAM RF: 0 venlafaxine 75 mg capsule,extended release 24hr 75 mg PO DAILY RF: 0 paroxetine HCl 30 mg tablet 1 tab PO BEDTIME RF: 0 lisinopril 10 mg tablet 10 mg PO DAILY Qty: 30 RF: 0 No Action oxycodone-acetaminophen 5-325 mg tablet 1 - 2 tab PO Q6H PRN (Reason: Pain) RF: 0 cyclobenzaprine 10 mg Tablet 10 mg PO TID PRN (Reason: Spasms) Qty: 90 RF: 0 atorvastatin 20 mg Tablet 20 mg PO BEDTIME Qty: 30 RF: 0 nicotine (polacrilex) 2 mg Gum 4 mg buccal Q2H PRN (Reason: nicotine withdrawal) Qty: 30 RF: 0 lisinopril 20 mg Tablet 20 mg PO DAILY Qty: 30 RF: 0 sertraline 100 mg Tablet 100 mg PO BEDTIME Qty: 30 RF: 0 clonidine HCl 0.2 mg Tablet 0.4 mg PO BEDTIME Qty: 60 RF: 0 trazodone 100 mg Tablet 200 mg PO BEDTIME Qty: 60 RF: 0 gabapentin 300 mg Capsule 300 mg PO TID Qty: 90 RF: 0 ziprasidone HCl 60 mg Capsule 60 mg PO BIDAC Qty: 60 RF: 0 fenofibrate 160 mg Tablet 160 mg PO DAILY Qty: 30 RF: 0 oxcarbazepine 600 mg tablet 600 mg PO DAILY Qty: 30 RF: 0 oxcarbazepine 600 mg Tablet 1,200 mg PO BEDTIME Qty: 60 RF: 0 Discharge Orders: Discharge Order (Routine); Ordered 02/01/21 Ordered By: Estefani Erwin Diet: regular diet Activity on Discharge: As tolerated Stand Alone Forms: Patient Portal Discharge page Care Plan Goals: Maintain mood and safe behaviors Take medications as prescribed Practice coping skills Continue with outpatient providers and reach out to them as needed Health Concerns: Mood stability and behaviors Glaucoma Hypertension Chronic R arm pain High Cholesterol Plan of Treatment: Follow up with your PCP and psychiatric provider regarding above concerns Take medications as prescribed Assessment: Risk assessment at time of discharge:? Patient was interviewed prior to discharge and found to be fully oriented and without any SI or HI. Patient has insight and demonstrates good judgment in terms of wanting to pursue treatment. Patient is not in imminent risk of harm to self or others and has a safety plan that includes presenting to the closest ER or calling 911 if feeling unsafe.? Patient has been observed closely by nursing and unit staff throughout admission; patient has not engaged in any behaviors that suggest dangerousness to self or others and has demonstrated appropriate behaviors and impulse control. Discharge Date/Time: 02/01/21 14:31
== END 2021-02-01 14:31 | disposition home or self-care (01) | DRG 881 ==
PROVIDERS: Clinical Nurse Specialist Psychiatric/Mental Health, Adult; Admitting Provider Psychiatry & Neurology Psychiatry; Visit Provider Psychiatry & Neurology Psychiatry
DX: F32.9 Major depressive disorder, single episode, unspecified (principal); R45.851 Suicidal ideations; E87.1 Hypo-osmolality and hyponatremia; F41.1 Generalized anxiety disorder; F17.210 Nicotine dependence, cigarettes, uncomplicated; H54.40 Blindness, one eye, unspecified eye; Z71.6 Tobacco abuse counseling; Z88.6 Allergy status to analgesic agent; Z79.899 Other long term (current) drug therapy
CPT/HCPCS: 36415; 80051; 80053; 80061; 82565; 82607; 82746; 83036; 83735; 84439; 84443; 84520

== ENCOUNTER 2021-02-28 12:24 | Inpatient (IN) | payer OTHER, SELFPAY ==
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
[2021-02-28 12:55] VITALS: BP 110/70; BP 138/93; PULSE 94; PULSE 97; RESP 16; TEMP 37.2; O2SAT 100; O2SAT 98; BMI 36.4
[2021-02-28] MEDS: LORazepam 1 MG TABLET PO (13:26)
--- NOTE | 2021-02-28 14:17 | PHA.MEDREC ---
Pharmacy Consult ? Medication Reconciliation Pharmacy has completed the medication reconciliation. Jessica MongeD
[2021-02-28 14:25] LABS: Basophils Percent Auto 0.2 % (0-2); Eosinophils Absolute Auto 0.1 X10*3/uL (0.0-0.4); Eosinophils Percent Auto 1.5 % (0-4); Hematocrit 40.6 % (42-52); Hemoglobin 13.9 g/dl (14.0-18.0); Imm Gran Abs Auto 0.04 X10*3/uL (0.00-0.03); Imm Gran Pct Auto 0.5 % (0.0-0.4); Lymphocytes Absolute Auto 1.4 X10*3/uL (1.2-4.9); Lymphocytes Percent Auto 16.6 % (20-40); MANUAL DIFF FLAG NO; Mean Corpuscular HGB Conc 34.2 g/dl (31.0-36.0); Mean Corpuscular Hemoglobin 31.1 pg (27.0-33.0); Mean Corpuscular Volume 90.8 fL (80-98); Mean Platelet Volume 10.5 fL (9.4-12.4); Monocytes Absolute Auto 0.6 X10*3/uL (0.1-1.2); Monocytes Percent Auto 6.8 % (2-11); Neutrophils Absolute Auto 6.3 X10*3/uL (2.0-8.3); Neutrophils Percent Auto 74.4 % (45-73); Platelet Count 315 X10*3/uL (160-400); Red Blood Count 4.47 X10*6/uL (4.60-5.80); Red Cell Distribution Width 13.7 % (11.0-16.0); White Blood Count 8.4 X10*3/uL (4.8-10.8)
[2021-02-28 14:45] LABS: COVID-19 Test Negative (Negative); IDNOW Serial# 9DD0AD1C
[2021-02-28 14:48] LABS: Amphetamine Screen Urine Not Detected (Not Detect); Barbiturates, Urine Not Detected (Not Detect); Benzodiazepines Screen Urine Not Detected (Not Detect); Cannabinoid Screen Urine Not Detected (Not Detect); Cocaine Screen Urine Not Detected (Not Detect); Fentanyl, urine POSITIVE (Not Detect); Opiate Screen Urine POSITIVE (Not Detect); Phencyclidine Screen Urine Not Detected (Not Detect)
[2021-02-28 14:49] LABS: Alanine Aminotransferase 16 U/L (0-40); Albumin Level 4.9 g/dL (3.5-5.0); Alkaline Phosphatase 74 U/L (39-117); Anion Gap 12 (12-20); Aspartate Amino Transferase 15 U/L (5-37); Bilirubin Direct < 0.2 mg/dL (0.0-0.5); Bilirubin Total 0.3 mg/dL (0.0-1.0); Blood Urea Nitrogen 9 mg/dL (9-16); Calcium 9.6 mg/dL (8.4-10.2); Carbon Dioxide 26 mmol/L (22-29); Chloride 103 mmol/L (96-108); Creatinine Clr Calc Pharmacy 149.9; Estimated Glomerular Filt Rate > 60; Glucose Random 116 mg/dL (60-115); Potassium 4.3 mmol/L (3.3-5.1); Sodium 137 mmol/L (135-145); Total Protein 7.9 g/dL (6.5-8.0)
[2021-02-28] MEDS: Nicotine Polacrilex 2 MG GUM BUCCAL ×2 (18:31→21:30)
[2021-02-28] MEDS: oxyCODONE HCl Immed Release 5 MG TABLET PO (18:32)
[2021-02-28] MEDS: OXcarbazepine 300 MG TABLET 1200 MG PO (20:45)
[2021-02-28] MEDS: Omeprazole 20 MG CAPSULE.DR PO (20:45)
[2021-02-28] MEDS: Atorvastatin Calcium 20 MG TABLET PO (20:45)
[2021-02-28] MEDS: Sertraline HCL 100 MG TABLET PO (20:45)
[2021-02-28] MEDS: Gabapentin 100 MG CAPSULE PO (20:45)
[2021-02-28 20:55] VITALS: BP 144/96; PULSE 94
[2021-02-28] MEDS: cloNIDine HCL 0.2 MG TABLET 0.4 MG PO (20:55)
[2021-02-28 20:56] VITALS: BP 144/96; PULSE 94; RESP 22; O2SAT 99
[2021-02-28] MEDS: LORazepam 0.5 MG TABLET PO (20:58)
[2021-02-28] MEDS: Cyclobenzaprine HCl 10 MG TABLET PO (22:07)
[2021-03-01 01:15] VITALS: BP 143/96; PULSE 91; RESP 18; TEMP 36.2; O2SAT 100
[2021-03-01] MEDS: oxyCODONE HCl Immed Release 5 MG TABLET PO ×3 (01:52→14:49)
[2021-03-01 06:00] VITALS: BP 131/77; PULSE 78; RESP 18; TEMP 36.2; O2SAT 100
--- NOTE | 2021-03-01 07:02 | PC.ADMIT ---
35 year old armenian speaking male presented to [facility] from the Emergency Department via wheelchair on a CV from the ED with suicidal ideation, AH of male voices to kill himself and VH of shadows. History of MDD, PTSD, KAMAR, schizoaffective disorder, agitation, obesity, chronic pain (RUE), HTN and legally blind. Chief complaint, I'm here because [facility] is giving me a hard time and I need my medications adjusted. Calm, pleasant on interview, however wishes to go to bed. Speaks and understands basic Brazilian. Admission orders and medications initiated by provider blood bank order control clerk. Food and beverages offered. Denies HI/SI, intent, plan. Denies AVH. Oriented to unit. Cooperative with plan of care. Contracts for safety. Safety checks initiated.
[2021-03-01 08:19] VITALS: BP 141/89; PULSE 83
[2021-03-01] MEDS: buPROPion HCL 100 MG TABLET PO (08:19)
[2021-03-01] MEDS: OXcarbazepine 300 MG TABLET 600 MG PO (08:19)
[2021-03-01] MEDS: lisinopriL 20 MG TABLET PO (08:19)
[2021-03-01] MEDS: Venlafaxine HCl ER 37.5 MG CAP.ER.24H PO (08:19)
[2021-03-01] MEDS: Fenofibrate 160 MG TABLET PO (08:19)
[2021-03-01] MEDS: prednisoLONE Acetate 1 % Oph Susp 5 ML DRPBTL 1 DROP EYE-LEFT (08:25)
[2021-03-01] MEDS: Omeprazole 20 MG CAPSULE.DR PO ×2 (08:30→16:50)
[2021-03-01] MEDS: Ziprasidone 60 MG CAPSULE PO ×2 (08:30→16:50)
[2021-03-01] MEDS: Nicotine Polacrilex 2 MG GUM 4 MG BUCCAL ×5 (08:44→19:28)
[2021-03-01] MEDS: Cyclobenzaprine HCl 10 MG TABLET PO ×2 (10:28→19:22)
--- NOTE | 2021-03-01 10:37 | PC.NURSE ---
Pt reports have already received the flu vaccine this season.
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
[2021-03-01] MEDS: Gabapentin 300 MG CAPSULE PO ×2 (14:49→19:22)
[2021-03-01] MEDS: Acetaminophen 325 MG TABLET 650 MG PO (14:50)
[2021-03-01 16:56] VITALS: BP 136/86; PULSE 94; TEMP 37.1
[2021-03-01] MEDS: Atorvastatin Calcium 20 MG TABLET PO (19:22)
[2021-03-01] MEDS: OXcarbazepine 300 MG TABLET 1200 MG PO (19:22)
[2021-03-01] MEDS: Sertraline HCL 100 MG TABLET PO (19:22)
[2021-03-01 19:23] VITALS: BP 162/75; PULSE 100
[2021-03-01] MEDS: cloNIDine HCL 0.2 MG TABLET 0.4 MG PO (19:23)
[2021-03-02] MEDS: oxyCODONE HCl Immed Release 5 MG TABLET PO ×4 (02:30→22:05)
[2021-03-02] MEDS: Acetaminophen 325 MG TABLET 650 MG PO ×4 (02:30→22:13)
[2021-03-02] MEDS: LORazepam 0.5 MG TABLET PO (03:58)
[2021-03-02] MEDS: Nicotine Polacrilex 2 MG GUM 4 MG BUCCAL ×5 (04:01→22:32)
[2021-03-02] MEDS: Fenofibrate 160 MG TABLET PO (08:14)
[2021-03-02] MEDS: Gabapentin 300 MG CAPSULE PO ×3 (08:14→21:52)
[2021-03-02] MEDS: Omeprazole 20 MG CAPSULE.DR PO ×2 (08:14→16:04)
[2021-03-02] MEDS: Ziprasidone 60 MG CAPSULE PO ×2 (08:14→16:02)
[2021-03-02 08:15] VITALS: BP 175/109; PULSE 83
[2021-03-02] MEDS: lisinopriL 20 MG TABLET PO (08:15)
[2021-03-02] MEDS: OXcarbazepine 300 MG TABLET 600 MG PO (08:15)
[2021-03-02] MEDS: Cyclobenzaprine HCl 10 MG TABLET PO ×2 (08:25→15:08)
[2021-03-02] MEDS: prednisoLONE Acetate 1 % Oph Susp 5 ML DRPBTL 1 DROP EYE-LEFT (08:25)
[2021-03-02 08:38] VITALS: RESP 16; TEMP 36.3; O2SAT 97
--- NOTE | 2021-03-02 15:47 | HO.PSYCHPN ---
Subjective Subjective Date of Service: 03/02/21 Reason For Visit: Depression SI Subjective Notes: Conditional Voluntary Interim History: Pt reports that he slept well. He reports pain has been under controlled with combination of gabapentin and percoset, had discussed with pt trying scheduled tylenol and taking oxycodone prn. Pt hesitant about this change as he worried chronic should pain will exacerbate. Pt reports being on percocet for more than 10 years now. He denies SI/HI. He reports feeling anxious at times. He does report difficulty at times controlling reaction when feeling frustrated. Per nursing, pt has been visible in the unit. No Behavioral concerns. Review of Systems Review of Systems Constitutional : No Fever, No Chills Eyes: No Eye Pain, No Swelling, No Redness Cardiovascular : No Chest Pain, No SOB Respiratory : No Cough, No Sputum, No Dyspnea Gastrointestinal : No Nausea, No Vomiting, No Diarrhea, No Hematochezia, No Melena Genitourinary : No Dysuria, No Urinary Frequency, No Hematuria Musculoskeletal : No Myalgias Skin : No Skin Lesions, No rash Neuro : No Weakness, No Numbness, No Paresthesias, No Dizziness, No Headache Psych : positive Anxiety, positive Depression, positive SI/HI All other systems reviewed and are negative Constitutional: Reports lethargy Eyes: Reports loss of vision (legally blind) Denies dysphagia and Reports neck pain Cardiovascular: Denies chest pain, Denies chest pain at rest, Denies rapid heart rate, Denies lightheadedness and Denies dyspnea Respiratory: Denies dyspnea Gastrointestinal: Denies constipation, Denies dysphagia, Denies diarrhea, Denies loose stools, Denies nausea, Denies vomiting and Denies hematemesis Genitourinary: Denies urinary frequency, Denies urinary hesitancy and Denies urinary incontinence Musculoskeletal: Reports muscle cramps, Reports neck pain and Reports radiating pain into limb Reports loss of vision (legally blind) Mental Status Exam Mental Status Exam Narrative: Appearance: MO, casually groomed, fair hygiene in NAD Behavior:cooperative psychomotor: no agitation or retardation noted Speech:clear, regular rate/rhythm/volume, spontaneous Thought process:circular, repetitive Thought content:no signs of psychosis, upset about not getting right medications Mood: frustrated Affect: congruent, less labile SI:denies HI:denies VH/AH:none Delusions:none Insight/judgment:poor x 2. Memory/cog: alert, oriented x 3. ? underlying intellectual disability. Diagnostics Vital Signs (24Hr): Vital Signs - 24 hr 03/01/21 16:56 03/01/21 19:23 03/02/21 08:15 Temperature 98.8 F Pulse Rate 94 100 83 Respiratory Rate Blood Pressure 136/86 162/75 H 175/109 H Pulse Oximetry 03/02/21 08:38 Temperature 97.4 F Pulse Rate Respiratory Rate 16 Blood Pressure Pulse Oximetry 97 Body Mass Index 36.4 Labs Results: 02/28/21 14:15 02/28/21 14:15 Medications Medications Current Medications Acetaminophen (Acetaminophen 325 Mg Tablet) 650 mg PO Q6H PRN PRN Reason: Pain, Moderate (Pain Scale 4-6 Last Admin: 03/02/21 09:43 Dose: 650 mg Documented by: Atorvastatin Calcium (Atorvastatin Calcium 20 Mg Tablet) 20 mg PO BEDTIME JACK Last Admin: 03/01/21 19:22 Dose: 20 mg Documented by: Clonidine HCl (Clonidine Hcl 0.2 Mg Tablet) 0.4 mg PO BEDTIME JACK; Protocol Last Admin: 03/01/21 19:23 Dose: 0.4 mg Documented by: Cyclobenzaprine HCl (Cyclobenzaprine Hcl 10 Mg Tablet) 10 mg PO TID PRN PRN Reason: Spasms Last Admin: 03/02/21 15:08 Dose: 10 mg Documented by: Fenofibrate (Fenofibrate 160 Mg Tablet) 160 mg PO DAILY [facility]ACK Last Admin: 03/02/21 08:14 Dose: 160 mg Documented by: Gabapentin (Gabapentin 300 Mg Capsule) 300 mg PO TID JACK Last Admin: 03/02/21 14:56 Dose: 300 mg Documented by: Lisinopril (Lisinopril 20 Mg Tablet) 20 mg PO DAILY JACK; Protocol Last Admin: 03/02/21 08:15 Dose: 20 mg Documented by: Lorazepam (Lorazepam 0.5 Mg Tablet) 0.5 mg PO MoWeFr@0900 PRN PRN Reason: anxiety Last Admin: 03/02/21 03:58 Dose: 0.5 mg Documented by: Nicotine Polacrilex (Nicotine Polacrilex 2 Mg Gum) 4 mg BUCCAL Q2H PRN PRN Reason: nicotine withdrawal Last Admin: 03/02/21 13:25 Dose: 4 mg Documented by: Pt Own Medication ( (Loteprednol 0.5 %)) 0.5 % EYE-LEFT BEDTIME [facility] Non-Formulary Medication (Carboxymethylcellulose) 1 % EYE-BOTH BID [facility] Omeprazole (Omeprazole 20 Mg Capsule.Dr) 20 mg PO BID@0630,1630 [facility] Last Admin: 03/02/21 08:14 Dose: 20 mg Documented by: Oxcarbazepine (Oxcarbazepine 300 Mg Tablet) 1,200 mg PO BEDTIME [facility] Last Admin: 03/01/21 19:22 Dose: 1,200 mg Documented by: Oxcarbazepine (Oxcarbazepine 300 Mg Tablet) 600 mg PO DAILY [facility] Last Admin: 03/02/21 08:15 Dose: 600 mg Documented by: Oxycodone HCl (Oxycodone Hcl Immed Release 5 Mg Tablet) 5 mg PO Q6H PRN PRN Reason: Pain Last Admin: 03/02/21 09:43 Dose: 5 mg Documented by: Pharmacy Consult (Consult Rx Perform Med Rec) 1 each MISCELLANE ONCE PRN PRN Reason: Consult order Pharmacy Consult (Consult Rx Perform Med Rec) 1 each MISCELLANE ONCE PRN PRN Reason: Consult order Prednisolone Acetate (Prednisolone Acetate 1 % Oph Susp 5 Ml Drpbtl) 1 drop EYE-LEFT DAILY [facility] Last Admin: 03/02/21 08:25 Dose: 1 drop Documented by: Sertraline HCl (Sertraline Hcl 100 Mg Tablet) 100 mg PO BEDTIME [facility] Last Admin: 03/01/21 19:22 Dose: 100 mg Documented by: Trazodone HCl (Trazodone Hcl 100 Mg Tablet) 100 mg PO BEDTIME PRN PRN Reason: insomnia Valacyclovir HCl (Valacycyclovir Hcl 500 Mg Tablet) 500 mg PO BID [facility] Last Admin: 03/02/21 08:15 Dose: 500 mg Documented by: Ziprasidone (Ziprasidone 60 Mg Capsule) 60 mg PO BIDAC [facility] Last Admin: 03/02/21 08:14 Dose: 60 mg Documented by: Allergies Allergies Allergy/AdvReac Type Severity Reaction Status Date / Time amlodipine Allergy Unknown Unknown Verified 01/27/21 19:31 ibuprofen [From MOTRIN] Allergy Unknown DIFF Verified 01/27/21 19:31 URINATING Metoprolol Succinate Allergy Unknown Unknown Uncoded 01/27/21 19:31 Assessment & Plan Assessment & Plan (1) Intermittent explosive disorder in adult: Status: Acute Code(s): F63.81 - Intermittent explosive disorder (2) KAMAR (generalized anxiety disorder): Status: Acute Code(s): F41.1 - Generalized anxiety disorder (3) PTSD (post-traumatic stress disorder): Status: Chronic Code(s): F43.10 - Post-traumatic stress disorder, unspecified Assessment and Plan: Mr. Atkins is a 35 year-old male with hx of MDD, PTSD, I would also add intermittent explosive disorder who was brought to [facility] ED after he had episode of breaking TV, flipping bed, in context of frustration because he did not get the right medications. On the unit, pt unable to tell this commercial insurance underwriter which medication he is concern about. He does mentioned that dose of lisinopril was not accurate as it was lowered last admission. He has chronic shoulder pain which pt reports exacerbates his frustration. He does report that gabapentin was beneficial for pain last admission although it was prescribed for anxiety. He currently denies SI/HI. He does ongoing symptoms of depression or anxious mood. His only request is that medications are straighten out. This commercial insurance underwriter called [facility] and confirmed current medications. PLAN: 1. Admit to M5 2. Start Gabapentin 300mg po TID for Neuropathic pain/mood 3. Continue TRileptal for mood stabilization, explosive behaviors 4. Continue Sertraline 100mg po daily 5. Continue Trazodone for sleep- pt may benefit from sleep study OP. 6. Continue Geodon for mood- no overt signs of psychosis nor delusional content reported at this time. 7. Obtain Collateral information 8. Aftercare planning I spent minutes with the patient and/or on the patient floor today, greater than?50% of which was spent counseling/coordinating care. Reason for contiued inpatient stay Substantial Risk for: harm to self
[2021-03-02 18:00] VITALS: BP 134/72; PULSE 88; TEMP 36.2; O2SAT 98
[2021-03-02] MEDS: Sertraline HCL 100 MG TABLET PO (21:46)
[2021-03-02] MEDS: OXcarbazepine 300 MG TABLET 1200 MG PO (21:46)
[2021-03-02 21:47] VITALS: BP 158/98; PULSE 93
[2021-03-02] MEDS: cloNIDine HCL 0.2 MG TABLET 0.4 MG PO (21:47)
[2021-03-02] MEDS: Atorvastatin Calcium 20 MG TABLET PO (21:47)
[2021-03-02] MEDS: traZODone HCL 100 MG TABLET PO (22:05)
--- NOTE | 2021-03-03 00:28 | PC.NURSE ---
Patient spoke at length about how much guilt he feels from actions he did in the past. He said he thinks about these things and has flashbacks that upset him. Patient talked about his enjoyment of working on electronics and that u-tube is the way he learns. He said I really enjoy working on computers and telephone, I learned a lot from [employer]-tube. Patient also spoke about his 8 year-old son who he says is very important to him. He also has an older male friend that he likes to go with to the mall and other places for fun. His chronic right arm pain is a big issue for him and he feels somewhat hopeless about that.
[2021-03-03] MEDS: traZODone HCL 100 MG TABLET PO (00:42)
[2021-03-03 06:00] VITALS: BP 140/109; PULSE 74; TEMP 36.1; O2SAT 100
[2021-03-03 07:00] VITALS: BMI 40.9
[2021-03-03] MEDS: Fenofibrate 160 MG TABLET PO (08:05)
[2021-03-03] MEDS: Gabapentin 300 MG CAPSULE PO ×3 (08:05→19:42)
[2021-03-03 08:06] VITALS: BP 136/90; PULSE 89
[2021-03-03] MEDS: lisinopriL 20 MG TABLET PO (08:06)
[2021-03-03] MEDS: Ziprasidone 60 MG CAPSULE PO ×2 (08:06→16:20)
[2021-03-03] MEDS: Nicotine Polacrilex 2 MG GUM 4 MG BUCCAL ×5 (08:06→21:03)
[2021-03-03] MEDS: Omeprazole 20 MG CAPSULE.DR PO ×2 (08:06→16:20)
[2021-03-03] MEDS: oxyCODONE HCl Immed Release 5 MG TABLET PO ×3 (08:06→21:02)
[2021-03-03] MEDS: Acetaminophen 325 MG TABLET 650 MG PO ×2 (08:06→14:38)
[2021-03-03] MEDS: OXcarbazepine 300 MG TABLET 600 MG PO (08:06)
--- NOTE | 2021-03-03 11:49 | P.PNPSI_ITS ---
Subjective Subjective Date of Service: 03/03/21 Reason For Visit: Depression SI Subjective Notes: Conditional Voluntary Interim History: Pt reports that he slept well. He reports pain has been under controlled with combination of gabapentin and percoset, had discussed with pt trying scheduled tylenol and taking oxycodone prn. Pt hesitant about this change as he worried chronic should pain will exacerbate. Pt reports being on percocet for more than 10 years now. He denies SI/HI. He reports feeling anxious at times. He does report difficulty at times controlling reaction when feeling frustrated. Per nursing, pt has been visible in the unit. No Behavioral concerns. Medication Compliance: Yes Side effects from medications: No Attending Groups: Intermittent Review of Systems Constitutional: Reports lethargy Eyes: Reports loss of vision (legally blind) Denies dysphagia and Reports neck pain Cardiovascular: Denies chest pain, Denies chest pain at rest, Denies rapid heart rate, Denies lightheadedness and Denies dyspnea Respiratory: Denies dyspnea Gastrointestinal: Denies constipation, Denies dysphagia, Denies diarrhea, Denies loose stools, Denies nausea, Denies vomiting and Denies hematemesis Genitourinary: Denies urinary frequency, Denies urinary hesitancy and Denies urinary incontinence Musculoskeletal: Reports muscle cramps, Reports neck pain and Reports radiating pain into limb Reports loss of vision (legally blind) Mental Status Exam Mental Status Exam Narrative: Appearance: MO, casually groomed, fair hygiene in NAD Behavior:cooperative psychomotor: no agitation or retardation noted Speech:clear, regular rate/rhythm/volume, spontaneous Thought process:circular, repetitive Thought content:no signs of psychosis, upset about not getting right medications Mood: frustrated Affect: congruent, less labile SI:denies HI:denies VH/AH:none Delusions:none Insight/judgment:poor x 2. Memory/cog: alert, oriented x 3. ? underlying intellectual disability. Diagnostics Vital Signs (24Hr): Vital Signs - 24 hr 03/03/21 19:42 03/04/21 07:57 03/04/21 09:19 Temperature 97.1 F Pulse Rate 102 H 82 Respiratory Rate 18 Blood Pressure 159/57 H 139/85 Pulse Oximetry 98 Body Mass Index 40.9 Labs Results: 02/28/21 14:15 02/28/21 14:15 Medications Medications Current Medications Acetaminophen (Acetaminophen 325 Mg Tablet) 650 mg PO Q6H PRN PRN Reason: Pain, Moderate (Pain Scale 4-6 Last Admin: 03/04/21 07:57 Dose: 650 mg Documented by: Atorvastatin Calcium (Atorvastatin Calcium 20 Mg Tablet) 20 mg PO BEDTIME JACK Last Admin: 03/03/21 19:43 Dose: 20 mg Documented by: Clonidine HCl (Clonidine Hcl 0.2 Mg Tablet) 0.4 mg PO BEDTIME JACK; Protocol Last Admin: 03/03/21 19:42 Dose: 0.4 mg Documented by: Cyclobenzaprine HCl (Cyclobenzaprine Hcl 10 Mg Tablet) 10 mg PO TID PRN PRN Reason: Spasms Last Admin: 03/03/21 13:22 Dose: 10 mg Documented by: Fenofibrate (Fenofibrate 160 Mg Tablet) 160 mg PO DAILY [facility] Last Admin: 03/04/21 07:57 Dose: 160 mg Documented by: Gabapentin (Gabapentin 300 Mg Capsule) 300 mg PO TID JACK Last Admin: 03/04/21 07:57 Dose: 300 mg Documented by: Lisinopril (Lisinopril 20 Mg Tablet) 20 mg PO DAILY JACK; Protocol Last Admin: 03/04/21 07:57 Dose: 20 mg Documented by: Lorazepam (Lorazepam 0.5 Mg Tablet) 0.5 mg PO MoWeFr@0900 PRN PRN Reason: anxiety Last Admin: 03/02/21 03:58 Dose: 0.5 mg Documented by: Nicotine Polacrilex (Nicotine Polacrilex 2 Mg Gum) 4 mg BUCCAL Q2H PRN PRN Reason: nicotine withdrawal Last Admin: 03/04/21 11:19 Dose: 4 mg Documented by: Non-Formulary Medication (Carboxymethylcellulose) 1 % EYE-BOTH BID [facility] Last Admin: 03/04/21 08:49 Dose: 1 % Documented by: Non-Formulary Medication (Loteprednol) 0.5 % EYE-LEFT DAILY [facility] Last Admin: 03/04/21 08:31 Dose: Not Given Documented by: Omeprazole (Omeprazole 20 Mg Capsule.) 20 mg PO BID@0630,1630 [facility] Last Admin: 03/04/21 05:46 Dose: 20 mg Documented by: Oxcarbazepine (Oxcarbazepine 300 Mg Tablet) 1,200 mg PO BEDTIME JACK Last Admin: 03/03/21 19:41 Dose: 1,200 mg Documented by: Oxcarbazepine (Oxcarbazepine 300 Mg Tablet) 600 mg PO DAILY [facility] Last Admin: 03/04/21 07:57 Dose: 600 mg Documented by: Oxycodone HCl (Oxycodone Hcl Immed Release 5 Mg Tablet) 5 mg PO Q6H PRN PRN Reason: Pain Last Admin: 03/04/21 07:57 Dose: 5 mg Documented by: Pharmacy Consult (Consult Rx Perform Med Rec) 1 each MISCELLANE ONCE PRN PRN Reason: Consult order Pharmacy Consult (Consult Rx Perform Med Rec) 1 each MISCELLANE ONCE PRN PRN Reason: Consult order Prednisolone Acetate (Prednisolone Acetate 1 % Oph Susp 5 Ml Drpbtl) 1 drop EYE-LEFT DAILY [facility] Last Admin: 03/04/21 08:31 Dose: Not Given Documented by: Sertraline HCl (Sertraline Hcl 100 Mg Tablet) 100 mg PO BEDTIME [facility] Last Admin: 03/03/21 19:43 Dose: 100 mg Documented by: Trazodone HCl (Trazodone Hcl 100 Mg Tablet) 200 mg PO BEDTIME [facility] Last Admin: 03/03/21 19:43 Dose: 200 mg Documented by: Trazodone HCl (Trazodone Hcl 100 Mg Tablet) 100 mg PO BEDTIME PRN PRN Reason: sleep Valacyclovir HCl (Valacycyclovir Hcl 500 Mg Tablet) 500 mg PO BID [facility] Last Admin: 03/04/21 07:57 Dose: 500 mg Documented by: Ziprasidone (Ziprasidone 60 Mg Capsule) 60 mg PO BIDAC [facility] Last Admin: 03/04/21 07:58 Dose: 60 mg Documented by: Allergies Allergies Allergy/AdvReac Type Severity Reaction Status Date / Time amlodipine Allergy Unknown Unknown Verified 01/27/21 19:31 ibuprofen [From MOTRIN] Allergy Unknown DIFF Verified 01/27/21 19:31 URINATING Metoprolol Succinate Allergy Unknown Unknown Uncoded 01/27/21 19:31 Assessment & Plan Assessment & Plan (1) Intermittent explosive disorder in adult: Status: Acute Code(s): F63.81 - Intermittent explosive disorder (2) KAMAR (generalized anxiety disorder): Status: Acute Code(s): F41.1 - Generalized anxiety disorder (3) PTSD (post-traumatic stress disorder): Status: Chronic Code(s): F43.10 - Post-traumatic stress disorder, unspecified Assessment and Plan: Mr. Atkins is a 35 year-old male with hx of MDD, PTSD, I would also add inter mittent explosive disorder who was brought to [facility] ED after he had episode of breaking TV, flipping bed, in context of frustration because he did not get the right medications. On the unit, pt unable to tell this senior writer which medication he is concern about. He does mentioned that dose of lisinopril was not accurate as it was lowered last admission. He has chronic shoulder pain which pt reports exacerbates his frustration. He does report that gabapentin was beneficial for pain last admission although it was prescribed for anxiety. He currently denies SI/HI. He does ongoing symptoms of depression or anxious mood. His only request is that medications are straighten out. This senior writer called [facility] and confirmed current medications. PLAN: 1. Admit to M5 2. Start Gabapentin 300mg po TID for Neuropathic pain/mood 3. Continue TRileptal for mood stabilization, explosive behaviors 4. Continue Sertraline 100mg po daily 5. Continue Trazodone for sleep- pt may benefit from sleep study OP. 6. Continue Geodon for mood- no overt signs of psychosis nor delusional content reported at this time. 7. Obtain Collateral information 8. Aftercare planning I spent minutes with the patient and/or on the patient floor today, greater than?50% of which was spent counseling/coordinating care. Reason for contiued inpatient stay Substantial Risk for: stable for discharge
[2021-03-03] MEDS: Cyclobenzaprine HCl 10 MG TABLET PO (13:22)
[2021-03-03] MEDS: OXcarbazepine 300 MG TABLET 1200 MG PO (19:41)
[2021-03-03 19:42] VITALS: BP 159/57; PULSE 102
[2021-03-03] MEDS: cloNIDine HCL 0.2 MG TABLET 0.4 MG PO (19:42)
[2021-03-03] MEDS: traZODone HCL 100 MG TABLET 200 MG PO (19:43)
[2021-03-03] MEDS: Atorvastatin Calcium 20 MG TABLET PO (19:43)
[2021-03-03] MEDS: Sertraline HCL 100 MG TABLET PO (19:43)
[2021-03-04] MEDS: Nicotine Polacrilex 2 MG GUM 4 MG BUCCAL ×3 (05:46→11:19)
[2021-03-04] MEDS: Omeprazole 20 MG CAPSULE.DR PO (05:46)
[2021-03-04 07:57] VITALS: BP 139/85; PULSE 82
[2021-03-04] MEDS: Fenofibrate 160 MG TABLET PO (07:57)
[2021-03-04] MEDS: Acetaminophen 325 MG TABLET 650 MG PO (07:57)
[2021-03-04] MEDS: OXcarbazepine 300 MG TABLET 600 MG PO (07:57)
[2021-03-04] MEDS: lisinopriL 20 MG TABLET PO (07:57)
[2021-03-04] MEDS: Gabapentin 300 MG CAPSULE PO (07:57)
[2021-03-04] MEDS: oxyCODONE HCl Immed Release 5 MG TABLET PO (07:57)
[2021-03-04] MEDS: Ziprasidone 60 MG CAPSULE PO (07:58)
[2021-03-04 09:19] VITALS: RESP 18; TEMP 36.2; O2SAT 98
--- NOTE | 2021-03-04 11:48 | PM.PSYDC ---
DS: Providers Provider Date of Service: 03/04/21 Date of admission: 02/28/21 23:33 Date of discharge: 03/04/21 Primary care physician: Unknown Physician Consults: 02/28/21 12:35 Consult to Crisis Stat Reason for consultation: SI and hallucinations Has provider been notified: Yes Attending physician on discharge: Layla Melo DS: Diagnosis Discharge Diagnosis (1) Intermittent explosive disorder in adult: Status: Acute (2) KAMAR (generalized anxiety disorder): Status: Acute (3) PTSD (post-traumatic stress disorder): Status: Chronic DS: Medications Discharge Medications Home Medications: Home Medications Medication Instructions Recorded Confirmed Lotemax 1 drp OPHTHALMIC-LEFT DAILY 01/27/21 02/28/21 omeprazole 20 mg capsule,delayed 1 cap PO BID 01/27/21 02/28/21 release valacyclovir 500 mg tablet 1 tab PO BID 01/27/21 02/28/21 oxycodone-acetaminophen 5 mg-325 1 - 2 tab PO Q6H PRN 02/28/21 02/28/21 mg tablet Previous Rx's Medication Instructions Recorded atorvastatin 20 mg tablet 20 mg PO BEDTIME #30 tab 03/04/21 clonidine HCl 0.2 mg tablet 0.4 mg PO BEDTIME #60 tab 03/04/21 cyclobenzaprine 10 mg tablet 10 mg PO TID PRN #90 tab 03/04/21 fenofibrate 160 mg tablet 160 mg PO DAILY #30 tab 03/04/21 gabapentin 300 mg capsule 300 mg PO TID #90 cap 03/04/21 lisinopril 20 mg tablet 20 mg PO DAILY #30 tab 03/04/21 nicotine (polacrilex) 2 mg gum 4 mg BUCCAL Q2H PRN #30 ea 03/04/21 oxcarbazepine 600 mg tablet 1,200 mg PO BEDTIME #60 tab 03/04/21 oxcarbazepine 600 mg tablet 600 mg PO DAILY #30 tab 03/04/21 sertraline 100 mg tablet 100 mg PO BEDTIME #30 tab 03/04/21 trazodone 100 mg tablet 200 mg PO BEDTIME #60 tab 03/04/21 ziprasidone HCl 60 mg capsule 60 mg PO BIDAC #60 cap 03/04/21 Mental Status Exam Mental Status Exam Narrative: Appearance: MO, casually groomed, fair hygiene in NAD Behavior:cooperative psychomotor: no agitation or retardation noted Speech:clear, regular rate/rhythm/volume, spontaneous Thought process:circular, repetitive Thought content:no signs of psychosis, looking forward to return home Mood: better Affect: congruent, less labile SI:denies HI:denies VH/AH:none Delusions:none Insight/judgment:poor x 2. Memory/cog: alert, oriented x 3. ? underlying intellectual disability. Data Data Completed and Pending Completed studies during hospitalization [Text1]: 02/28/21 02/28/21 02/28/21 14:06 14:06 14:15 WBC 8.4 RBC 4.47 L Hgb 13.9 L Hct 40.6 L MCV 90.8 MCH 31.1 MCHC 34.2 RDW 13.7 Plt Count 315 MPV 10.5 Immature Gran % (Auto) 0.5 H Neut % (Auto) 74.4 H Lymph % (Auto) 16.6 L Dillon % (Auto) 6.8 Eos % (Auto) 1.5 Baso % (Auto) 0.2 Lymph # (Auto) 1.4 Dillon # (Auto) 0.6 Eos # (Auto) 0.1 Baso # (Auto) 0.0 Abs Immat Gran (auto) 0.04 H Absolute Neuts (auto) 6.3 Absolute Nucleated RBC 0.000 Nucleated RBC % (auto) 0.0 Sodium Potassium Chloride Carbon Dioxide Anion Gap BUN Creatinine Estim Creat Clear Calc Estimated GFR Random Glucose Calcium Total Bilirubin Direct Bilirubin AST ALT Alkaline Phosphatase Total Protein Albumin Urine Opiates Screen POSITIVE H Urine Fentanyl Screen POSITIVE H Ur Barbiturates Screen Not Detected Ur Phencyclidine Scrn Not Detected Ur Amphetamines Screen Not Detected U Benzodiazepines Scrn Not Detected Urine Cocaine Screen Not Detected U Marijuana (THC) Screen Not Detected COVID-19 (BILL) Negative COVID-19 Clin Com See Note 02/28/21 14:15 WBC RBC Hgb Hct MCV MCH MCHC RDW Plt Count MPV Immature Gran % (Auto) Neut % (Auto) Lymph % (Auto) Dillon % (Auto) Eos % (Auto) Baso % (Auto) Lymph # (Auto) Dillon # (Auto) Eos # (Auto) Baso # (Auto) Abs Immat Gran (auto) Absolute Neuts (auto) Absolute Nucleated RBC Nucleated RBC % (auto) Sodium 137 Potassium 4.3 Chloride 103 Carbon Dioxide 26 Anion Gap 12 BUN 9 Creatinine 0.84 Estim Creat Clear Calc 149.9 Estimated GFR > 60 Random Glucose 116 H Calcium 9.6 Total Bilirubin 0.3 Direct Bilirubin < 0.2 AST 15 ALT 16 Alkaline Phosphatase 74 Total Protein 7.9 Albumin 4.9 Urine Opiates Screen Urine Fentanyl Screen Ur Barbiturates Screen Ur Phencyclidine Scrn Ur Amphetamines Screen U Benzodiazepines Scrn Urine Cocaine Screen U Marijuana (THC) Screen COVID-19 (BILL) COVID-19 Clin Com DS: Summary Hospital Course Hospital Course: Mr. Valdez is a 35 year-old male with hx of KAMAR, MDD, PTSD, also it appears hx of explosive behaviors, impulsivity who was brought to [facility] via EMS after he had episode of breaking TV, flipping his bed and pulling knife to his neck. Pt currently lives in? with healthcare network consultant under [facility] program due to his medical conditions including legally blind, chronic pain secondary to work accident. In the ED, his utox was positive for fentanyl and opioid- pt does take percocet at home. On the unit, pt presents as somewhat restless but fairly cooperative. Pt reports that he has been having problems with his pharmacy and thinks he is not getting the right medications. He can't tell which medications he may be missing or are not the right dose. He reports he is aware that his dose of lisinopril was lowered during last admission as well as hydrochlorothiazide was discontinue due to hyponatremia (which has now resolved).? He reports that he quickly became frustrated as he couldn't reach his providers. He states he broke his 55' inch TV, he flipped his bed and later grabbed a knife and put it to his neck. He reports his caregiver ([facility] caregiver) asked him to put the knife down and he did. He denies ongoing symptoms of depression. He does report feeling anxious at times. He reports shoulder chronic pain secondary to work accident several years ago, he reports taking percocet 5mg up to 8 tablets daily. He describes shoulder pain as pin and needles. He does report that last admission here on M5 he was prescribed gabapentin 100mg po BID PRN for anxiety, which actually had some benefit for his pain. He also reports taking flexeril for pain. In terms of hx of hallucinations, he reports he hears voices when feeling frustrated telling him to hurt himself. He does not report hearing voices regularly and these description appear to be more out of his own frustration than true psychosis. He reports fair sleep- going to sleep only until 1am. He reports snoring at night, waking up with headache, however, he has never had a sleep study. Past Psychiatric History: Inpatient: most recently on 01/2021 OP: Barbara Rosales ([phone]), therapist Angus Barnes.? Suicide attempt: 2010 tried to hand himself after his brother was killed.? Past medication trials: lithium, depakote, trileptal, effexor, paxil, sertraline, seroquel, geodone, clonidine Medical Evaluation Reviewed: Yes HOSPITAL COURSE On the unit, Mr. Valdez was admitted on a CV and placed on 15 minutes checks for safety. Pt was concern about his medications which he reported he had not been getting the right ones and this really stressed him out. He reported not getting medications on time was culprit for his explosive behaviors leading to this admission. Pt appears with long hx of low frustration tolerance and poor problem solving skills. We discussed risks, benefits and alternative treatment options. Pt reported trileptal had been helpful as mood stabilizer. Therefore this medication was continued. We did discussed other mood stabilizer that could potentially be more effective for impulsive/explosive behaviors such as depakote or lithium, but pt declined. Pt reports chronic shoulder pain secondary to work accident several years ago. Pt has been on percoset for several years. He reports he recently was started while inpatient on this unit some months ago on gabapentin for anxiety 100mg po BID which he reported helped his shoulder pain. He was continued on Gabapentin and this medication was titrated to 300mg po TID. He was also continued on sertraline and geodone. He did not appear to be responding to internal stimuli. His reports of AH seemed to be in context of quickly becoming frustrated and hearing my own thoughts telling me to hurt myself. His affect was brighter, non labile. He denied symptoms of depression or anxious mood. He denied suicidal or homicidal ideation. He was sleeping and eating well. There were no incidences of disruptive behaviors nor use of restraints. Collateral information was gathered from her [facility], who reports pt appears in much improved condition in that he is much calmer, bright affect. Caregiver denied safety concerns and agreed with discharged. Status at Discharge Cognitive/behavioral status at discharge: Pt presents as calm, no signs of aggression towards self or others. He denies SI/HI. He denies VH/AH and does not appear to be responding to internal stimuli. He is future oriented as evidenced by statements related to looking forward to see family and continue OP psych tx. Functional status at discharge: independent ambulation Overall status at discharge: patient is progressing back to baseline Time Spent with Patient Time attestation: Total time spent providing and/or coordinating discharge services: Time spent: Greater than 30 minutes Discharge Plan Discharge Patient Disposition: Home, Self-Care Discharge Diagnosis: PTSD Intermittent explosive disorder Referrals: Angus Ralph [Other] - 03/10/21 9:45 am (Tele-health appointment with therapist ) Angelique Benavidez [Other] - 04/14/21 12:10 pm (Psychiatry Appointment with outpatient medication provider ) Tristian Rubio MD [Physician] - 03/09/21 4:20 pm (in office) Discharge Medications: New cyclobenzaprine 10 mg Tablet 10 mg PO TID PRN (Reason: Spasms) Qty: 90 RF: 0 atorvastatin 20 mg Tablet 20 mg PO BEDTIME Qty: 30 RF: 0 nicotine (polacrilex) 2 mg Gum 4 mg buccal Q2H PRN (Reason: nicotine withdrawal) Qty: 30 RF: 0 lisinopril 20 mg Tablet 20 mg PO DAILY Qty: 30 RF: 0 sertraline 100 mg Tablet 100 mg PO BEDTIME Qty: 30 RF: 0 clonidine HCl 0.2 mg Tablet 0.4 mg PO BEDTIME Qty: 60 RF: 0 trazodone 100 mg Tablet 200 mg PO BEDTIME Qty: 60 RF: 0 gabapentin 300 mg Capsule 300 mg PO TID Qty: 90 RF: 0 ziprasidone HCl 60 mg Capsule 60 mg PO BIDAC Qty: 60 RF: 0 fenofibrate 160 mg Tablet 160 mg PO DAILY Qty: 30 RF: 0 Continued valacyclovir 500 mg tablet 1 tab PO BID RF: 0 omeprazole 20 mg capsule,delayed release(DR/EC) 1 cap PO BID RF: 0 Lotemax drops 1 drp ophthalmic-Left DAILY RF: 0 oxycodone-acetaminophen 5-325 mg tablet 1 - 2 tab PO Q6H PRN (Reason: Pain) RF: 0 oxcarbazepine 600 mg Tablet 1,200 mg PO BEDTIME Qty: 60 RF: 0 Changed oxcarbazepine 600 mg tablet 600 mg PO DAILY Qty: 30 RF: 0 Discontinued fenofibrate 160 mg tablet 1 tab PO DAILY RF: 0 cyclobenzaprine 10 mg tablet 10 mg PO TID PRN (Reason: Spasms) RF: 0 atorvastatin 20 mg Tablet 20 mg PO BEDTIME Qty: 30 RF: 0 nicotine (polacrilex) 2 mg Gum 4 mg buccal Q1H PRN (Reason: nicotine withdrawal) 30 Days Qty: 0 RF: 0 lisinopril 20 mg Tablet 20 mg PO DAILY 30 Days Qty: 30 RF: 0 sertraline 100 mg Tablet 100 mg PO BEDTIME 30 Days Qty: 30 RF: 0 gabapentin 100 mg Capsule 100 mg PO BID PRN (Reason: anxiety) 30 Days Qty: 60 RF: 0 clonidine HCl 0.2 mg tablet 0.4 mg PO BEDTIME 30 Days Qty: 60 RF: 0 lorazepam 1 mg tablet 0.5 mg PO 3XW PRN (Reason: anxiety) 30 Days Qty: 13 RF: 0 bupropion HCl 100 mg tablet sustained-release 12 hr 1 tab PO QAM RF: 0 venlafaxine 37.5 mg capsule,extended release 24hr 37.5 mg PO DAILY RF: 0 trazodone 50 mg tablet 50 mg PO BEDTIME MDD 100mg PRN (Reason: insomnia) RF: 0 ziprasidone HCl 60 mg capsule 60 mg PO BIDAC RF: 0 Discharge Orders: Discharge Order (Routine); Ordered 03/04/21 Ordered By: Layla Melo Diet: regular diet Activity on Discharge: As tolerated Stand Alone Forms: Patient Portal Discharge page, Community Support Care Plan Goals: 1. Maintain mood 2. No SI/HI 3. No explosive behaviors, no signs of aggression towards self or others. Health Concerns: follow up with PCP Plan of Treatment: 1. take medications as prescribed 2. Go to nearest ED or call 911 in event of emergency Assessment: Affect is bright, non labile. No SIgns of aggression towards self or others. NO SI/HI. Discharge Date/Time: 03/04/21 12:45
== END 2021-03-04 12:45 | disposition home or self-care (01) | DRG 883 ==
LOC: HO.ED 23:41 → HO.PM5 23:46
PROVIDERS: Admitting Provider Psychiatry & Neurology Psychiatry; Emergency Provider Emergency Medicine; Visit Provider Social Worker
DX: F63.81 Intermittent explosive disorder (principal); R45.851 Suicidal ideations; F41.1 Generalized anxiety disorder; F43.10 Post-traumatic stress disorder, unspecified; F17.210 Nicotine dependence, cigarettes, uncomplicated; Z71.6 Tobacco abuse counseling; H54.8 Legal blindness, as defined in USA; G89.29 Other chronic pain; Z20.822 Contact with and (suspected) exposure to COVID-19; Z88.6 Allergy status to analgesic agent; Z79.899 Other long term (current) drug therapy
CPT/HCPCS: 36415; 80048; 80076; 80307; 85025; 87635; 99285

== ENCOUNTER 2021-07-20 02:38 | Emergency (ER) | payer OTHER, SELFPAY ==
[2021-07-20 02:49] VITALS: BP 140/104; PULSE 110; RESP 18; TEMP 37; O2SAT 97; BMI 44.3
--- NOTE | 2021-07-20 03:51 | ED_ITS ---
HPI - Back Pain/Injury General Chief Complaint: Back Pain/Injury Stated Complaint: Hip/Back pain Time Seen by Provider: 07/20/21 03:51 Source: patient Mode of arrival: ambulatory Limitations: no limitations History of Present Illness HPI Narrative: Patient obese with chronic pain on multiple medications also has chronic left sciatica pain for more than 2 years comes here as pain is getting worse. No focal weakness no recent trauma no bladder or bowel involvement patient is on gabapentin Percocet and Flexeril Related Data Home Medications Medication Instructions Recorded Confirmed Lotemax 1 drp OPHTHALMIC-LEFT DAILY 01/27/21 02/28/21 omeprazole 20 mg capsule,delayed 1 cap PO BID 01/27/21 02/28/21 release valacyclovir 500 mg tablet 1 tab PO BID 01/27/21 02/28/21 oxycodone-acetaminophen 5 mg-325 1 - 2 tab PO Q6H PRN 02/28/21 02/28/21 mg tablet Previous Rx's Medication Instructions Recorded atorvastatin 20 mg tablet 20 mg PO BEDTIME #30 tab 03/04/21 clonidine HCl 0.2 mg tablet 0.4 mg PO BEDTIME #60 tab 03/04/21 cyclobenzaprine 10 mg tablet 10 mg PO TID PRN #90 tab 03/04/21 fenofibrate 160 mg tablet 160 mg PO DAILY #30 tab 03/04/21 gabapentin 300 mg capsule 300 mg PO TID #90 cap 03/04/21 lisinopril 20 mg tablet 20 mg PO DAILY #30 tab 03/04/21 nicotine (polacrilex) 2 mg gum 4 mg BUCCAL Q2H PRN #30 ea 03/04/21 oxcarbazepine 600 mg tablet 1,200 mg PO BEDTIME #60 tab 03/04/21 oxcarbazepine 600 mg tablet 600 mg PO DAILY #30 tab 03/04/21 sertraline 100 mg tablet 100 mg PO BEDTIME #30 tab 03/04/21 trazodone 100 mg tablet 200 mg PO BEDTIME #60 tab 03/04/21 ziprasidone HCl 60 mg capsule 60 mg PO BIDAC #60 cap 03/04/21 Allergies Allergy/AdvReac Type Severity Reaction Status Date / Time amlodipine Allergy Unknown Unknown Verified 01/27/21 19:31 ibuprofen [From MOTRIN] Allergy Unknown DIFF Verified 01/27/21 19:31 URINATING Metoprolol Succinate Allergy Unknown Unknown Uncoded 01/27/21 19:31 Review of Systems Review of Systems: Yes all other systems are reviewed and are negative [facility] Past Medical History Medical History Anxiety Depression KAMAR (generalized anxiety disorder) Left sided numbness MDD (major depressive disorder), recurrent, severe, with psychosis PTSD (post-traumatic stress disorder) Surgical History History of surgery on arm Social History Social History Household Members: Caregiver Housing: House Do you presently have visiting nurse or other home services: No Unable to assess alcohol history related to: Unknown Alcohol intake: never Patient Tobacco Use Status: Current everyday Tobacco user Tobacco use type: Cigarette Cigarette Packs Per Day: 0.2 Cigarettes Per Day: 2 Years Smoked: 5 e-Cigarette/Vaping Use: Currently Using Second Hand Smoke Exposure: No Substance Use Type: Unknown Advance Directives: No service: No Current occupational status: disabled Sexual orientation: Straight/Heterosexual Physical Exam Vital Signs: Vital Signs: Last Vital Signs Temp 98.6 F 07/20/21 02:49 Pulse 110 H 07/20/21 02:49 Resp 18 07/20/21 02:49 BP 140/104 H 07/20/21 02:49 Pulse Ox 97 07/20/21 02:49 BMI result Body Mass Index 44.3 Appearance: Alert. Oriented X3. Mild distress obese for some Neck: Normal inspection. Neck supple. CVS: Normal heart rate and rhythm. Pulses normal. Respiratory: No respiratory distress. Equal air entry bilateral, Abdomen: Soft and nontender. Bowel sounds are present, no mass palpable, no CVA tenderness Skin: Skin warm and dry. Normal skin color. Normal skin turgor. Extremities: No lower extremity edema. No calf tenderness, tenderness at the left sciatic area with SLR positive at 45 degrees on left side Neuro: Oriented X 3. No motor deficit. No sensory deficit.No cerebellar signs , cranial nerves II-XII intact Discharge Plan Discharge Clinical Impression: Sciatica Patient Disposition: Home, Self-Care Instructions: Sciatica (ED) Additional Instructions: Continue taking much pain medication muscle relaxants as prescribed by her PCP Follow-up with pain clinic Prescriptions: No Action valacyclovir 500 mg tablet 1 tab PO BID 0RF omeprazole 20 mg capsule,delayed release(DR/EC) 1 cap PO BID 0RF Lotemax drops 1 drp ophthalmic-Left DAILY 0RF oxycodone-acetaminophen 5-325 mg tablet 1 - 2 tab PO Q6H PRN (Reason: Pain) 0RF cyclobenzaprine 10 mg Tablet 10 mg PO TID PRN (Reason: Spasms) Qty: 90 0RF atorvastatin 20 mg Tablet 20 mg PO BEDTIME Qty: 30 0RF nicotine (polacrilex) 2 mg Gum 4 mg buccal Q2H PRN (Reason: nicotine withdrawal) Qty: 30 0RF lisinopril 20 mg Tablet 20 mg PO DAILY Qty: 30 0RF Protocol: Hold for SBP< HOLD for SBP < : 90 sertraline 100 mg Tablet 100 mg PO BEDTIME Qty: 30 0RF clonidine HCl 0.2 mg Tablet 0.4 mg PO BEDTIME Qty: 60 0RF Protocol: Hold for SBP< HOLD for SBP < : 90 trazodone 100 mg Tablet 200 mg PO BEDTIME Qty: 60 0RF gabapentin 300 mg Capsule 300 mg PO TID Qty: 90 0RF ziprasidone HCl 60 mg Capsule 60 mg PO BIDAC Qty: 60 0RF fenofibrate 160 mg Tablet 160 mg PO DAILY Qty: 30 0RF oxcarbazepine 600 mg tablet 600 mg PO DAILY Qty: 30 0RF oxcarbazepine 600 mg Tablet 1,200 mg PO BEDTIME Qty: 60 0RF Referrals: [facility] [Provider Group] - 2 weeks
[2021-07-20] MEDS: Ketorolac Tromethamine 60 MG/2 ML VIAL IM (03:59)
== END 2021-07-20 04:31 | disposition home or self-care (01) ==
PROVIDERS: Emergency Provider Internal Medicine; PCP Nurse Practitioner Family
DX: M54.42 Lumbago with sciatica, left side (principal); F17.210 Nicotine dependence, cigarettes, uncomplicated; Z71.6 Tobacco abuse counseling; Z79.899 Other long term (current) drug therapy
CPT/HCPCS: 96372; 99283; 99284; J1885

== ENCOUNTER 2021-12-01 21:50 | Emergency (ER) | payer OTHER, SELFPAY ==
--- NOTE | ~2021-12-01 | XR_ITS ---
EXAMINATION: XR TIBIA AND FIBULA, LEFT CLINICAL INFORMATION: Pain status post fall COMPARISON: None TECHNIQUE: AP and lateral views of the left tibia and fibula were obtained. FINDINGS: The bones and soft tissues are normal. No fracture. No osseous lesions. XR/XR tibia fibula LT 2V IMPRESSION: Normal left tibia and fibula.
--- NOTE | ~2021-12-01 | XR_ITS ---
EXAMINATION: XR ANKLE, LEFT CLINICAL INFORMATION: Pain. Tripping. COMPARISON: 12/01/2021. TECHNIQUE: AP, lateral, and mortise views of the left ankle. FINDINGS: There is no fracture or dislocation. The ankle mortise is congruent. No ankle joint effusion. The soft tissues appear unremarkable. XR/XR ankle LT min 3V IMPRESSION: Normal left ankle.
[2021-12-01 22:47] VITALS: BP 120/79; PULSE 89; RESP 18; TEMP 36.9; O2SAT 98; BMI 42.3
[2021-12-02 03:20] VITALS: PULSE 87; RESP 20; O2SAT 97
--- NOTE | 2021-12-02 06:39 | ED_ITS ---
HPI - Extremity Injury (Lower) General Chief Complaint: Extremity Injury, Lower Stated Complaint: fall, left side pain Time Seen by Provider: 12/02/21 06:39 Source: patient, family (Mother) and spanish interpreter/translator Mode of arrival: ambulatory History of Present Illness HPI Narrative: 36-year-old male presents with pain to the left lower extremity that occurred 2 days ago he was getting out of bed he states he hit his leg, got twisted up in the sheets and fell. Patient denies any head strike or loss of consciousness and otherwise states that he is having pain in the back of his leg. He also complains of swelling as well in the foot. Otherwise, he denies any fever chills. Related Data Home Medications Medication Instructions Recorded Confirmed Lotemax 1 drp ophthalmic-Left DAILY 01/27/21 02/28/21 omeprazole 20 mg capsule,delayed 1 cap PO BID 01/27/21 02/28/21 release valacyclovir 500 mg tablet 1 tab PO BID 01/27/21 02/28/21 oxycodone-acetaminophen 5 mg-325 1 - 2 tab PO Q6H PRN Pain 02/28/21 02/28/21 mg tablet Previous Rx's Medication Instructions Recorded atorvastatin 20 mg tablet 20 mg PO BEDTIME #30 tabs 03/04/21 clonidine HCl 0.2 mg tablet 0.4 mg PO BEDTIME #60 tabs 03/04/21 cyclobenzaprine 10 mg tablet 10 mg PO TID PRN Spasms #90 tabs 03/04/21 fenofibrate 160 mg tablet 160 mg PO DAILY #30 tabs 03/04/21 gabapentin 300 mg capsule 300 mg PO TID #90 caps 03/04/21 lisinopril 20 mg tablet 20 mg PO DAILY #30 tabs 03/04/21 nicotine (polacrilex) 2 mg gum 4 mg buccal Q2H PRN nicotine 03/04/21 withdrawal #30 ea oxcarbazepine 600 mg tablet 1,200 mg PO BEDTIME #60 tabs 03/04/21 oxcarbazepine 600 mg tablet 600 mg PO DAILY #30 tabs 03/04/21 sertraline 100 mg tablet 100 mg PO BEDTIME #30 tabs 03/04/21 trazodone 100 mg tablet 200 mg PO BEDTIME #60 tabs 03/04/21 ziprasidone HCl 60 mg capsule 60 mg PO BIDAC #60 caps 03/04/21 Allergies Allergy/AdvReac Type Severity Reaction Status Date / Time amlodipine Allergy Unknown Unknown Verified 01/27/21 19:31 ibuprofen [From MOTRIN] Allergy Unknown DIFF Verified 01/27/21 19:31 URINATING Metoprolol Succinate Allergy Unknown Unknown Uncoded 01/27/21 19:31 Review of Systems Review of Systems: Pertinent positives and negatives as stated in HPI 10 point review of systems is otherwise negative. PMFSH Past Medical History Source: nursing notes reviewed Medical History Anxiety Depression KAMAR (generalized anxiety disorder) Left sided numbness MDD (major depressive disorder), recurrent, severe, with psychosis PTSD (post-traumatic stress disorder) Surgical History History of surgery on arm Social History Social History Household Members: Caregiver Housing: House Do you presently have visiting nurse or other home services: No Unable to assess alcohol history related to: Unknown Alcohol intake: never Patient Tobacco Use Status: Current everyday Tobacco user Tobacco use type: Cigarette Cigarette Packs Per Day: 0.2 Cigarettes Per Day: 2 Years Smoked: 5 e-Cigarette/Vaping Use: Currently Using Second Hand Smoke Exposure: No Substance Use Type: Unknown Advance Directives: No Advance Directives Information Provided: Yes service: No Current occupational status: disabled Sexual orientation: Straight/Heterosexual Physical Exam Vital Signs: Vital Signs: Last Vital Signs Temp 98.4 F 12/01/21 22:47 Pulse 87 12/02/21 03:20 Resp 20 12/02/21 03:20 BP 120/79 12/01/21 22:47 Pulse Ox 98 12/01/21 22:47 O2 Del Method 12/01/21 22:47 BMI result Body Mass Index 42.3 VITAL SIGNS: Reviewed. GENERAL: Well developed, well nourished, in no acute distress. HEAD: Normocephalic/atraumatic EYES: PERRLA, EOMI EARS: Ext canals without abnormality OROPHARYNX: no oral lesions noted, posterior pharynx clear LUNGS: Normal breath sounds. No adventitious sounds or accessory muscle use. SpO2<98> CARDIOVASCULAR: Regular rate and rhythm without noted murmurs ABDOMEN: Soft, non-tender, non-distended with bowel sounds. MUSCULOSKELETAL: No tenderness, deformities, or effusions noted on gross inspection. EXTREMITIES: No cyanosis, clubbing or edema; LEFT LOWER EXTREMITY: There is no obvious abrasions/laceration, no erythema or induration an pulses are strong and palpable at the PT/DP, no obvious swelling SKIN: Inspection of the skin reveals no rashes NEUROLOGIC: Alert and oriented x 4. Strength and sensation to light touch were grossly intact x 4. Course Course Course Narrative: 36-year-old male with history and clinical presentation consistent with tripping injury without head strike or loss of consciousness, patient also complaining of sciatica type pain down the back of the left lower extremity. Patient is allergic to Motrin and will be provided with Tylenol, on review of all x-rays there are no acute findings to suggest fracture or dislocation. Patient given an Yousif wrap and discharged home in stable condition with instructions follow-up with the primary care provider and continue with Tylenol, lidocaine patch. Discharge Plan Discharge Clinical Impression: Leg pain, left, Sciatic leg pain Patient Disposition: Home, Self-Care Instructions: Sciatica (ED), Lower Back Exercises (ED), Leg Pain (ED) Additional Instructions: 1. Reanudar todos los medicamentos caseros. 2. Tylenol 1000 mg, por v?a oral, cada 6 horas seg?n sea necesario para controlar el dolor. No exceda los 4000 mg dentro de las 24 horas. 3. Parche de lidoca?na, aplique en el ?tony de m?xima sensibilidad maddy se indica en el empaque exterior. 4. Venancio un seguimiento con andersen proveedor de atenci?n primaria en los pr?ximos 1 a 2 d?as para schuyler evaluaci?n y manejo adicionales. No hubo hallazgos de pau X que sugirieran fractura o dislocaci?n. Regrese a la marline de emergencias si los s?ntomas empeoran. Prescriptions: No Action valacyclovir 500 mg tablet 1 tab PO BID omeprazole 20 mg capsule,delayed release(DR/EC) 1 cap PO BID Lotemax drops 1 drp ophthalmic-Left DAILY oxycodone-acetaminophen 5-325 mg tablet 1 - 2 tab PO Q6H PRN (Reason: Pain) cyclobenzaprine 10 mg Tablet 10 mg PO TID PRN (Reason: Spasms) Qty: 90 0RF atorvastatin 20 mg Tablet 20 mg PO BEDTIME Qty: 30 0RF nicotine (polacrilex) 2 mg Gum 4 mg buccal Q2H PRN (Reason: nicotine withdrawal) Qty: 30 0RF lisinopril 20 mg Tablet 20 mg PO DAILY Qty: 30 0RF Protocol: Hold for SBP< HOLD for SBP < : 90 sertraline 100 mg Tablet 100 mg PO BEDTIME Qty: 30 0RF clonidine HCl 0.2 mg Tablet 0.4 mg PO BEDTIME Qty: 60 0RF Protocol: Hold for SBP< HOLD for SBP < : 90 trazodone 100 mg Tablet 200 mg PO BEDTIME Qty: 60 0RF gabapentin 300 mg Capsule 300 mg PO TID Qty: 90 0RF ziprasidone HCl 60 mg Capsule 60 mg PO BIDAC Qty: 60 0RF fenofibrate 160 mg Tablet 160 mg PO DAILY Qty: 30 0RF oxcarbazepine 600 mg tablet 600 mg PO DAILY Qty: 30 0RF oxcarbazepine 600 mg Tablet 1,200 mg PO BEDTIME Qty: 60 0RF Print Language: Slovenian
--- NOTE | 2021-12-02 07:24 | PC.NURSE ---
ATTEMPTED TO CALL PATIENT INTO ED. NO ANSWER IN WR
[2021-12-02] MEDS: Lidocaine 4 % Patch ADH..PATCH 1 PATCH TRANSDERMA (08:21)
[2021-12-02] MEDS: Acetaminophen 325 MG TABLET 975 MG PO (08:22)
== END 2021-12-02 08:30 | disposition home or self-care (01) ==
PROVIDERS: Emergency Provider Student in an Organized Health Care Education/Training Program
DX: M54.32 Sciatica, left side (principal); M79.662 Pain in left lower leg; F17.210 Nicotine dependence, cigarettes, uncomplicated; F41.1 Generalized anxiety disorder; Z79.02 Long term (current) use of antithrombotics/antiplatelets; Z79.899 Other long term (current) drug therapy
CPT/HCPCS: 73590; 73610; 94640; 99284